=== PATIENT | male | born 1970 | race Caucasian/White ===

== ENCOUNTER → 2016-11-12 | Outpatient (REF) | payer OTHER ==
[~2016-11-12] MED LIST: DIVA500T3 PO; TIZA4CAP3 PO; VARE1TA PO; no medications
[2016-11-12 13:51] LABS: ALBUMIN/GLOBULIN RATIO 1.18 (1.00-1.93); ALKALINE PHOSPHATASE 92 U/L (45-117); ALT/SGPT 23 U/L (12-78); ANION GAP 9 MEQ/L (8-16); AST/SGOT 11 U/L (15-37); BILIRUBIN,TOTAL 0.6 MG/DL (0.2-1.0); BLOOD UREA NITROGEN 15 MG/DL (7-18); CALCIUM LEVEL 8.8 MG/DL (8.5-10.1); CARBON DIOXIDE LEVEL 23 MEQ/L (21-32); CHLORIDE LEVEL 112 MEQ/L (98-107); CREATININE FOR GFR 0.88 MG/DL (0.70-1.30); GLOMERULAR FILTRATION RATE > 60.0 (>60); GLUCOSE, FASTING 87 MG/DL (70-105); POTASSIUM SERUM 3.9 MEQ/L (3.5-5.1); SODIUM LEVEL 144 MEQ/L (136-145); TOTAL PROTEIN 7.4 GM/DL (6.4-8.2)
[2016-11-12 13:54] LABS: BASO % 0.7 % (0.0-1.0); EOS % 0.7 % (0.0-3.0); LARGE UNSTAINED CELL # 0.1 K/mm3 (0.0-0.4); LARGE UNSTAINED CELL % 0.8 % (0.0-4.0); LYMPH # 1.2 K/mm3 (1.5-4.5); MEAN CORPUSCULAR HGB CONC 34.2 g/dl (32.0-36.5); MEAN CORPUSCULAR VOLUME 93.7 fl (80.0-96.0); MONO # 0.3 K/mm3 (0.0-0.8); MONO % 4.9 % (0.0-5.0); NEUTROPHILS % 75.9 % (36.0-66.0); PLATELET COUNT, AUTOMATED 174 k/mm3 (150-450); RED CELL DISTRIBUTION WIDTH 12.3 % (11.5-14.5); WHITE BLOOD COUNT 6.6 K/mm3 (4.0-10.0)
[2016-11-12 14:51] LABS: ERYTHROCYTE SEDIMENTATION RATE 10 mm/hr (0-15)
== END ==
LOC: M LABNEURO 08:59
PROVIDERS: ATTEND Psychiatry & Neurology Neurology
DX: R51 Headache (principal)

== ENCOUNTER 2016-12-14 10:54 | Day surgery (SDC) | payer OTHER ==
[~2016-12-14] VITALS: Ht 167.6 cm; Wt 83.5 kg
[2016-12-14] MEDS ORDERED: dexameTHASONE 10 MG/1 ML VIAL PRES.FREE (J1100) ONE (10:55)
[2016-12-14] MEDS ORDERED: EPINEPHrine 1MG/10ML SYRINGE 1.5IN ONE (10:55)
[2016-12-14] MEDS ORDERED: ROPIvacaine 0.5% 30 ML INJECTION (J2795) ONE (10:55)
[2016-12-14] MEDS ORDERED: LR 1,000 ML IV SCH ×3 (11:00→18:45)
[2016-12-14] MEDS: MIDAZOLAM INJ 2 MG/2 ML VIAL (J2250) IV PRN ×4 (11:07→13:18)
[2016-12-14] MEDS: fentaNYL 100 MCG/2 ML INJECTION (J3010) IV PRN ×3 (11:07→13:10)
[2016-12-14] MEDS ORDERED: ceFAZolin 2 GM/D5W 50 ML IV BAG (J0690) As Ordered ONE (11:14)
[2016-12-14] MEDS ORDERED: MIDAZOLAM INJ 2 MG/2 ML VIAL (J2250) As Ordered ONE ×3 (11:34→13:10)
[2016-12-14] MEDS ORDERED: fentaNYL 100 MCG/2 ML INJECTION (J3010) As Ordered ONE ×3 (11:34→16:51)
[2016-12-14] MEDS ORDERED: ROCURONIUM BROMIDE 50 MG/5 ML VIAL/SYRINGE As Ordered ONE (12:58)
[2016-12-14] MEDS ORDERED: PROPOFOL 200 MG/20 ML VIAL As Ordered ONE (12:58)
[2016-12-14] MEDS ORDERED: LIDOCAINE 2% INJ 100 MG/5 ML SDV (FOR ANES.) As Ordered ONE (12:59)
[2016-12-14] MEDS ORDERED: CLINDAMYCIN 600 MG in APPROPRIATE DILUENT 1 EA IV ONE (13:00)
[2016-12-14] MEDS ORDERED: EPINEPHrine 1MG/ML INJ 30ML MD-VIAL As Ordered ONE (13:24)
[2016-12-14] MEDS ORDERED: LIDOCAINE 1% MDV 20ML VIAL As Ordered ONE (13:24)
[2016-12-14] MEDS ORDERED: CLINDAMYCIN 600 MG/50 ML PREMIX BAG As Ordered ONE (13:36)
[2016-12-14] MEDS ORDERED: BUPIVACAINE HCL 0.25% 30 ML VIAL As Ordered ONE (13:45)
[2016-12-14] MEDS ORDERED: BUPIVACAINE HCL 0.5% 30 ML VIAL As Ordered ONE (13:47)
[2016-12-14] MEDS ORDERED: ONDANSETRON 4MG/2ML VIAL (J2405) As Ordered ONE (14:39)
[2016-12-14] MEDS ORDERED: ePHEDrine SULFATE 25 MG/5 ML(5MG/ML) SYRINGE As Ordered ONE (14:39)
[2016-12-14] MEDS ORDERED: dexameTHASONE 4 MG/ML 1ML VIAL (J1100) As Ordered ONE (14:39)
[2016-12-14] MEDS ORDERED: GLYCOPYRROLATE INJ 0.2 MG/ML 2 ML VIAL As Ordered ONE (15:41)
[2016-12-14] MEDS ORDERED: NEOSTIGMINE 1MG/ML 5 ML SYRINGE (J2710) As Ordered ONE (15:41)
[2016-12-14] MEDS ORDERED: fentaNYL 100 MCG/2 ML INJECTION (J3010) IV PRN (18:30)
[2016-12-14] MEDS ORDERED: MEPERIDINE INJ 25 MG/ML VIAL (J2175) IV PRN (18:30)
[2016-12-14] MEDS ORDERED: ONDANSETRON 4MG/2ML VIAL (J2405) IV PRN (18:30)
[2016-12-14] MEDS ORDERED: IBUPROFEN 800 MG TAB PO SCH (19:00)
[2016-12-14 20:20] VITALS: BP 155/98
[2016-12-14] MEDS ORDERED: ACETAMINOPHEN 500 MG TAB PO SCH (22:00)
--- NOTE | 2016-12-15 14:56 | RO ---
DATE OF PROCEDURE: 12/14/2016 PREPROCEDURE DIAGNOSES: 1. Full thickness left rotator cuff. 2. Left shoulder superior labral tear. 3. Left shoulder acromioclavicular joint arthrosis. POSTPROCEDURE DIAGNOSES: 1. Full thickness left rotator cuff. 2. Left shoulder superior labral tear. 3. Left shoulder acromioclavicular joint arthrosis. 4. Anterior and posterior labral tear. PROCEDURE: 1. Left shoulder arthroscopy with arthroscopic rotator cuff repair including subscapularis. 2. Left shoulder open subpectoral biceps tenodesis. 3. Left shoulder arthroscopic FE on distal clavicle excision (Remedios procedure). 4. Left shoulder antroscopic anterior and posterior labral debridement. SURGEON: Dr. Feliciano Rothman. MAP MOUNTER: Carlos Nolasco PA-C ANESTHESIA: General with preoperative interscalene nerve block. IV FLUIDS: Lactated Ringers. ESTIMATED BLOOD LOSS: 50 mL. IMPLANTS: Arthrex 4.75 SwiveLock times five and Arthrex proximal unicortical Button times. CLOSURE: Nylon and Monocryl. INDICATION: Jeison is a 46-year-old gentleman who presented to my office with severe bilateral shoulder pain, left worse than right. Physical exam revealed weakness in his subscapularis and supraspinatus bilaterally with positive Mayes and dynamic labral Shear test on the left side. MRI of the left shoulder revealed full thickness tear of the supraspinatus with tendinopathy and possible partial tear of the upper subscapularis and a superior labral tear. Unfortunately, MRI of his right shoulder also showed a large rotator cuff tear. Given his young age and the full thickness tears and pain, we did discuss operative and nonoperative treatment but I recommended surgery. I recommended starting with the left shoulder, since that is the one that is more painful. We discussed the risks and benefits of arthroscopic rotator cuff repair, open subpectoral biceps tenodesis versus tenotomy, open verses arthroscopic AC joint decompression and all other indicated procedures as dictated by intraoperative findings. He understood the risks included but were not limited to bleeding, infection, damage to adjacent neurovascular structure, deep venous thrombosis/pulmonary embolus (DVT/PE), stiffness, re-tear, weakness, failure to alleviate pain, arthritis, failure to return to his prior activity level and need for additional surgery. Written informed consent obtained. DESCRIPTION OF PROCEDURE: The patient was identified in the preoperative holding and the left shoulder initialed by myself. He received a preoperative nerve block. He was then brought to the operating room (OR) and placed supine on the well-padded operating room table with a trevino bag. General anesthesia induced without complication. Preliminary time-out performed. Examination under anesthesia revealed 170 degrees passive forward flexion, 70 degrees of external rotation with his arm at his side, and grade 1 anterior and posterior translation. He was then placed on the [id number] lateral decubitus position with an ax role and bilateral Venodyne boots. All bony prominences were well padded. The beanbag was deflated and he was secured to the OR table. The left arm was then prepped and draped in the normal sterile fashion with ChloraPrep. He received appropriate IV antibiotics within 1 hour of incision. Prior to incision, a time-out was performed in which myself and all OR staff confirmed the patient's name, medical record number, date of and the correct side, site and procedure. The left arm had been sterilely placed into the lateral decubitus traction ortiz with a STaR Sleeve. Ten pounds of traction. The shoulder joint was insufflated with 20 mL of lactated Ringers. Standard posterior vein portal made with an 11 blade. 30 degree arthroscope introduced into the joint atraumatically. Diagnostic arthroscopy carried out revealing a full thickness tear of the supraspinatus and part of the infraspinatus. There was obvious tearing in the upper half of the subscapularis. There was tearing of the anterior, superior, and posterior labrum. No significant glenohumeral arthritis. An anterior working portal was localized with a spinal needle. Purple Arthrex cannula brought into the rotator interval. Probing of the subscapularis and posterior lever push confirmed a high-grade partial articular tear of the subscapularis. Probing of the bicep labral anchor complex revealed that this was unstable. In order to treat pain from type II SLAP tear and to perform arthroscopic subscapularis repair, I performed a tenotomy of the biceps tendon with a meniscal punch. The remaining superior labrum was debrided with the shaver to the stable rim. The shaver was used to debride the anterior and posterior labrum. Posterior labral tear is actually impressive but he did not have signs of posterior instability so no repair was performed. We the proceeded with open subpectoral biceps tenodesis. A 3 cm incision was made with a 15 blade just lateral to the axilla. Electrocautery and Metzenbaum scissors to dissect down to the biceps fascia. The fascia was opened with scissors carefully and then blunt dissection down to the anterior humeral cortex. A right angle clamp was used to dissect out the long head of the biceps tendon and after visually confirming the muscle tendon junction, the tendon was received through the incision uneventfully. I did not visualize the musculocutaneous nerve during this case. Arthrex proximal tenodesis Button kit was opened and the FiberLoop used to create a running locking whip stitch. Excess tendon was cut and discarded. The FiberWire sutures were loaded through the Button. The proposed drill site was marked out with electrocautery and the tendon approximated to that sandra and found to be appropriate tension. The spade tip drill bit from the kit was used to create a unicoritcal socket along the bicipital groove about a centimeter proximal to the lower edge of the pectoralis major tendon. Irrigation was used to remove bony debris. The Button was then passed on its assistant designer into the drill hole. Sutures were tensioned and the Button was flipped. The suture toggled which reduced the tendon to the anterior humeral cortex nicely. The free needle was then used to pass one limb of the suture back through the tendon to lock the construct and knots tied by hand. Excess suture trimmed and discarded. The incision was irrigated extensively with normal saline and then closed in a layered fashion with #2-0 Vicryl for deep fascia, #2-0 Vicryl subcuticular and a running #3-0 Monocryl. We then proceeded with arthroscopic subscapularis repair. The scope placed back through the posterior portal and the lesser tuberosity foot print was debrided with the 4-5 shaver. An accessory superolateral portal was localized with a spinal needle and a cannula brought in. The Arthrex FastPass Scorpion was used to pass a FiberTape through the upper one-third of the subscapularis medial enough to get into some good quality tissue. FiberTape suture limbs were then retrieved out the anterior cannula. The punch was used to create a socket in the lesser tuberosity and then SwiveLock anchor was seated by hand and the sutures tensioned. Moosic was advanced by hand with excellent fixation. On probing of the subscapularis tendon, there was a nice tight repair. The scope was then placed in the subacromial space revealing extensive bursitis and a full thickness crescent-shaped tear of the supraspinatus and anterior infraspinatus. This was amenable to a speed bridge repair. Bursectomy was performed with the 4-5 shaver and cautery. The cautery was used to clear off any remaining tissue from the footprint. Given the patient's young age and this being a large retracted tear, I did use the Arthrex PowerPick to perform a microfracture of the greater tuberosity as a biologic augmentation. Created a six small drill holes with that. A spinal needle was used to localize the anterior medial anchor and a stab incision made with the 11 blade. A punch was used to create a socket and the first SwiveLock 4.75 preloaded with FiberTape was seated by hand with excellent fixation. The FiberTape limbs were then passed one at a time in a horizontal mattress from anterior to posterior and retrieved out an accessory anterior cannula. This step was repeated. A second SwiveLock was placed further posterior on the tuberosity just off the articular surface with excellent fixation. Those TigerTape sutures were passed twice in a horizontal mattress and retrieved out the anterior cannula. It was apparent there would be a posterior dog ear so a FiberLink was passed in the far posterior portion of the rotator cuff. The anterior Fiber and TigerTapes were then retrieved out an accessory anterolateral portal and the cannula used to reduce the rotator cuff to determine appropriate lateral anchor position. A punch and 4.75 SwiveLock seated by hand. Tape sutures were tensioned and then the anchor advanced by hand with excellent fixation. Arthroscopic garment cutter was used to trim the suture tails. This step was repeated for the posterolateral anchor with the posterior Fiber and TigerTape as well as the FiberLink. After seating the posterior anchor with excellent fixation, we were able to avoid a dog ear. The humeral head was gently internally and externally rotated and the cuff moved nicely as a unit. We then proceeded with arthroscopic distal clavicle excision. The scope was placed in the posterior portal and the cautery through the anterior portal and I debrided the acromioclavicular (AC) joint. There was [id number]-[id number] contact at the joint prior to debridement. I then used a #4-0 bur to remove approximately 6-7 mm of bone from the distal clavicle and a 1-2 mm from the acromion side. The scope was placed into the anterior portal multiple times to assess the level of resection to ensure no remaining bone was left. At the end of the distal clavicle excision, there was a nice 9-10 mm gap including removal of the posterior superior clavicle. The shoulder was irrigated and drained. Arthroscopic portals were closed with #3-0 nylon suture and then Steri-Strips were placed over the tenodesis incision. Bulk sterile bandage was applied. All counts correct times two. The patient was carefully placed into a sling with a bolster and then awakened from general anesthesia. He was transferred to the postanesthesia care unit (PACU) in stable condition. COMPLICATIONS: None. DISPOSITION: The patient will be strict non-weightbearing left upper extremity with a sling and bolster at all times. Followup in 10 days for suture removal.
== END 2016-12-14 20:30 | disposition home or self-care (01) ==
LOC: M SDC 10:54
PROVIDERS: ATTEND Orthopaedic Surgery
DX: M75.102 Unspecified rotator cuff tear or rupture of left shoulder, not specified as traumatic (principal); M19.012 Primary osteoarthritis, left shoulder; Z88.0 Allergy status to penicillin; Z87.891 Personal history of nicotine dependence; M75.22 Bicipital tendinitis, left shoulder
CPT/HCPCS: 23430; 29823; 29824; 29827; 64415; C1713

== ENCOUNTER → 2017-01-18 | Outpatient (REF) ==
--- NOTE | 2017-01-19 05:03 | REP ---
Clinical: Pain. Technique: Neutral and Y view of the left shoulder. Findings: Spurring and cortical irregularity at the acromioclavicular joint along with cortical irregularity to the humeral head and glenoid rim with small periarticular calcification is consistent with mild/moderate arthritic degenerative changes and calcific tendinopathy. Impression: Mild/moderate arthritic degenerative changes. Signed by Favio Mccormick MD 01/19/2017 04:55 A
== END ==
LOC: M SMT 09:51
PROVIDERS: ATTEND Internal Medicine
DX: Z02.9 Encounter for administrative examinations, unspecified (principal)

== ENCOUNTER 2017-07-25 05:48 | Day surgery (SDC) | payer OTHER ==
[2017-07-25] MEDS ORDERED: dexameTHASONE 10 MG/1 ML VIAL PRES.FREE (J1100) (05:49)
[2017-07-25] MEDS ORDERED: LIDOCAINE 1% MDV 20ML VIAL (05:49)
[2017-07-25] MEDS ORDERED: ROPIvacaine 0.5% 30 ML INJECTION (J2795 PER 1MG) (05:49)
[2017-07-25] MEDS ORDERED: MIDAZOLAM INJ 2 MG/2 ML VIAL (J2250) As Ordered ×2 (06:09→06:38)
[2017-07-25] MEDS ORDERED: fentaNYL 250 MCG/5 ML INJECTION (J3010) As Ordered (06:09)
[2017-07-25] MEDS ORDERED: PROPOFOL 200 MG/20 ML VIAL As Ordered (06:09)
[2017-07-25] MEDS ORDERED: ROCURONIUM BROMIDE 50 MG/5 ML VIAL As Ordered (06:09)
[2017-07-25] MEDS ORDERED: dexameTHASONE 4 MG/ML 1ML VIAL (J1100) As Ordered (06:10)
[2017-07-25] MEDS ORDERED: ONDANSETRON 4MG/2ML VIAL (J2405) As Ordered (06:10)
[2017-07-25] MEDS ORDERED: KETOROLAC 60 MG/2 ML VIAL (J1885) As Ordered (06:10)
[2017-07-25] MEDS ORDERED: LIDOCAINE 2% INJ 100 MG/5 ML SDV (FOR ANES.) As Ordered (06:10)
[2017-07-25] MEDS ORDERED: fentaNYL 100 MCG/2 ML INJECTION (J3010) As Ordered (06:38)
[2017-07-25] MEDS ORDERED: BUPIVACAINE HCL 0.5% 30 ML VIAL As Ordered (07:03)
[2017-07-25] MEDS: VANCOMYCIN HCL 1,000 MG, VIAL MATE ADAPTER 1 EACH in D5W 250 ML IV (07:12)
[2017-07-25] MEDS ORDERED: LR 1,000 ML IV ×3 (07:15→11:00)
[2017-07-25] MEDS: MIDAZOLAM INJ 2 MG/2 ML VIAL (J2250) IV (07:24)
[2017-07-25] MEDS: fentaNYL 100 MCG/2 ML INJECTION (J3010) IV (07:24)
[2017-07-25] MEDS ORDERED: ePHEDrine INJ 50 MG/ML VIAL As Ordered ×2 (07:56)
[2017-07-25] MEDS: EPINEPHrine 1MG/ML INJ 30ML MD-VIAL As Ordered (08:58)
[2017-07-25] MEDS ORDERED: HYDROmorphone HCL 1 MG/ML SYRINGE (J1170) IV (11:00)
[2017-07-25] MEDS ORDERED: ONDANSETRON 4MG/2ML VIAL (J2405) IV (11:00)
[2017-07-25] MEDS ORDERED: fentaNYL 100 MCG/2 ML INJECTION (J3010) IV (11:00)
[2017-07-25] MEDS: PERCOCET 5MG/325MG TAB PO (11:15)
== END 2017-07-25 13:36 | disposition home or self-care (01) ==
LOC: M SDC 05:48
DX: M75.121 Complete rotator cuff tear or rupture of right shoulder, not specified as traumatic (principal); M75.41 Impingement syndrome of right shoulder; K21.9 Gastro-esophageal reflux disease without esophagitis; M06.9 Rheumatoid arthritis, unspecified; G43.909 Migraine, unspecified, not intractable, without status migrainosus; R06.83 Snoring; Z88.0 Allergy status to penicillin; Z72.0 Tobacco use
CPT/HCPCS: 29827

== ENCOUNTER → 2018-03-21 | Outpatient (CLI) | payer OTHER ==
[~2018-03-21] MED LIST changes: +CALC500T49 PO; -DIVA500T3 PO; +DIVA500T94 PO; +MULT1TAB10 PO; +TIZA4CAP PO; -TIZA4CAP3 PO; +VITA100067 PO
--- NOTE | 2018-03-21 10:50 | REP ---
MRI LUMBAR SPINE WITHOUT CONTRAST: HISTORY: Bilateral leg pain. Decreased signal intensity on T2-weighted images is present in the lumbar intervertebral discs. The L3-4 through L5-S1 intervertebral discs are decreased in height. These findings are consistent with disc degeneration. There is no disc bulge or herniation at the L1-2 level. The L1 nerves exit the neural foramina without compression. A diffuse disc bulge is present at the L2-3 level. There is hypertrophy of the ligamenta flava and posterior articulating facets. These findings produce mild central canal stenosis. The L2 nerves exit the neural foramina without compression. A diffuse disc bulge is present at the L3-4 level. There is hypertrophy of the ligamenta flava and posterior articulating facets. These findings produce mild central canal stenosis. The L3 nerves exit the neural foramina without compression. A diffuse disc bulge is present at the L4-5 level. There is hypertrophy of the ligamenta flava and posterior articulating facets. These findings produce minimal central canal stenosis. The L4 nerves exit the neural foramina without compression. A diffuse disc bulge is present at the L5-S1 level. This abuts the thecal sac and S1 nerves. There is hypertrophy of the posterior articulating facets. The L5 nerves exit the neural foramina without compression. The conus medullaris is normal in appearance terminating at the level of the L1-2 intervertebral disc. Increased signal intensity on T2-weighted images is present in the endplates of T12 and L1 vertebral bodies. This represents degenerative change. IMPRESSION: 1. Mild central canal stenosis at the L2-3 and L3-4 levels secondary to disc bulge, ligamentous, and facet hypertrophy. 2. Minimal central canal stenosis at the L4-5 level secondary to disc bulge, ligamentous, and facet hypertrophy. 3. Diffuse disc bulge at the L5-S1 level. This abuts the thecal sac and S1 nerves. Electronically Signed by Akhil Stoddard MD 03/21/2018 10:52 A
== END ==
LOC: M RAD 06:49
PROVIDERS: ATTEND Physician Assistant
DX: M48.061 Spinal stenosis, lumbar region without neurogenic claudication (principal); M51.27 Other intervertebral disc displacement, lumbosacral region

== ENCOUNTER → 2018-03-30 | Outpatient (CLI) | payer OTHER ==
--- NOTE | 2018-03-30 12:01 | REP ---
MRI CERVICAL SPINE WITHOUT CONTRAST: HISTORY: Cervical radiculopathy. Neck and bilateral arm and leg pain. Rule out stenosis versus disc herniation. No comparison cervical spine imaging. TECHNIQUE: Sagittal and axial T1- and T2-weighted scans are acquired in the usual fashion with and without fat saturation. Sequences include spin echo, turbo spin-echo, and STIR imaging sequences. MRI FINDINGS: There is some straightening of the normal cervical lordosis. Cervical vertebral body heights are preserved. Alignment is otherwise normal. Cortical and medullary bone signal intensity are normal. Craniocervical junction is unremarkable. Cervical cord is normal in coarse, caliber, and signal intensity on T1- and T2-weighted scans. Axial and sagittal images at the C2-3 disc level show no significant finding. At C3-C4, there is mild disc space narrowing. There is mild diffuse disc bulging effacing the ventral subarachnoid space. No cord compression is seen. The central canal is developmentally somewhat narrow. Mid AP dimension of the thecal sac is 8.5 mm. There is mild bilateral uncovertebral spurring. At C4-5, there are similar findings with diffuse disc bulging and posterior osteophytic ridging. Mild bilateral uncovertebral spurring is seen. Canal size again noted to be developmentally small. 8.3 mm midline AP dimension. At C5-C6, there is a small central focal disc protrusion effacing the ventral subarachnoid space but not contacting or compressing the cord. No significant central canal stenosis is seen. No neural foraminal narrowing is seen at C5-6. At C6-C7, there is a broad-based central disc protrusion effacing the ventral subarachnoid space. This combined with mild dorsal ligamentum flavum hypertrophy produces mild central canal stenosis effacing the T2-weighted CSF signal intensity. The cord is not visibly compressed. Mid sagittal AP dimension of the thecal sac at the C6-C7 level is 7 mm. Cord signal intensity is normal. There is mild bilateral uncovertebral spurring. At C7-T1, there is a small right paracentral focal disc protrusion visible without cord compression. No neural foraminal narrowing. At T1-T2 and at the T2-T3, there is mild central disc bulging. IMPRESSION: Degenerative spondylosis changes. The dominant abnormality is at C6-7 where there is central canal stenosis due to broad-based focal disc protrusion. Bilateral neural foraminal narrowing. Developmentally narrow canal at C4-5 and C3-4 to some degree. Electronically Signed by Walter Saha MD 03/30/2018 12:50 P
== END ==
LOC: M RAD 10:10
PROVIDERS: ATTEND Physician Assistant
DX: M50.21 Other cervical disc displacement, high cervical region (principal); M50.221 Other cervical disc displacement at C4-C5 level; M50.122 Cervical disc disorder at C5-C6 level with radiculopathy; M50.123 Cervical disc disorder at C6-C7 level with radiculopathy; M47.892 Other spondylosis, cervical region; M50.13 Cervical disc disorder with radiculopathy, cervicothoracic region; M51.14 Intervertebral disc disorders with radiculopathy, thoracic region

== ENCOUNTER → 2018-04-21 | Outpatient (CLI) | payer OTHER ==
--- NOTE | 2018-04-21 23:58 | ECGEPIP ---
Stationary ECG Study [facility] Test Date: 2018-04-21 Pat Name: TROY ORTEGA Department: Room: - Gender: M Customer Support Agent: : [id number] Requested By: Tyree Venegas Order Number: [id number] Reading MD: Burak Schneider Measurements Intervals Hopkins Rate: 73 P: 38 IN: 188 QRS: 47 QRSD: 86 T: 21 QT: 352 QTc: 390 Interpretive Statements SINUS RHYTHM Comparison tracing not on file Electronically Signed On 04-21-2018 23:58:36 EST by Burak Schneider
== END ==
LOC: M EKG 11:56
PROVIDERS: ATTEND Physical Medicine & Rehabilitation
DX: M43.06 Spondylolysis, lumbar region (principal)

== ENCOUNTER → 2018-05-04 | Outpatient (CLI) | payer OTHER ==
[2018-05-04 11:36] LABS: HEMATOCRIT 48.3 % (42.0-52.0); HEMOGLOBIN 16.5 g/dl (13.5-17.5); MEAN CORPUSCULAR HEMOGLOBIN 31.7 pg (27.0-33.0); MEAN CORPUSCULAR HGB CONC 34.2 g/dl (32.0-36.5); MEAN CORPUSCULAR VOLUME 92.7 fl (80.0-96.0); PLATELET COUNT, AUTOMATED 208 10^3/uL (150-450); RED BLOOD COUNT 5.21 10^6/uL (4.30-6.10); WHITE BLOOD COUNT 8.7 10^3/uL (4.0-10.0)
[2018-05-04 11:47] LABS: INR 0.93; PROTHROMBIN TIME 12.6 SECONDS (12.1-14.4)
[2018-05-04 11:48] LABS: PARTIAL THROMBOPLASTIN TIME 34.4 SECONDS (25.4-37.6)
== END ==
LOC: M LAB 11:01
PROVIDERS: ATTEND Physical Medicine & Rehabilitation
DX: D69.1 Qualitative platelet defects (principal)

== ENCOUNTER → 2018-06-20 | Outpatient (CLI) | payer OTHER ==
[2018-06-20 20:03] LABS: COLLAGEN EPINEPHRINE 90 SECONDS (74-162)
== END ==
LOC: M LAB 17:56
PROVIDERS: ATTEND Physical Medicine & Rehabilitation
DX: Z01.818 Encounter for other preprocedural examination (principal)

== ENCOUNTER 2019-01-22 04:37 | Emergency (ER) | payer OTHER ==
[~2019-01-22] VITALS: Ht 167.6 cm; Wt 81.8 kg
[2019-01-22] MEDS ORDERED: KETOROLAC 30 MG/ML VIAL (J1885) IV ONE (06:30)
[2019-01-22] MEDS ORDERED: METHOCARBAMOL 1,000 MG/10 ML VIAL (J2800) IV ONE (06:30)
[2019-01-22 08:02] VITALS: BP 133/84
== END 2019-01-22 08:02 | disposition home or self-care (01) ==
LOC: M ED 04:37
DX: M54.5 Low back pain (principal); F17.200 Nicotine dependence, unspecified, uncomplicated; F12.10 Cannabis abuse, uncomplicated; Z88.0 Allergy status to penicillin
CPT/HCPCS: 96374; 96375; 99284; J1885; J2800

== ENCOUNTER → 2019-04-17 | Outpatient (CLI) | payer OTHER ==
--- NOTE | 2019-04-17 15:02 | REP ---
INDICATION: Neck pain PROCEDURE: MRI lumbar spine MRI cervical spine, sagittal T1-T2 and STIR images, axial T1 and T2-weighted images. COMPARISON STUDIES: MRI of the cervical spine 03/30/2019 FINDINGS: There is bizr-mr-[id number] multilevel degenerative disc disease loss of disc height and disc desiccation seen diffusely throughout the cervical spine. Vertebral heights are well preserved. No malalignments. Craniovertebral junction is unremarkable. Cervical cord is normal in its course, caliber and signal characteristics. On the review of axial images, At C2-3 no significant canal or foraminal narrowing At C3-4 disc/osteophyte complex with mild canal narrowing and [id number]-ca-[id number] bilateral foraminal narrowing At C4-5 disc/osteophyte complex with mild canal narrowing and owfa-xy-jvpfjpwq bilateral foraminal narrowing At C5-6 C6-7 and C7-T1 no significant canal or foraminal narrowing. On the STIR images, no significant STIR signal abnormality to suggest soft tissue or ligamentous injury. When compared to the prior study of 03/30/2019, no gross changes. IMPRESSION: No acute findings. Degenerative changes. When compared prior study 03/30/2019, stable examination. Electronically Signed by Jeff Mohan MD 04/17/2019 02:53 P
== END ==
LOC: M RAD 12:32
PROVIDERS: ATTEND Family Medicine
DX: M50.31 Other cervical disc degeneration, high cervical region (principal); M50.321 Other cervical disc degeneration at C4-C5 level

== ENCOUNTER → 2019-06-06 | Outpatient (REF) | payer OTHER, MEDICAID ==
[2019-06-06 13:25] LABS: BASO # 0.1 10^3/uL (0.0-0.2); BASO % 0.4 % (0.0-1.0); EOS # 0.1 10^3/uL (0.0-0.5); EOS % 0.3 % (0.0-3.0); HEMATOCRIT 50.1 % (42.0-52.0); HEMOGLOBIN 16.9 g/dl (13.5-17.5); LYMPH # 1.9 10^3/uL (1.5-5.0); LYMPH % 12.8 % (24.0-44.0); MEAN CORPUSCULAR HEMOGLOBIN 31.9 pg (27.0-33.0); MEAN CORPUSCULAR HGB CONC 33.7 g/dl (32.0-36.5); MEAN CORPUSCULAR VOLUME 94.5 fl (80.0-96.0); MONO # 0.6 10^3/uL (0.0-0.8); MONO % 4.1 % (0.0-5.0); NEUTROPHILS # 12.1 10^3/uL (1.5-8.5); NEUTROPHILS % 81.9 % (36.0-66.0); PLATELET COUNT, AUTOMATED 214 10^3/uL (150-450); WHITE BLOOD COUNT 14.7 10^3/uL (4.0-10.0)
[2019-06-06 13:52] LABS: ALBUMIN 3.9 GM/DL (3.2-5.2); ALT/SGPT 28 U/L (12-78); BILIRUBIN,TOTAL 0.4 MG/DL (0.2-1.0); BLOOD UREA NITROGEN 22 MG/DL (7-18); CALCIUM LEVEL 9.4 MG/DL (8.5-10.1); CARBON DIOXIDE LEVEL 28 MEQ/L (21-32); CHLORIDE LEVEL 109 MEQ/L (98-107); CHOLESTEROL LEVEL 222 MG/DL (<200); CHOLESTEROL RISK RATIO 6.166 (<5); CREATININE FOR GFR 1.22 MG/DL (0.70-1.30); GLOMERULAR FILTRATION RATE > 60.0 (>60); GLUCOSE, FASTING 102 MG/DL (70-100); HDL CHOLESTEROL 36 MG/DL (>40); NON-HDL-C 186 MG/DL; POTASSIUM SERUM 3.8 MEQ/L (3.5-5.1); SODIUM LEVEL 144 MEQ/L (136-145); TOTAL PROTEIN 7.4 GM/DL (6.4-8.2); TRIGLYCERIDES LEVEL 462 MG/DL (<150)
[2019-06-06 14:25] LABS: HEMOGLOBIN A1c 5.5 %
== END ==
LOC: M LAB REF 12:53
PROVIDERS: ATTEND Nurse Practitioner Family
DX: M79.2 Neuralgia and neuritis, unspecified (principal); M79.643 Pain in unspecified hand; Z72.0 Tobacco use; M25.511 Pain in right shoulder; M54.5 Low back pain; M54.2 Cervicalgia

== ENCOUNTER → 2019-07-30 | Outpatient (REF) | payer OTHER, MEDICAID ==
[2019-07-30 16:47] LABS: BASO % 0.4 % (0.0-1.0); EOS % 0.4 % (0.0-3.0); HEMATOCRIT 48.2 % (42.0-52.0); HEMOGLOBIN 16.2 g/dl (13.5-17.5); LYMPH # 1.4 10^3/uL (1.5-5.0); MEAN CORPUSCULAR HEMOGLOBIN 31.2 pg (27.0-33.0); MEAN CORPUSCULAR HGB CONC 33.6 g/dl (32.0-36.5); MEAN CORPUSCULAR VOLUME 92.9 fl (80.0-96.0); MONO # 0.6 10^3/uL (0.0-0.8); MONO % 6.2 % (0.0-5.0); NEUTROPHILS # 7.2 10^3/uL (1.5-8.5); NEUTROPHILS % 77.5 % (36.0-66.0); PLATELET COUNT, AUTOMATED 208 10^3/uL (150-450); RED BLOOD COUNT 5.19 10^6/uL (4.30-6.10); WHITE BLOOD COUNT 9.3 10^3/uL (4.0-10.0)
[2019-07-30 16:50] LABS: ALT/SGPT 46 U/L (12-78); BILIRUBIN,TOTAL 0.6 MG/DL (0.2-1.0); BLOOD UREA NITROGEN 16 MG/DL (7-18); CALCIUM LEVEL 8.9 MG/DL (8.5-10.1); CARBON DIOXIDE LEVEL 26 MEQ/L (21-32); CHLORIDE LEVEL 109 MEQ/L (98-107); CHOLESTEROL LEVEL 190 MG/DL (<200); FREE T4 0.98 NG/DL (0.76-1.46); GLOMERULAR FILTRATION RATE > 60.0 (>60); GLUCOSE, FASTING 110 MG/DL (70-100); HDL CHOLESTEROL 38 MG/DL (>40); LDL CHOLESTEROL 125 MG/DL (<100); NON-HDL-C 152 MG/DL; POTASSIUM SERUM 4.4 MEQ/L (3.5-5.1); SODIUM LEVEL 142 MEQ/L (136-145); TOTAL PROTEIN 7.4 GM/DL (6.4-8.2); TRIGLYCERIDES LEVEL 136 MG/DL (<150)
== END ==
LOC: M LAB REF 16:08
PROVIDERS: ATTEND Nurse Practitioner Family
DX: D72.0 Genetic anomalies of leukocytes (principal); E78.49 Other hyperlipidemia; M79.2 Neuralgia and neuritis, unspecified

== ENCOUNTER → 2019-09-19 | Outpatient (REF) | payer OTHER, MEDICAID ==
[~2019-09-19] MED LIST changes: +CYCL-707; +GABA800T4 PO; +KETO10TAB PO; +LIDO5DIS41 TOP; +METH-1165; +ULTR50TA8 PO
[2019-09-19 12:54] LABS: BASO # 0.1 10^3/uL (0.0-0.2); BASO % 0.8 % (0.0-1.0); EOS # 0.1 10^3/uL (0.0-0.5); EOS % 1.4 % (0.0-3.0); HEMATOCRIT 48.1 % (42.0-52.0); LYMPH # 1.6 10^3/uL (1.5-5.0); MEAN CORPUSCULAR HEMOGLOBIN 31.3 pg (27.0-33.0); MEAN CORPUSCULAR HGB CONC 33.3 g/dl (32.0-36.5); MEAN CORPUSCULAR VOLUME 93.9 fl (80.0-96.0); MONO # 0.6 10^3/uL (0.0-0.8); MONO % 9.1 % (0.0-5.0); NEUTROPHILS % 63.2 % (36.0-66.0); PLATELET COUNT, AUTOMATED 185 10^3/uL (150-450); RED BLOOD COUNT 5.12 10^6/uL (4.30-6.10); WHITE BLOOD COUNT 6.4 10^3/uL (4.0-10.0)
[2019-09-19 13:32] LABS: ALBUMIN 3.8 GM/DL (3.2-5.2); ALT/SGPT 33 U/L (12-78); BILIRUBIN,TOTAL 0.4 MG/DL (0.2-1.0); BLOOD UREA NITROGEN 15 MG/DL (7-18); CALCIUM LEVEL 8.6 MG/DL (8.5-10.1); CARBON DIOXIDE LEVEL 23 MEQ/L (21-32); CHLORIDE LEVEL 110 MEQ/L (98-107); CHOLESTEROL LEVEL 187 MG/DL (<200); CHOLESTEROL RISK RATIO 6.032 (<5); CREATININE FOR GFR 0.87 MG/DL (0.70-1.30); FREE T4 0.97 NG/DL (0.76-1.46); GLOMERULAR FILTRATION RATE > 60.0 (>60); GLUCOSE, FASTING 93 MG/DL (70-100); HDL CHOLESTEROL 31 MG/DL (>40); LDL CHOLESTEROL 121 MG/DL (<100); NON-HDL-C 156 MG/DL; POTASSIUM SERUM 3.9 MEQ/L (3.5-5.1); SODIUM LEVEL 139 MEQ/L (136-145); TRIGLYCERIDES LEVEL 174 MG/DL (<150)
== END ==
LOC: M LAB REF 11:53
PROVIDERS: ATTEND Nurse Practitioner Family
DX: D72.0 Genetic anomalies of leukocytes (principal); E78.49 Other hyperlipidemia; M79.2 Neuralgia and neuritis, unspecified

== ENCOUNTER 2019-10-20 20:17 | Emergency (ER) | payer MEDICAID, OTHER ==
[~2019-10-20] VITALS: Ht 167.6 cm; Wt 84.1 kg
[~2019-10-20 20:17] MED LIST changes: -CYCL-707; -GABA800T4 PO; -KETO10TAB PO; -LIDO5DIS41 TOP; -METH-1165; -ULTR50TA8 PO
[2019-10-20 20:18] VITALS: BP 149/92
[2019-10-21] MEDS ORDERED: GABA800T4 PO (07:49)
[2019-10-21] MEDS ORDERED: METH750T2 (07:49)
[2019-10-21] MEDS ORDERED: CYCL-707 (07:50)
[2019-10-21] MEDS ORDERED: LIDO5DIS41 TOP (09:47)
[2019-10-21] MEDS ORDERED: KETO10TAB PO (09:47)
== END 2019-10-20 20:27 | disposition left against medical advice (07) ==
LOC: M ED 20:17
DX: Z53.21 Procedure and treatment not carried out due to patient leaving prior to being seen by health care provider (principal)

== ENCOUNTER 2019-10-21 07:42 | Emergency (ER) | payer OTHER ==
[~2019-10-21] VITALS: Ht 167.6 cm; Wt 82.1 kg
[2019-10-21] MEDS ORDERED: METH750T2 (07:49)
[2019-10-21] MEDS ORDERED: GABA800T4 PO (07:49)
[2019-10-21] MEDS ORDERED: CYCL-707 (07:50)
[2019-10-21] MEDS ORDERED: KETOROLAC 30 MG/ML 1ML VIAL IV ONE (08:15)
[2019-10-21] MEDS ORDERED: LIDOCAINE 5% (LIDODERM) PATCH TD ONE (08:15)
[2019-10-21 09:47] VITALS: BP 151/82
[2019-10-21] MEDS ORDERED: KETO10TAB PO (09:47)
[2019-10-21] MEDS ORDERED: LIDO5DIS41 TOP (09:47)
--- NOTE | 2019-10-21 11:41 | REP ---
REASON: Pain. No trauma. Marginal osteophytosis is seen at multiple levels bilaterally, greatest on the right at L1-2 and on the left at L2-3. The pedicles are intact bilaterally. There is disc space narrowing, which is mild and posterior at all levels. Vertebral body height and alignment is within normal limits. IMPRESSION: Chronic changes. Electronically Signed by Tonny Rey DO 10/21/2019 12:07 P
[2019-10-21] MEDS ORDERED: **NOTE PATIENT COMMENT** MISC XX SCH (21:00)
== END 2019-10-21 09:54 | disposition home or self-care (01) ==
LOC: M ED 07:42
DX: M51.37 Other intervertebral disc degeneration, lumbosacral region (principal); M25.78 Osteophyte, vertebrae; G89.29 Other chronic pain; F17.200 Nicotine dependence, unspecified, uncomplicated
CPT/HCPCS: 72110; 80047; 96374; 99284; J1885

== ENCOUNTER 2020-01-25 15:51 | Emergency (ER) | payer OTHER ==
[~2020-01-25] VITALS: Ht 167.6 cm; Wt 87.6 kg
[2020-01-25 15:51] VITALS: BP 141/79
[~2020-01-25 15:51] MED LIST changes: +CYCL-707; +GABA800T4 PO; +KETO10TAB PO; +LIDO5DIS41 TOP; +METH750T2
[2020-01-25] MEDS ORDERED: KETOROLAC 60MG 2ML VIAL IM ONE (16:15)
[2020-01-25] MEDS ORDERED: diazePAM 10MG/2ML SYRINGE (J3360 PER 5MG) IM ONE (16:15)
[2020-01-25] MEDS ORDERED: ULTR50TA8 PO (16:22)
== END 2020-01-25 17:00 | disposition home or self-care (01) ==
LOC: M ED 15:51
DX: G89.29 Other chronic pain (principal); M54.5 Low back pain; F17.210 Nicotine dependence, cigarettes, uncomplicated; Z88.0 Allergy status to penicillin
CPT/HCPCS: 96372; 99282; J1885; J3360

== ENCOUNTER → 2020-02-04 | Outpatient (CLI) | payer OTHER ==
[~2020-02-04] MED LIST changes: +ULTR50TA8 PO
[2020-02-04 19:24] LABS: FREE T4 0.92 NG/DL (0.76-1.46); RHEUMATOID FACTOR QUANT < 10.0 IU/ML (<15.0); THYROID STIMULATING HORMONE 0.856 uIU/ML (0.358-3.740); TOTAL PROTEIN 7.5 GM/DL (6.4-8.2); VITAMIN B12 LEVEL 274 PG/ML
[2020-02-04 19:25] LABS: FOLATE 10.3 NG/ML
[2020-02-04 20:21] LABS: HEMOGLOBIN A1c 5.3 %
[2020-02-05 14:20] LABS: ALBUMIN 4.47 GM/DL (3.29-5.55); ALBUMIN % 59.6 % (55.8-66.1); ALPHA-1-GLOBULIN % 4.9 % (2.9-4.9); ALPHA-1-GLOBULINS 0.37 GM/DL (0.17-0.41); ALPHA-2-GLOBULINS % 10.6 % (7.1-11.8); BETA-1-GLOBULINS 0.53 GM/DL (0.28-0.60); BETA-1-GLOBULINS % 7.1 % (4.7-7.2); BETA-2-GLOBULINS 0.46 GM/DL (0.19-0.55); BETA-2-GLOBULINS % 6.1 % (3.2-6.5); GAMMA GLOBULIN % 11.7 % (11.1-18.8); GAMMA GLOBULINS 0.88 GM/DL (0.65-1.58)
[2020-02-06 11:03] LABS: DRVV SCREEN 41.9 SEC
== END ==
LOC: M PLALAB 12:35
PROVIDERS: ATTEND Psychiatry & Neurology Neurology
DX: I73.9 Peripheral vascular disease, unspecified (principal); M54.2 Cervicalgia; M54.5 Low back pain

== ENCOUNTER 2020-02-24 21:17 | Emergency (ER) | payer OTHER ==
[~2020-02-24] VITALS: Ht 167.6 cm; Wt 87.3 kg
[2020-02-24 21:18] VITALS: BP 152/69
== END 2020-02-24 22:52 | disposition left against medical advice (07) ==
LOC: M ED 21:17
DX: Z53.21 Procedure and treatment not carried out due to patient leaving prior to being seen by health care provider (principal)

== ENCOUNTER → 2020-04-13 | Outpatient (CLI) | payer OTHER | LOC: M LABSMTC 08:40 | PROVIDERS: ATTEND Anesthesiology | DX: Z01.812 Encounter for preprocedural laboratory examination (principal); Z20.822 Contact with and (suspected) exposure to COVID-19 ==

== ENCOUNTER 2020-04-18 07:12 | Day surgery (SDC) | payer OTHER ==
[~2020-04-18] VITALS: Ht 167.6 cm; Wt 84.9 kg
[~2020-04-18 07:12] MED LIST changes: +LIDOCAINE 2% 100MG/5ML SDV (FOR ANES.) As Ordered ONE; +METH-1165; -METH750T2; +propofoL 200 MG/20 ML VIAL As Ordered ONE
--- OUTSIDE RECORDS SUMMARY | 2020-04-18 07:17 | CCD ---
Author Organization Unknown Address [address] [place] [address] Phone [phone] Care Team Providers Care Bone Glue Maker Name Role Phone BRETT MANRIQUEZ MD 4 [phone] Allergies Code Code System Name Reaction Severity Status Onset Penicillins Active 11/24/2016 Medications Name Status Start Date Stop Date gabapentin 800 mg tablet Take 1 tablet as needed by oral route as needed. Active Not available tramadol 50 mg tablet Take 1 tablet every 6 hours by oral route. Active Not available Zanaflex 4 mg tablet Take 1 tablet 3 times a day by oral route as needed. Active Not available Problems Name Status Onset Date Source Arthropathy Active 11/24/2016 History Muscle Pain Active 11/24/2016 History Finding of Upper Limb Active 11/24/2016 History Procedures Date Name Performed by 04/04/2016 Complete Repair of Rotator C uff Notes: unsure of date and right shoulder Information not available Notes: gland from jaw removed as a child 11/24/2016 Results Lab Results None recorded. Past Encounters 04/16/2020 Pre-surgery Testing; Viral Screening Steven Lozada MD: [id number] [facility] [address], [place] [address], Ph. [phone] 04/01/2020 Cervical Spondylosis without Myelopathy; Lumbosacral Spondylosis without Myelopathy; Cervical Radiculopathy; Displacement of Cervical Intervertebral Disc without Myelopathy; Degeneration of Cervical Intervertebral Disc; Myofascial Pain; Inflammation of Sacroiliac Joint; Lumbar Radiculopathy; Degeneration of Lumbar Intervertebral Disc; Degeneration of Lumbosacral Intervertebral Disc; Displacement of Lumbar Intervertebral Disc without Myelopathy; Intervertebral Disc Disorder; Spondylosis without Myelopathy Cathryn Villalobos PROPERTY MAINTENANCE SUPERVISOR: [id number] [facility] [address], [place] [address], Ph. 03/04/2020 Low Back Pain; Cervical Spondylosis without Myelopathy; Lumbosacral Spondylosis without Myelopathy; Cervical Radiculopathy; Displacement of Cervical Intervertebral Disc without Myelopathy; Degeneration of Cervical Intervertebral Disc; Myofascial Pain Cathryn Villalobos, PROPERTY MAINTENANCE SUPERVISOR: [id number] [facility] [address], [facility] [place] [address], Ph. 02/06/2020 Low Back Pain; Cervical Spondylosis without Myelopathy; Lumbosacral Spondylosis without Myelopathy; Cervical Radiculopathy; Displacement of Cervical Intervertebral Disc without Myelopathy; Degeneration of Cervical Intervertebral Disc; Myofascial Pain Cathryn Villalobos, PROPERTY MAINTENANCE SUPERVISOR: [id number] [facility] [address], [facility] [place] [address], Ph. Social History Tobacco Smoking Status Light Tobacco Smoker (1 PPW) Vaccine List None recorded. Plan of Care Reminders Provider Appointments None recorded. Lab None recorded. Referral None recorded. Procedures None recorded. Surgeries None recorded. Imaging None recorded. Vitals 04/01/2020 09:30AM FOLLOW-UP Blood Pressure 164/82 mm[Hg] 03/04/2020 02:30PM FOLLOW-UP Blood Pressure 135/83 mm[Hg] 02/06/2020 03:45PM Extended Follow Up Visit Blood Pressure 164/94 mm[Hg] 11/24/2016 Height Weight BMI Blood Pressure 5 ft 6 in 190 lbs 30.78 kg/m2 130/84 mm[Hg]
--- OUTSIDE RECORDS SUMMARY | 2020-04-18 07:17 | CCD | Continuity of Care Document ---
Author Author Jeison GRAY M.D. Organization Unknown Address [address] [place] [address] Phone [phone] Care Team Providers Care Pin Attacher Name Role Phone James Cornejo M.D. AUTM [phone] Problems Active Problems Provider Date Headache Melissa Gray M.D. Onset: 11/12/2016 Social History Type Date Description Comments Sex Unknown Tobacco Use Start: Unknown End: Unknown Patient is a former smoker Allergies, Adverse Reactions, Alerts Active Allergies Reaction Severity Comments Date Penicillin 11/12/2016 Medications Active Medications SIG Qnty Indications Ordering Provide r Date Ibuprofen 800mg Tablets Unknown Oxycodone HCL Tablets Unknown Immunizations Description No Information Available Vital Signs Date Vital Result Comment 11/12/2016 5:18pm Respiratory Rate 14 /min Height 66 inches 5'6" Weight 184.00 lb BMI (Body Mass Index) 29.7 kg/m2 [place] Body Weight 142 lb Results Test Acquired Date Facility Test Result H/L Range Note Laboratory test finding 02/04/2020 [facility] Erythrocyte Sedimentation Rate 4 mm/hr Normal 0-20 Hemoglobin A1c 02/04/2020 [facility] Hemoglobin A1c 5.3 % Normal 1 Estimated Average Glucose 105 mg/dL Normal 60-110 Lupus Type Anticoagulant Scree 02/04/2020 [facility] PTT Lupus Type Anticoag Screen 1.0 Normal 0-1.2 2 Serum Protein Electrophoresis 02/04/2020 [facility] Albumin % 59.6 % Normal 55.8-66.1 Rjijn-2-Obxsknvd % 4.9 % Normal 2.9-4.9 Uduqq-6-Adsgyuyeq % 10.6 % Normal 7.1-11.8 Ewgg-5-Kyclzssow % 7.1 % Normal 4.7-7.2 Echr-8-Jxazhzudp % 6.1 % Normal 3.2-6.5 Gamma Globulin % 11.7 % Normal 11.1-18.8 Albumin 4.47 GM/DL Normal 3.29-5.55 Qjzku-9-Ihgkrkegv 0.37 GM/DL Normal 0.17-0.41 Gzrfg-4-Iuvibpoyt 0.80 GM/DL Normal 0.42-0.99 Exqm-2-Ahhjwoldo 0.53 GM/DL Normal 0.28-0.60 Jugg-7-Oogetajjq 0.46 GM/DL Normal 0.19-0.55 Gamma Globulins 0.88 GM/DL Normal 0.65-1.58 Total Protein 7.5 GM/DL Normal 6.4-8.2 Spep Interpretation SEE COMMENT Normal 3 Spep Pathologist Review REV'D BY Francisca GUTIERREZ Normal Laboratory test finding 02/04/2020 [facility] Thyroid Stimulating Hormone 0.856 uIU/ML Normal 0.358-3.740 Free T4 0.92 ng/dL Normal 0.76-1.46 Vitamin B12 & Folate 02/04/2020 [facility] Vitamin B12 Level 274 pg/mL Normal 4 Folate 10.3 NG/ML Normal 5 Laboratory test finding 02/04/2020 [facility] Rheumatoid Factor Quant < 10.0 IU/mL Normal <15.0 Vitamin E Level 02/04/2020 [facility] Vitamin E(Alpha Tocopherol) 16.1 mg/L Normal 7.0-25.1 Vitamin E(Gamma Tocopherol) 3.1 mg/L Normal 0.5-5.5 6 Laboratory test finding 02/04/2020 [facility] Vitamin B1 Level Whole Blood 184.9 nmol/L Normal 66.5-200.0 7 Vitamin B6,Pyridoxal Phosphate 4.6 ug/L Low 5.3-46.7 8 Antinuclear Antibodies 02/04/2020 [facility] Antinuclear Antibodies Direct Negative Normal Negative 9 1 REFERENCE RANGES: <=5.6% NORMAL 5.7-6.4% SUGGESTS IMPAIRED GLUCOSE META BOLISM/PREDIABETIC >= 6.5% ABNORMAL 2 RESULT IS LESS THAN 1.2, NO FURTHER TESTING INDICATED. INTERPRETATION This test is to screen those individuals that may have a circulating lupus anticoagulant. If the LA Screen test is normal, and/or the LA Confirm test is normal, the presence of a Lupus Anticoagulant (LA) is unlikely, but does not completely exclude LA-like activity. If both tests or the LA Confirm test are elevated, the specimen will be reflexed to a hexagonal phase phospholipid test through our reference laboratory for confirmation. A positive hexagonal phase phospholipid is indicative of LA. A negative hexagonal phase phospholipid test may indicate a coagulation factor deficiency or a specific inhibitor. 3 NO M-SPIKE(S)NOTED. 4 VITAMIN B12 NORMAL RANGE NORMAL 247 - 911 PG/ML INDETERMINATE 211 - 246 PG/ML DEFICIENT LESS THAN 211 PG/ML 5 FOLATE NORMAL RANGE NORMAL GREATER THAN 5.4 NG/ML INDETERMINATE 3.4-5.4 NG/ML DEFICIENT LESS THAN 3.4 NG/ML 6 Reference intervals for alph a and gamma-tocopherol determined from National Health and Nutrition Examination Survey, 6336-7305. Individuals with alpha-tocopherol levels less than 5.0 mg/L are considered vitamin E deficient. 7 Specimen Comment: Test(s) 07 0141-Vitamin E(Alpha Tocopherol); 437426- Specimen Comment: Vitamin E(Gamma Tocopherol); 928430-Gmtczys B6; 499632- Specimen Comment: Vit. B1, Whole Blood Specimen Comment: was developed and its performance characteristics Specimen Comment: determined by [facility]. It has not been cleared or approved Specimen Comment: by the Food and Drug Administration. 8 Specimen Comment: Test(s) 07 0141-Vitamin E(Alpha Tocopherol); 733412- Specimen Comment: Vitamin E(Gamma Tocopherol); 167714-Stfjjqe B6; 182874- Specimen Comment: Vit. B1, Whole Blood Specimen Comment: was developed and its performance characteristics Specimen Comment: determined by [facility]. It has not been cleared or approved Specimen Comment: by the Food and Drug Administration. 9 Performed at: - [facility] [id number] Dairy Store Manager: Anastacia Hernandez MD, Phone: [phone] Performed at: - [facility] [id number] Dairy Store Manager: Alisa Merritt MD, Phone: [phone] Procedures Date Code Description Status 02/13/2020 78596 MRI Spine Lumbar W/O Contrast Co mpleted 02/13/2020 91241 MRI Spine Lumbar W/O Contrast Co mpleted 02/13/2020 02849 MRI Spine Cervical W/O Contrast Completed 02/13/2020 20044 MRI Spine Cervical W/O Contrast Completed 02/11/2020 51933 Nerve Conduction 13+ Studies Com pleted 02/11/2020 94060 Needle Electromyography Complete , Five Or More Muscles Studied Completed 02/11/2020 24637 Needle Electromyography Complete , Five Or More Muscles Studied Completed 02/07/2020 71021 Nerve Conduction 13+ Studies Com pleted 02/07/2020 75315 Needle Electromyogra phy Non Extremity Done With Nerve Conduction Completed 02/07/2020 01412 Needle Electromyography Complete , Five Or More Muscles Studied Completed 02/07/2020 40161 Needle Electromyography Complete , Five Or More Muscles Studied Completed Medical Devices Description No Information Available Encounters Type Date Location Provider Dx Diagnosis Office Visit 03/18/2020 10:15a Main office - Emeka Gray M.D. M47.892 Other spondylosis, cervical region M54.5 Low back pain M47.896 Other spondylosis, lumbar re gion M54.2 Cervicalgia Office Visit 02/04/2020 12:15p Main office - Preethi Bustamante G56.01 Carpal tunnel syndrome, right upper limb M54.12 Radiculopathy, cervical bob on M54.5 Low back pain M54.16 Radiculopathy, lumbar region M54.2 Cervicalgia Assessments Date Code Description Provider 03/18/2020 M47.892 Other spondylosis, cervical bob on Darien Isaac, M.D. 03/18/2020 M54.5 Low back pain Draien Isaac, M.D . 03/18/2020 M47.896 Other spondylosis, lumbar region Darien Isaac, M.D. 03/18/2020 M54.2 Cervicalgia Darien Isaac, M.D . 02/13/2020 M54.2 Cervicalgia Darien Isaac, M.D . 02/13/2020 M54.2 Cervicalgia MRI 02/13/2020 M54.5 Low back pain Darien Isaac, M.D . 02/13/2020 M54.5 Low back pain MRI 02/11/2020 M54.5 Low back pain Darien Isaac, M.D . 02/11/2020 M54.16 Radiculopathy, lumbar region Abd ul Isaac, M.D. 02/11/2020 R20.2 Paresthesia of skin Darien Isaac, M.D. 02/11/2020 G60.9 Hereditary and idiopathic neurop athy, unspecified Darien Isaac, M.D. 02/07/2020 G56.03 Carpal tunnel syndrome, bilatera l upper limbs Darien Isaac, M.D. 02/07/2020 M54.2 Cervicalgia Darien Isaac, M.D . 02/07/2020 R20.2 Paresthesia of skin Darien Isaac, M.D. 02/07/2020 M25.519 Pain in unspecified shoulder Abd ul Isaac, M.D. 02/07/2020 G56.01 Carpal tunnel syndrome, right up per limb Darien Isaac, M.D. 02/07/2020 G56.02 Carpal tunnel syndrome, left upp er limb Darien Isaac, M.D. 02/04/2020 G56.01 Carpal tunnel syndrome, right up per limb Darien Isaac, M.D. 02/04/2020 M54.12 Radiculopathy, cervical region A bdul Isaac, M.D. 02/04/2020 M54.5 Low back pain Darien Isaac, M.D . 02/04/2020 M54.16 Radiculopathy, lumbar region Abd ul Isaac, M.D. 02/04/2020 M54.2 Cervicalgia Darien Isaac, M.D . Plan of Treatment Future Appointment(s):* 05/19/2020 12:15 pm - Darien Gray M.D. at Main office [facility] Functional Status Description No Information Available Mental Status Description No Information Available Referrals Refer to Dr Reason for Referral Status Appt Date Darien Gray M.D. Created [facility] [address] [place] [address] [phone] Darien Gray M.D. Created [facility] [address] [place] [address] [phone]
--- OUTSIDE RECORDS SUMMARY | 2020-04-18 07:17 | CCD ---
Author Organization Unknown Address [address] [place] [address] Phone [phone] Care Team Providers Care Direct Sales Professional Name Role Phone BRETT MANRIQUEZ MD 4 [phone] Allergies Code Code System Name Reaction Severity [...] Results Lab Results None recorded. Past Encounters 04/01/2020 Cervical Spondylosis without Myelopathy; Lumbosacral Spondylosis without Myelopathy; Cervical Radiculopathy; Displacement of Cervical Intervertebral Disc without Myelopathy; Degeneration of Cervical Intervertebral Disc; Myofascial Pain; Inflammation of Sacroiliac Joint; Lumbar Radiculopathy; Degeneration of Lumbar Intervertebral Disc; Degeneration of Lumbosacral Intervertebral Disc; Displacement of Lumbar Intervertebral Disc without Myelopathy; Intervertebral Disc Disorder; Spondylosis without Myelopathy Cathryn Villalobos SCHOOL OFFICE ASSISTANT: [id number] [facility] [address], [place] [address], Ph. 03/04/2020 Low Back Pain; Cervical Spondylosis without Myelopathy; Lumbosacral Spondylosis without Myelopathy; Cervical Radiculopathy; Displacement of Cervical Intervertebral Disc without Myelopathy; Degeneration of Cervical Intervertebral Disc; Myofascial Pain Cathryn Villalobos SCHOOL OFFICE ASSISTANT: [address], [place] [address], Ph. 02/06/2020 Low Back Pain; Cervical Spondylosis without Myelopathy; Lumbosacral Spondylosis without Myelopathy; Cervical Radiculopathy; Displacement of Cervical Intervertebral Disc without Myelopathy; Degeneration of Cervical Intervertebral Disc; Myofascial Pain Cathryn Villalobos, SCHOOL OFFICE ASSISTANT: [address] [facility] [address], [place] [address], Ph. Social History Tobacco Smoking Status Light [...]
--- OUTSIDE RECORDS SUMMARY | 2020-04-18 07:17 | CCD | Continuity of Care Document ---
Author Author Jeison GRAY M.D. Organization Unknown Address [address] [place] [address] Phone [phone] Care Team Providers Care Production Service Manager Name Role Phone James Cornejo M.D. AUTM [phone] Problems Active Problems Provider Date Headache Melissa [...] lb BMI (Body Mass Index) 29.7 kg/m2 [place] Body Weight 142 lb Results Test Acquired Date Facility Test Result H/L Range Note Laboratory test finding 02/04/2020 [facility] Erythrocyte Sedimentation Rate 4 mm/hr Normal 0-20 Hemoglobin A1c 02/04/2020 [facility] Hemoglobin A1c 5.3 % Normal 1 Estimated Average Glucose 105 mg/dL Normal 60-110 Lupus Type Anticoagulant Scree 02/04/2020 [facility] PTT Lupus Type Anticoag Screen 1.0 Normal 0-1.2 2 Serum Protein Electrophoresis 02/04/2020 [facility] Albumin % 59.6 % Normal 55.8-66.1 Dfwdi-2-Astjkngs % 4.9 % Normal 2.9-4.9 Fhgrl-0-Ujzkdbtnh % 10.6 % Normal 7.1-11.8 Dpei-5-Bxojzqizv % 7.1 % Normal 4.7-7.2 Vqgh-1-Uwzbfufil % 6.1 % Normal 3.2-6.5 Gamma Globulin % 11.7 % Normal 11.1-18.8 Albumin 4.47 GM/DL Normal 3.29-5.55 Kvota-4-Lmrahssiw 0.37 GM/DL Normal 0.17-0.41 Ofjxq-2-Ybfohbium 0.80 GM/DL Normal 0.42-0.99 Hbey-5-Mpzbwcach 0.53 GM/DL Normal 0.28-0.60 Nyzt-5-Mqqzaykab 0.46 GM/DL Normal 0.19-0.55 Gamma Globulins 0.88 GM/DL Normal 0.65-1.58 Total Protein 7.5 GM/DL Normal 6.4-8.2 Spep Interpretation SEE COMMENT Normal 3 Spep Pathologist Review REV'D BY Francisca GUTIERREZ Normal Laboratory test finding 02/04/2020 [facility] Thyroid Stimulating Hormone 0.856 uIU/ML Normal 0.358-3.740 Free T4 0.92 ng/dL Normal 0.76-1.46 Vitamin B12 & Folate 02/04/2020 [facility] Vitamin B12 Level 274 pg/mL Normal 4 Folate 10.3 NG/ML Normal 5 Laboratory test finding 02/04/2020 [facility] Rheumatoid Factor Quant < 10.0 IU/mL Normal <15.0 Vitamin E Level 02/04/2020 [facility] Vitamin E(Alpha Tocopherol) 16.1 mg/L Normal 7.0-25.1 Vitamin E(Gamma Tocopherol) 3.1 mg/L Normal 0.5-5.5 6 Laboratory test finding 02/04/2020 [facility] Vitamin B1 Level Whole Blood 184.9 nmol/L Normal 66.5-200.0 7 Vitamin B6,Pyridoxal Phosphate 4.6 ug/L Low 5.3-46.7 8 Antinuclear Antibodies 02/04/2020 [facility] Antinuclear Antibodies Direct Negative Normal Negative 9 [...] from National Health and Nutrition Examination Survey, 0025-5174. Individuals with alpha-tocopherol levels less than 5.0 mg/L are considered vitamin E deficient. 7 Specimen Comment: Test(s) 07 0141-Vitamin E(Alpha Tocopherol); 654053- Specimen Comment: Vitamin E(Gamma Tocopherol); 531233-Otknruk B6; 118702- Specimen Comment: Vit. B1, Whole Blood Specimen Comment: was developed and its performance characteristics Specimen Comment: determined by [facility]. It has not been cleared or approved Specimen Comment: by the Food and Drug Administration. 8 Specimen Comment: Test(s) 07 0141-Vitamin E(Alpha Tocopherol); 455507- Specimen Comment: Vitamin E(Gamma Tocopherol); 808509-Cxyfwfs B6; 638670- Specimen Comment: Vit. B1, Whole Blood Specimen Comment: was developed and its performance characteristics Specimen Comment: determined by [facility]. It has not been cleared or approved Specimen Comment: by the Food and Drug Administration. 9 Performed at: - [facility] [id number] Algebraist: Anastacia Hernandez MD, Phone: [phone] Performed at: - [facility] [id number] Algebraist: Alisa Merritt MD, Phone: [phone] Procedures Date Code Description Status 02/13/2020 62759 MRI Spine Lumbar W/O Contrast Co mpleted 02/13/2020 27566 MRI Spine Lumbar W/O Contrast Co mpleted 02/13/2020 05792 MRI Spine Cervical W/O Contrast Completed 02/13/2020 46752 MRI Spine Cervical W/O Contrast Completed 02/11/2020 53607 Nerve Conduction 13+ Studies Com pleted 02/11/2020 27921 Needle Electromyography Complete , Five Or More Muscles Studied Completed 02/11/2020 88465 Needle Electromyography Complete , Five Or More Muscles Studied Completed 02/07/2020 88019 Nerve Conduction 13+ Studies Com pleted 02/07/2020 23999 Needle Electromyogra phy Non Extremity Done With Nerve Conduction Completed 02/07/2020 20767 Needle Electromyography Complete , Five Or More Muscles Studied Completed 02/07/2020 15724 Needle Electromyography Complete , Five Or More Muscles Studied Completed Medical Devices Description No Information Available Encounters Type Date Location Provider Dx Diagnosis Office Visit 02/04/2020 12:15p Main office - Preethi Bustamante G56.01 Carpal tunnel syndrome, right upper limb M54.12 Radiculopathy, cervical bob on M54.5 Low back pain M54.16 Radiculopathy, lumbar region M54.2 Cervicalgia Assessments Date Code Description Provider 02/13/2020 M54.2 Cervicalgia Darien Isaac, M.D . [...] syndrome, right up per limb Darien Isaac, M.DShayy 02/07/2020 G56.02 Carpal tunnel syndrome, left upp er limb Darien Isaac, M.DShayy 02/04/2020 G56.01 Carpal tunnel syndrome, right up per limb Darien Isaac, M.DShayy 02/04/2020 M54.12 Radiculopathy, cervical region A bdrubens Gray M.D. 02/04/2020 M54.5 Low back pain Darien IsaacCory delunaD Shayy 02/04/2020 M54.16 Radiculopathy, lumbar region Abd ul Isaac, M.DShayy 02/04/2020 M54.2 Cervicalgia Marquis Aly Plan of Treatment Future Appointment(s):* 05/19/2020 12:15 pm - Darien Gray M.D. at Main office [facility] Functional Status Description No Information Available Mental Status Description No Information Available Referrals Refer to Reason for Referral Status Appt Date Darien Gray M.D. Created [facility] [address] [place] [address] [phone] Darien Gray M.D. Created [facility] [address] [place] [address] [phone]
--- OUTSIDE RECORDS SUMMARY | 2020-04-18 07:17 | CCD | Continuity of Care Document ---
Author Author Jeison WASHINGTON Organization Unknown Address [address] [place] [address] Phone [phone] Care Team Providers Care Cable Testers Helper Name Role Phone James Cornejo M.D. AUTM [phone] Problems Active Problems Provider Date Headache Melissa [...] lb BMI (Body Mass Index) 29.7 kg/m2 [place] Body Weight 142 lb Results Test Acquired Date Facility Test Result H/L Range Note Laboratory test finding 02/04/2020 [facility] Erythrocyte Sedimentation Rate 4 mm/hr Normal 0-20 Hemoglobin A1c 02/04/2020 [facility] Hemoglobin A1c 5.3 % Normal 1 Estimated Average Glucose 105 mg/dL Normal 60-110 Lupus Type Anticoagulant Scree 02/04/2020 [facility] PTT Lupus Type Anticoag Screen 1.0 Normal 0-1.2 2 Serum Protein Electrophoresis 02/04/2020 [facility] Albumin % 59.6 % Normal 55.8-66.1 Robjf-2-Nvjibvna % 4.9 % Normal 2.9-4.9 Qtnao-8-Pmwskklth % 10.6 % Normal 7.1-11.8 Kxej-8-Xgqlrfeed % 7.1 % Normal 4.7-7.2 Tbwq-5-Xjgcrkzdv % 6.1 % Normal 3.2-6.5 Gamma Globulin % 11.7 % Normal 11.1-18.8 Albumin 4.47 GM/DL Normal 3.29-5.55 Pefgi-7-Blnvhceor 0.37 GM/DL Normal 0.17-0.41 Ygmxz-4-Dgtecvbfn 0.80 GM/DL Normal 0.42-0.99 Drsj-4-Cznoxzkuv 0.53 GM/DL Normal 0.28-0.60 Pmlq-4-Hyslacnsu 0.46 GM/DL Normal 0.19-0.55 Gamma Globulins 0.88 GM/DL Normal 0.65-1.58 Total Protein 7.5 GM/DL Normal 6.4-8.2 Spep Interpretation SEE COMMENT Normal 3 Spep Pathologist Review REV'D BY Francisca GUTIERREZ Normal Laboratory test finding 02/04/2020 [facility] Thyroid Stimulating Hormone 0.856 uIU/ML Normal 0.358-3.740 Free T4 0.92 ng/dL Normal 0.76-1.46 Vitamin B12 & Folate 02/04/2020 [facility] Vitamin B12 Level 274 pg/mL Normal 4 Folate 10.3 NG/ML Normal 5 Laboratory test finding 02/04/2020 [facility] Rheumatoid Factor Quant < 10.0 IU/mL Normal <15.0 1 REFERENCE RANGES: <=5.6% NORMAL 5.7-6.4% SUGGESTS [...] 3.4-5.4 NG/ML DEFICIENT LESS THAN 3.4 NG/ML Procedures Date Code Description Status 02/13/2020 52923 MRI Spine Lumbar W/O Contrast Co mpleted 02/13/2020 40542 MRI Spine Cervical W/O Contrast Completed 02/11/2020 01133 Nerve Conduction 13+ Studies Com pleted 02/11/2020 68132 Needle Electromyography Complete , Five Or More Muscles Studied Completed 02/11/2020 44215 Needle Electromyography Complete , Five Or More Muscles Studied Completed 02/07/2020 66945 Nerve Conduction 13+ Studies Com pleted 02/07/2020 28498 Needle Electromyogra phy Non Extremity Done With Nerve Conduction Completed 02/07/2020 47653 Needle Electromyography Complete , Five Or More Muscles Studied Completed 02/07/2020 02252 Needle Electromyography Complete , Five Or More Muscles Studied Completed Medical Devices Description No Information Available Encounters Type Date Location Provider Dx Diagnosis Office Visit 02/04/2020 12:15p Main office - [facility] Preethi Aly G56.01 Carpal tunnel syndrome, right upper limb M54.12 Radiculopathy, cervical bob on M54.5 Low back pain M54.16 Radiculopathy, lumbar region M54.2 Cervicalgia Assessments Date Code Description Provider 02/13/2020 M54.2 Cervicalgia MRI 02/13/2020 M54.5 Low back pain MRI 02/11/2020 [...] Abd ul Isaac, M.D. 02/04/2020 M54.2 Cervicalgia Marquis Aly Plan of Treatment Future Appointment(s):* 03/18/2020 10:15 am - Darien Gray M.D. at Main office - [facility] Functional Status Description No Information Available Mental Status Description No Information Available Referrals Refer to Dr Reason for Referral Status Appt Date Darien Gray M.D. Created [facility] [address] [place], [place] [address] [phone]
--- OUTSIDE RECORDS SUMMARY | 2020-04-18 07:17 | CCD ---
Author Organization Unknown Address [address] [place] [address] Phone [phone] Care Team Providers Care Gis Specialist Name Role Phone ChantalJames Unavailable Unavailable Allergies Code Code System Name Reaction Severity Status Onset Penicillin Active 01/22/2019 Medications Name Status Start Date Stop Date ammonium lactate 12 % topical cream APPLY TO FEET DAILY Completed 02/15/2020 Chantix Starting Month Box 0.5 mg (11)-1 mg (42) tablets in dose pack USE DIRECTED Completed 02/15/2020 clindamycin HCl 150 mg capsule TAKE TWO CAPSULES BY MOUTH THREE TIMES A DAY FOR 5 DAYS Completed 02/15/2020 cyclobenzaprine 10 mg tablet TAKE ONE TABLET BY MOUTH THREE TIMES A DAY NEEDED FOR SPASM Completed 02/15/2020 duloxetine 30 mg capsule,delayed release TAKE ONE CAPSULE BY MOUTH EVERY DAY Completed duloxetine 60 mg capsule,delayed release TAKE ONE CAPSULE BY MOUTH EVERY DAY Completed gabapentin 400 mg capsule TAKE ONE CAPSULE BY MOUTH THREE TIMES A DAY NEEDED FOR NEUROPATHIC PAIN Completed 02/15/2020 gabapentin 800 mg tablet TAKE ONE TABLET BY MOUTH TWICE A DAY Active No t available hydrocortisone acetate 25 mg rectal supp ository INSERT ONE SUPPOSITORY RECTALLY AT BEDTIME NEEDED FOR HEMORRHOIDS Completed 02/15/2020 ketorolac 10 mg tablet TAKE ONE TABLET BY MOUTH EVERY 8 HOURS NEEDED FOR PAIN MAXIMUM DAILY DOSE THREE TABLETS Completed 02/15/2020 methocarbamol 750 mg tablet TAKE ONE TABLET BY MOUTH EVERY DAY NEEDED Completed 02/15/2020 iwuggpmt-uyfiyntwv-fxznqchpk 3.5 mg/mL-1 0,000 unit/mL-1 % ear solution APPLY ONE DROP TO BASE OF NAIL AFTER BETADINE SOAKS DIRECTED Completed 02/15/2020 peg-electrolyte solution 420 gram oral s olution DIRECTED Completed 02/15/2020 pregabalin 75 mg capsule TAKE 1 CAPSULE BY MOUTH THREE TIMES DAILY NEEDED FOR PAIN Completed 02/15/2020 tizanidine 4 mg tablet TAKE ONE TABLET BY MOUTH THREE TIMES A DAY NEEDED Completed 02/15/2020 tramadol 50 mg tablet Completed 02/15/2020 Problems Name Status Onset Date Source Low Back Pain Active 01/22/2019 History Finding of Neck Region Active 01/22/2019 History Pain of Left Shoulder Joint Active 01/30/2019 Hist ory Pain of Right Shoulder Joint Active 01/30/2019 His tory Tobacco Use and Exposure - Finding Active 02/19/2019 History Hand Pain Active 03/30/2019 History Polyneuropathy Active 05/05/[address] Concept Active 05/05/2019 History Nicotine Dependence Active 05/30/2019 History Elevated Blood-pressure Reading without Diagnosis of Hyperte nsion Active 05/30/2019 History Finding by Site Active 05/30/2019 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 Past Encounters 02/15/2020 James Cornejo MD: [address] [place] [phone], Ph. Social History Tobacco Smoking Status Current Every Day Smoker Vaccine List None recorded. Plan of Care Reminders Provider Appointments None recorded. Lab None recorded. Referral None recorded. Procedures None recorded. Surgeries None recorded. Imaging None recorded. Vitals 02/15/2020 09:40AM ESTABLISHED [id number] Height Weight BMI Blood Pressure 66 in 192 lbs 6 oz 31 kg/m2 146/ 11/27/2019 Height Weight Blood Pressure 66 in 189 lbs 2.08 oz 134/77 mm[Hg] 10/26/2019 Height Weight Blood Pressure 66 in 181 lbs 123/83 mm[Hg] 09/28/2019 Height Weight Blood Pressure 66 in 181 lbs 125/73 mm[Hg] 08/09/2019 Height Weight Blood Pressure 66 in 188 lbs 3.04 oz 122/86 mm[Hg] 08/02/2019 Height Weight Blood Pressure 66 in 184 lbs 109/75 mm[Hg] 06/27/2019 Height Weight Blood Pressure 66 in 185 lbs 4 oz 121/85 mm[Hg] 05/30/2019 Height Weight Blood Pressure 66 in 185 lbs 4 oz 129/78 mm[Hg] 05/05/2019 Height Weight Blood Pressure 66 in 183 lbs 9.6 oz 114/76 mm[Hg] 03/30/2019 Height Weight Blood Pressure 66 in 185 lbs 3.2 oz 164/96 mm[Hg] 01/30/2019 Height Weight Blood Pressure 66 in 186 lbs 11.2 oz 133/73 mm[Hg] 01/22/2019 Height Weight Blood Pressure 66 in 185 lbs 144/76 mm[Hg]
--- OUTSIDE RECORDS SUMMARY | 2020-04-18 07:17 | CCD | Continuity of Care Document ---
Author Author Jeison WASHINGTON Organization Unknown Address [address] [place] [address] Phone [phone] Care Team Providers Care Portable Router Operator Name Role Phone James Cornejo M.D. AUTM [phone] Problems Active Problems Provider Date Headache Melissa [...] lb BMI (Body Mass Index) 29.7 kg/m2 [place] Body Weight 142 lb Results Test Acquired Date Facility Test Result H/L Range Note Laboratory test finding 02/04/2020 [facility] Erythrocyte Sedimentation Rate 4 mm/hr Normal 0-20 Hemoglobin A1c 02/04/2020 [facility] Hemoglobin A1c 5.3 % Normal 1 Estimated Average Glucose 105 mg/dL Normal 60-110 Lupus Type Anticoagulant Scree 02/04/2020 [facility] PTT Lupus Type Anticoag Screen 1.0 Normal 0-1.2 2 Serum Protein Electrophoresis 02/04/2020 [facility] Albumin % 59.6 % Normal 55.8-66.1 Enbox-9-Xwxgabrn % 4.9 % Normal 2.9-4.9 Wcefh-7-Sxrxuuvgw % 10.6 % Normal 7.1-11.8 Izyi-2-Iulecayfc % 7.1 % Normal 4.7-7.2 Pknf-0-Bcfwndaye % 6.1 % Normal 3.2-6.5 Gamma Globulin % 11.7 % Normal 11.1-18.8 Albumin 4.47 GM/DL Normal 3.29-5.55 Lgynu-4-Pmutnnznd 0.37 GM/DL Normal 0.17-0.41 Cnfwi-1-Cozcqomwc 0.80 GM/DL Normal 0.42-0.99 Zxop-4-Jnzzqqxvk 0.53 GM/DL Normal 0.28-0.60 Nidb-8-Mrboukhhf 0.46 GM/DL Normal 0.19-0.55 Gamma Globulins 0.88 GM/DL Normal 0.65-1.58 Total Protein 7.5 GM/DL Normal 6.4-8.2 Spep Interpretation SEE COMMENT Normal 3 Spep Pathologist Review REV'D BY Francisca GUTIERREZ Normal Laboratory test finding 02/04/2020 [facility] Thyroid Stimulating Hormone 0.856 uIU/ML Normal 0.358-3.740 Free T4 0.92 ng/dL Normal 0.76-1.46 Vitamin B12 & Folate 02/04/2020 [facility] Vitamin B12 Level 274 pg/mL Normal 4 Folate 10.3 NG/ML Normal 5 Laboratory test finding 02/04/2020 [facility] Rheumatoid Factor Quant < 10.0 IU/mL Normal [...] NG/ML Procedures Date Code Description Status 02/13/2020 32832 MRI Spine Lumbar W/O Contrast Co mpleted 02/13/2020 03616 MRI Spine Cervical W/O Contrast Completed 02/11/2020 69580 Nerve Conduction 13+ Studies Com pleted 02/11/2020 66825 Needle Electromyography Complete , Five Or More Muscles Studied Completed 02/11/2020 63848 Needle Electromyography Complete , Five Or More Muscles Studied Completed 02/07/2020 28171 Nerve Conduction 13+ Studies Com pleted 02/07/2020 77788 Needle Electromyogra phy Non Extremity Done With Nerve Conduction Completed 02/07/2020 93652 Needle Electromyography Complete , Five Or More Muscles Studied Completed 02/07/2020 35853 Needle Electromyography Complete , Five Or More Muscles Studied Completed Medical Devices Description No Information Available Encounters Type Date Location Provider Dx Diagnosis Office Visit 02/04/2020 12:15p Main office - [place] Preethi Aly G56.01 Carpal tunnel syndrome, right [...] Darien Gray M.D. at Main office - [place] Functional Status Description No Information Available Mental Status Description No Information Available Referrals Refer to Dr Reason for Referral Status Appt Date Darien Gray M.D. Created [facility] [address] [place], [place] [id number] [phone]
--- OUTSIDE RECORDS SUMMARY | 2020-04-18 07:17 | CCD | Continuity of Care Document ---
Author Author Jeison WASHINGTON Organization Unknown Address [address] [place] [address] Phone [phone] Care Team Providers Care Director Of Development Name Role Phone James Cornejo M.D. AUTM [phone] Problems Active Problems Provider Date Headache Melissa [...] lb BMI (Body Mass Index) 29.7 kg/m2 [place] Body Weight 142 lb Results Test Acquired Date Facility Test Result H/L Range Note Laboratory test finding 02/04/2020 [facility] Erythrocyte Sedimentation Rate 4 mm/hr Normal 0-20 Hemoglobin A1c 02/04/2020 [facility] Hemoglobin A1c 5.3 % Normal 1 Estimated Average Glucose 105 mg/dL Normal 60-110 Lupus Type Anticoagulant Scree 02/04/2020 [facility] PTT Lupus Type Anticoag Screen 1.0 Normal 0-1.2 2 Serum Protein Electrophoresis 02/04/2020 [facility] Albumin % 59.6 % Normal 55.8-66.1 Iwgrj-1-Hplqyyqr % 4.9 % Normal 2.9-4.9 Nvzht-5-Unkvawoxh % 10.6 % Normal 7.1-11.8 Tysy-6-Jdyxctumy % 7.1 % Normal 4.7-7.2 Aulo-0-Evafqyfzl % 6.1 % Normal 3.2-6.5 Gamma Globulin % 11.7 % Normal 11.1-18.8 Albumin 4.47 GM/DL Normal 3.29-5.55 Tzmip-5-Tdfsvvnhz 0.37 GM/DL Normal 0.17-0.41 Ndmlr-5-Pdibqvdrl 0.80 GM/DL Normal 0.42-0.99 Ypik-3-Nganhpojb 0.53 GM/DL Normal 0.28-0.60 Idwo-9-Kafkovcni 0.46 GM/DL Normal 0.19-0.55 Gamma Globulins 0.88 GM/DL Normal 0.65-1.58 Total Protein 7.5 GM/DL Normal 6.4-8.2 Spep Interpretation SEE COMMENT Normal 3 Spep Pathologist Review REV'D BY Francisca GUTIERREZ Normal Laboratory test finding 02/04/2020 [facility] Thyroid Stimulating Hormone 0.856 uIU/ML Normal 0.358-3.740 Free T4 0.92 ng/dL Normal 0.76-1.46 Vitamin B12 & Folate 02/04/2020 [facility] Vitamin B12 Level 274 pg/mL Normal 4 Folate 10.3 NG/ML Normal 5 Laboratory test finding 02/04/2020 [facility] Rheumatoid Factor Quant < 10.0 IU/mL [...] NG/ML Procedures Date Code Description Status 02/13/2020 51228 MRI Spine Lumbar W/O Contrast Co mpleted 02/13/2020 80720 MRI Spine Lumbar W/O Contrast Co mpleted 02/13/2020 36957 MRI Spine Cervical W/O Contrast Completed 02/13/2020 09086 MRI Spine Cervical W/O Contrast Completed 02/11/2020 65368 Nerve Conduction 13+ Studies Com pleted 02/11/2020 04363 Needle Electromyography Complete , Five Or More Muscles Studied Completed 02/11/2020 85027 Needle Electromyography Complete , Five Or More Muscles Studied Completed 02/07/2020 59122 Nerve Conduction 13+ Studies Com pleted 02/07/2020 40056 Needle Electromyogra phy Non Extremity Done With Nerve Conduction Completed 02/07/2020 01084 Needle Electromyography Complete , Five Or More Muscles Studied Completed 02/07/2020 17328 Needle Electromyography Complete , Five Or More Muscles Studied Completed Medical Devices Description No Information Available Encounters Type Date Location Provider Dx Diagnosis Office Visit 02/04/2020 12:15p Main office - [place] Preethi Aly G56.01 Carpal tunnel syndrome, right [...] and idiopathic neurop athy, unspecified Darien Isaac, M.DShayy 02/07/2020 G56.03 Carpal tunnel syndrome, bilatera l upper limbs Darine Isaac, M.DShayy 02/07/2020 M54.2 Cervicalgia Darien Isaac, M.D . [...] ul Isaac, M.D. 02/04/2020 M54.2 Cervicalgia Darien IsaacCory delunaD Shayy Plan of Treatment Future Appointment(s):* 03/18/2020 10:15 am - Darien Gray M.D. at Main office - [place] Functional Status Description No Information Available Mental Status Description No Information Available Referrals Refer to Reason for Referral Status Appt Date Darien Gray M.D. Created [facility] [address] [place] [address] [phone] Darien Gray M.D. Created [facility] [address] [place] [address] [phone]
--- OUTSIDE RECORDS SUMMARY | 2020-04-18 07:17 | CCD ---
Author Organization Unknown Address [address] [place] [address] Phone [phone] Care Team Providers Care Thread Trimmer Name Role Phone BRETT MARNIQUEZ MD 4 [phone] Allergies Code Code System Name Reaction Severity [...] Results Lab Results None recorded. Past Encounters 03/04/2020 Low Back Pain; Cervical Spondylosis without Myelopathy; Lumbosacral Spondylosis without Myelopathy; Cervical Radiculopathy; Displacement of Cervical Intervertebral Disc without Myelopathy; Degeneration of Cervical Intervertebral Disc; Myofascial Pain Cathryn Villalobos REED REPAIRER: [id number] [address], [place] [address], Ph. 02/06/2020 Low Back Pain; Cervical Spondylosis without Myelopathy; Lumbosacral Spondylosis without Myelopathy; Cervical Radiculopathy; Displacement of Cervical Intervertebral Disc without Myelopathy; Degeneration of Cervical Intervertebral Disc; Myofascial Pain Cathryn Villalobos REED REPAIRER: [id number] [facility] [address], [place] [phone], Ph. Social History None recorded. Vaccine List None recorded. Plan of Care Reminders Provider Appointments None recorded. Lab None recorded. Referral None recorded. Procedures None recorded. Surgeries None recorded. Imaging None recorded. Vitals 03/04/2020 02:30PM FOLLOW-UP Blood Pressure 135/83 mm[Hg] 02/06/2020 03:45PM Extended Follow Up Visit Blood Pressure 164/94 mm[Hg] 11/24/2016 Height Weight BMI Blood Pressure 5 ft 6 in 190 lbs 30.78 kg/m2 130/84 mm[Hg]
--- OUTSIDE RECORDS SUMMARY | 2020-04-18 07:17 | CCD | Continuity of Care Document ---
Author Author Jeison THOMPSON A-C Organization Unknown Address [address] [place] [address], [address] [place] [address] Phone [phone] Care Team Providers Care Linoleum Floor Installer Name Role Phone James Cornejo M.D. AUTM [phone] Problems Description No Active Problems Social History Type Date Description Comments Sex Unknown ETOH Use 3 A Month Tobacco Use Start: Unknown Smokes 1/2 Pack A Day Tobacco Use Start: Unknown Report Cessation Counseling Was Provided Allergies, Adverse Reactions, Alerts Active Allergies Reaction Severity Comments Date Penicillin V 01/31/2020 Medications Active Medications SIG Qnty Indications Ordering Provide r Date Golytely 236gm Solution Rec take per doctor's instructions for bowel prep. 4000ml Z12.11 Burak zepeda MD 01/31/2020 Milk Of Magnesia 1200mg/15ML Suspe nsion take 45 milliliters by mouth as directed on colonoscopy prep sheet. Z12.11 Burak Rod MD 01/31/2020 Ketorolac Tromethamine 10mg Tablet s Q8H prn Unknown Hydrocortisone Acetate 25mg Suppos itory 1 QHS prn Unknown Cyclobenzaprine HCL 10mg Tablets 1 tab by mouth three times a day as needed Unknown Methocarbamol 750mg Tablets 1 by mouth every day prn Unknown Gabapentin 800mg Tablets bid Unknown Immunizations Description No Information Available Vital Signs Date Vital Result Comment 01/31/2020 1:22pm BP Systolic 142 mmHg BP Diastolic 88 mmHg Height 66 inches 5'6" Weight 195.00 lb BMI (Body Mass Index) 31.5 kg/m2 [place] Body Weight 142 lb Weight 88.452 kg BSA (Body Surface Area) 1.98 m2 Results Description No Information Available Procedures Description No Information Available Medical Devices Description No Information Available Encounters Description No Information Available Assessments Date Code Description Provider 01/31/2020 Z12.11 Encounter for screening for gia gnant neoplasm of colon Saida A MARINA Thompson 01/31/2020 Z86.010 Personal history of colonic poly ps Saida A MARINA Thompson 01/31/2020 Z80.0 Family history of malignant neop lasm of digestive organs Saida A MARINA Thompson 01/31/2020 R12 Heartburn Saida Odell MARINA davies Plan of Treatment Future Appointment(s):* 04/18/2020 4:00 am - Burak Rod MD at [facility] 01/31/2020 - Saida Amador MARINA Thompson* Z12.11 Encounter for screening for malignant neoplasm of colon * Z86.010 Personal history of colonic polyps * Z80.0 Family history of malignant neoplasm of digestive organs * R12 Heartburn * * New Medication:* Golytely 236 gm * Milk Of Magnesia 1200 mg/15ML * New Orders:* Colonoscopy, Ordered: 01/31/20 * Comments:* Will arrange for colonoscopy. Reviewed risks and benefits of the procedure, as well as other options, with the patient. Bowel prep procedure was discussed with patient, as well as risks and side effects associated with the bowel prep. Patient verbalized understanding of all of the above and is in agreement to proceed. Patient will seek medical attention for any acute changes. Will monitor. * Follow up:* As scheduled, sooner if needed. Functional Status Description No Information Available Mental Status Description No Information Available Referrals Refer to Reason for Referral Status Appt Date Burak Rod MD [facility]OR[facility] SCREENING Scheduled 1 [facility], Gastroenterology [address], [address] [place] [address] [phone]
--- OUTSIDE RECORDS SUMMARY | 2020-04-18 07:18 | CCD | Continuity of Care Document ---
Author Author Jeison GRAY M.D. Organization Unknown Address [address] [place] [address] Phone [phone] Care Team Providers Care Assistant Fitness Manager Name Role Phone James Cornejo M.D. AUTM [phone] Problems Active Problems Provider Date Headache Melissa [...] lb BMI (Body Mass Index) 29.7 kg/m2 [place] Body Weight 142 lb Results Description No Information Available Procedures Description No Information Available Medical Devices Description No Information Available Encounters Description No Information Available Assessments Description No Information Available Plan of Treatment Future Appointment(s):* 03/18/2020 10:15 am - Darien Gray M.D. at [facility] * 02/11/2020 9:00 am - Darien Gray M.D. at [facility] * 02/07/2020 9:00 am - Darien Gray M.D. at [facility] Functional Status Description No Information Available Mental Status Description No Information Available Referrals Description No Information Available
--- OUTSIDE RECORDS SUMMARY | 2020-04-18 07:18 | CCD | Continuity of Care Document ---
Author Author Jeison THOMPSON A-C Organization Unknown Address [address] [place] [address], [address] [place] [address] Phone [phone] Care Team Providers Care Real Estate Sales Manager Name Role Phone James Cornejo M.D. AUTM [phone] Problems Description No Active Problems Social History [...] lb BMI (Body Mass Index) 31.5 kg/m2 [place] Body Weight 142 lb Weight 88.452 kg Results Description No Information Available Procedures Description No Information Available Medical Devices Description No Information Available Encounters Description No Information Available Assessments Date Code Description Provider 01/31/2020 Z12.11 Encounter for screening for gia gnant neoplasm of colon Saida ThompsonMARINA 01/31/2020 Z86.010 Personal history of colonic poly ps Saida ThompsonMARINA 01/31/2020 Z80.0 Family history of malignant neop lasm of digestive organs Saida MajorMARINA tran 01/31/2020 R12 Heartburn Saida velázquezMARINA tran Plan of Treatment 01/31/2020 - Saida ThompsonMARINA* Z12.11 Encounter for screening for malignant neoplasm [...] Rod MD COLORECTAL CANCER SCREENING Scheduled 1 [facility], Gastroenterology [address] [place] [address], [place] [id number] [phone]
--- OUTSIDE RECORDS SUMMARY | 2020-04-18 07:18 | CCD | Continuity of Care Document ---
Author Author Jeison GRAY M.D. Organization Unknown Address [address] [place] [address] Phone [phone] Care Team Providers Care Painter And Decorator Apprentice Name Role Phone James Cornejo M.D. AUTM [phone] Problems Active Problems Provider Date Headache Melissa [...] lb BMI (Body Mass Index) 29.7 kg/m2 [place] Body Weight 142 lb Results Test Acquired Date Facility Test Result H/L Range Note Laboratory test finding 02/04/2020 [facility] Erythrocyte Sedimentation Rate 4 mm/hr Normal 0-20 Hemoglobin A1c 02/04/2020 [facility] Hemoglobin A1c 5.3 % Normal 1 Estimated Average Glucose 105 mg/dL Normal 60-110 Lupus Type Anticoagulant Scree 02/04/2020 [facility] PTT Lupus Type Anticoag Screen 1.0 Normal 0-1.2 2 Serum Protein Electrophoresis 02/04/2020 [facility] Albumin % 59.6 % Normal 55.8-66.1 Ppqxd-5-Koyfvbtu % 4.9 % Normal 2.9-4.9 Yuidg-0-Krqtyuehk % 10.6 % Normal 7.1-11.8 Uvxa-1-Gdrfiikkl % 7.1 % Normal 4.7-7.2 Utzc-9-Ejvsvrguw % 6.1 % Normal 3.2-6.5 Gamma Globulin % 11.7 % Normal 11.1-18.8 Albumin 4.47 GM/DL Normal 3.29-5.55 Cjptj-9-Cuklzmprj 0.37 GM/DL Normal 0.17-0.41 Tfovb-7-Ilhlfjcpp 0.80 GM/DL Normal 0.42-0.99 Wdhm-1-Rgfaelpev 0.53 GM/DL Normal 0.28-0.60 Kqjo-0-Gujhjjyso 0.46 GM/DL Normal 0.19-0.55 Gamma Globulins 0.88 GM/DL Normal 0.65-1.58 Total Protein 7.5 GM/DL Normal 6.4-8.2 Spep Interpretation SEE COMMENT Normal 3 Spep Pathologist Review REV'D BY Francisca GUTIERREZ Normal Laboratory test finding 02/04/2020 [facility] Thyroid Stimulating Hormone 0.856 uIU/ML Normal 0.358-3.740 Free T4 0.92 ng/dL Normal 0.76-1.46 Vitamin B12 & Folate 02/04/2020 [facility] Vitamin B12 Level 274 pg/mL Normal 4 Folate 10.3 NG/ML Normal 5 Laboratory test finding 02/04/2020 [facility] Rheumatoid Factor Quant < 10.0 IU/mL [...] 3.4 NG/ML Procedures Date Code Description Status 02/11/2020 56977 Nerve Conduction 13+ Studies Com pleted 02/11/2020 18947 Needle Electromyography Complete , Five Or More Muscles Studied Completed 02/11/2020 68327 Needle Electromyography Complete , Five Or More Muscles Studied Completed 02/07/2020 68204 Nerve Conduction 13+ Studies Com pleted 02/07/2020 86658 Needle Electromyogra phy Non Extremity Done With Nerve Conduction Completed 02/07/2020 34983 Needle Electromyography Complete , Five Or More Muscles Studied Completed 02/07/2020 15992 Needle Electromyography Complete , Five Or More Muscles Studied Completed Medical Devices Description No Information Available Encounters Type Date Location Provider Dx Diagnosis Office Visit 02/04/2020 12:15p Main office - [place] Darien Isaac, M .DShayy G56.01 Carpal tunnel syndrome, right upper limb M54.12 Radiculopathy, cervical bob on M54.5 Low back pain M54.16 Radiculopathy, lumbar region M54.2 Cervicalgia Assessments Date Code Description Provider 02/11/2020 M54.5 Low back pain Darien Isaac, [...] tunnel syndrome, right up per limb Darien Gray M.D. 02/04/2020 M54.12 Radiculopathy, cervical region A deandre Gray M.D. 02/04/2020 M54.5 Low back pain Marquis Aly 02/04/2020 M54.16 Radiculopathy, lumbar region Angie Gray M.D. 02/04/2020 M54.2 Cervicalgia Marquis Aly Plan of Treatment Future Appointment(s):* 02/13/2020 6:15 pm - MRI at [facility] * 02/13/2020 5:30 pm - MRI at [facility] * 03/18/2020 10:15 am - Darien Gray M.D. at [facility] Functional Status Description No Information Available Mental Status Description No Information Available Referrals Refer to Dr Reason for Referral Status Appt Date Darien Gray M.D. Created [facility] [address] [place] [address] [phone]
--- OUTSIDE RECORDS SUMMARY | 2020-04-18 07:18 | CCD | Continuity of Care Document ---
Author Author Jeison GRAY M.D. Organization Unknown Address [address] [place] [address] Phone [phone] Care Team Providers Care [facility] Products Assembler Name Role Phone James Cornejo M.D. AUTM [phone] Problems Active Problems Provider Date Headache Melissa [...] lb BMI (Body Mass Index) 29.7 kg/m2 [place] Body Weight 142 lb Results Test Acquired Date Facility Test Result H/L Range Note Laboratory test finding 02/04/2020 [facility] Erythrocyte Sedimentation Rate 4 mm/hr Normal 0-20 Hemoglobin A1c 02/04/2020 [facility] Hemoglobin A1c 5.3 % Normal 1 Estimated Average Glucose 105 mg/dL Normal 60-110 1 REFERENCE RANGES: <=5.6% NORMAL 5.7-6.4% SUGGESTS IMPAIRED GLUCOSE META BOLISM/PREDIABETIC >= 6.5% ABNORMAL Procedures Description No Information Available Medical Devices Description No Information Available Encounters Type Date Location Provider Dx Diagnosis Office Visit 02/04/2020 12:15p Main office - [place] Preethi Aly G56.01 Carpal tunnel syndrome, right upper limb M54.12 Radiculopathy, cervical bob on M54.5 Low back pain M54.16 Radiculopathy, lumbar region M54.2 Cervicalgia Assessments Date Code Description Provider 02/04/2020 G56.01 Carpal tunnel syndrome, right up per limb Darien Isaac, M.D. 02/04/2020 M54.12 Radiculopathy, cervical region A bdul Isaac, M.D. 02/04/2020 M54.5 Low back pain Darien Isaac, M.D . 02/04/2020 M54.16 Radiculopathy, lumbar region Abd ul Isaac, M.D. 02/04/2020 M54.2 Cervicalgia DarienPreethi Guzman.D Shayy Plan of Treatment Future Appointment(s):* 03/18/2020 10:15 am - Darien Gray M.D. at [facility] * 02/11/2020 9:00 am - Darien Gray M.D. at [facility] * 02/07/2020 9:00 am - Darien Gray M.D. at [facility] Functional Status Description No Information Available Mental Status Description No Information Available Referrals Description No Information Available
--- OUTSIDE RECORDS SUMMARY | 2020-04-18 07:18 | CCD | Continuity of Care Document ---
Author Author Jeison GRAY M.D. Organization Unknown Address [address] [place] [address] Phone [phone] Care Team Providers Care Financial Sales Advisor Name Role Phone James Cornejo M.D. AUTM [phone] Problems Active Problems Provider Date Headache Melissa [...] lb BMI (Body Mass Index) 29.7 kg/m2 [place] Body Weight 142 lb Results Test Acquired [...] Health Albumin % 59.6 % Normal 55.8-66.1 Obyvf-2-Ijnqjqve % 4.9 % Normal 2.9-4.9 Nvixm-6-Vtwpgrwww % 10.6 % Normal 7.1-11.8 Dlir-2-Ruwyldfbc % 7.1 % Normal 4.7-7.2 Mwak-4-Tigtqupzp % 6.1 % Normal 3.2-6.5 Gamma Globulin % 11.7 % Normal 11.1-18.8 Albumin 4.47 GM/DL Normal 3.29-5.55 Pratz-6-Halobwdqz 0.37 GM/DL Normal 0.17-0.41 Yvvkg-6-Ofjpxiunv 0.80 GM/DL Normal 0.42-0.99 Sjih-6-Bzhauputg 0.53 GM/DL Normal 0.28-0.60 Tpfr-2-Nhswmlyzx 0.46 GM/DL Normal 0.19-0.55 Gamma Globulins 0.88 [...] NG/ML Procedures Date Code Description Status 02/11/2020 29367 Nerve Conduction 13+ Studies Com pleted 02/11/2020 81209 Needle Electromyography Complete , Five Or More Muscles Studied Completed 02/11/2020 92504 Needle Electromyography Complete , Five Or More Muscles Studied Completed 02/07/2020 33165 Nerve Conduction 13+ Studies Com pleted 02/07/2020 81317 Needle Electromyogra phy Non Extremity Done With Nerve Conduction Completed 02/07/2020 34566 Needle Electromyography Complete , Five Or More Muscles Studied Completed 02/07/2020 03763 Needle Electromyography Complete , Five Or More Muscles Studied Completed Medical Devices Description No Information Available Encounters Type Date Location Provider Dx Diagnosis Office Visit 02/04/2020 12:15p Main office - [place] Darien Isaac, M .DShayy G56.01 Carpal tunnel [...] Darien Gray M.D. at Main office - [place] Functional Status Description No Information Available Mental Status Description No Information Available Referrals Refer to Reason for Referral Status Appt Date Darien Gray M.D. Created [facility] [address] [place] [address] [phone]
--- OUTSIDE RECORDS SUMMARY | 2020-04-18 07:18 | CCD ---
Author Organization Unknown Address [address] [place] [address] Phone [phone] Care Team Providers Care Blow Mold Machine Operator Name Role Phone BRETT MANRIQUEZ MD 4 [phone] Allergies Code Code System Name Reaction Severity Status Onset Penicillins Active 11/24/2016 Medications Name Status Start Date Stop Date gabapentin 800 mg tablet Take 1 tablet as needed by oral route as needed. Active Not available Zanaflex 4 mg tablet [...] Results Lab Results None recorded. Past Encounters 02/06/2020 Low Back Pain; Cervical Spondylosis without Myelopathy; Lumbosacral Spondylosis without Myelopathy; Cervical Radiculopathy; Displacement of Cervical Intervertebral Disc without Myelopathy; Degeneration of Cervical Intervertebral Disc; Myofascial Pain Cathryn Villalobos, OSHA INSPECTOR: [id number] [facility] [address], [place] [address], Ph. Social History None recorded. Vaccine List None recorded. Plan of Care Reminders Provider Appointments None recorded. Lab None recorded. Referral None recorded. Procedures None recorded. Surgeries None recorded. Imaging None recorded. Vitals 02/06/2020 03:45PM Extended Follow Up Visit Blood Pressure 164/94 mm[Hg] 11/24/2016 Height Weight BMI Blood Pressure 5 ft 6 in 190 lbs 30.78 kg/m2 130/84 mm[Hg]
--- OUTSIDE RECORDS SUMMARY | 2020-04-18 07:18 | CCD ---
Continuity of Care Document (CCD) Created on: 02/11/2020 Jeison Singleton JR External Reference #: [id number] : [id number] Sex: Male Author Author Jeison GRAY M.D. Organization Unknown Address [address] [place] [address] Phone [phone] Care Team Providers Care Books Binder Name Role Phone James Cornejo M.D. AUTM [phone] Problems Active Problems Provider Date Headache Melissa [...] lb BMI (Body Mass Index) 29.7 kg/m2 [place] Body Weight 142 lb Results Test Acquired Date Facility Test Result H/L Range Note Laboratory test finding 02/04/2020 [facility] Erythrocyte Sedimentation Rate 4 mm/hr Normal 0-20 Hemoglobin A1c 02/04/2020 [facility] Hemoglobin A1c 5.3 % Normal 1 Estimated Average Glucose 105 mg/dL Normal 60-110 Lupus Type Anticoagulant Scree 02/04/2020 [facility] PTT Lupus Type Anticoag Screen 1.0 Normal 0-1.2 2 Serum Protein Electrophoresis 02/04/2020 [facility] Albumin % 59.6 % Normal 55.8-66.1 Qrqbq-4-Gopbgsvu % 4.9 % Normal 2.9-4.9 Kzbjh-7-Gxwehuhsg % 10.6 % Normal 7.1-11.8 Jznm-5-Qckhgfyfu % 7.1 % Normal 4.7-7.2 Tmqr-7-Sqxiphzfv % 6.1 % Normal 3.2-6.5 Gamma Globulin % 11.7 % Normal 11.1-18.8 Albumin 4.47 GM/DL Normal 3.29-5.55 Qaqwg-9-Ntptqmnjq 0.37 GM/DL Normal 0.17-0.41 Jhahw-3-Jgcqcsusn 0.80 GM/DL Normal 0.42-0.99 Mcdb-9-Lcpzrvluq 0.53 GM/DL Normal 0.28-0.60 Kymc-6-Pmuqygmkf 0.46 GM/DL Normal 0.19-0.55 Gamma Globulins 0.88 GM/DL Normal 0.65-1.58 Total Protein 7.5 GM/DL Normal 6.4-8.2 Spep Interpretation SEE COMMENT Normal 3 Spep Pathologist Review REV'D BY Francisca GUTIERREZ Normal Laboratory test finding 02/04/2020 [facility] Thyroid Stimulating Hormone 0.856 uIU/ML Normal 0.358-3.740 Free T4 0.92 ng/dL Normal 0.76-1.46 Vitamin B12 & Folate 02/04/2020 [facility] Vitamin B12 Level 274 pg/mL Normal 4 Folate 10.3 NG/ML Normal 5 Laboratory test finding 02/04/2020 [facility] Rheumatoid Factor Quant < 10.0 IU/mL [...] 3.4 NG/ML Procedures Date Code Description Status 02/07/2020 76804 Nerve Conduction 13+ Studies Com pleted 02/07/2020 70046 Needle Electromyogra phy Non Extremity Done With Nerve Conduction Completed 02/07/2020 33787 Needle Electromyogra phy Non Extremity Done With Nerve Conduction Completed 02/07/2020 26606 Needle Electromyography Complete , Five Or More Muscles Studied Completed 02/07/2020 93860 Needle Electromyography Complete , Five Or More Muscles Studied Completed Medical Devices Description No Information Available Encounters Type Date Location Provider Dx Diagnosis Office Visit 02/04/2020 12:15p [facility] office - [place] Darien Isaac, M Lala G56.01 Carpal tunnel syndrome, right upper limb M54.12 Radiculopathy, cervical bob on M54.5 Low back pain M54.16 Radiculopathy, lumbar region M54.2 Cervicalgia Assessments Date Code Description Provider 02/07/2020 G56.01 Carpal tunnel syndrome, right up per limb Darien Isaac, M.D. 02/07/2020 M54.12 Radiculopathy, cervical region A bdul Isaac, M.D. 02/07/2020 M54.2 Cervicalgia Darien Isaac, M.D . 02/07/2020 R20.2 Paresthesia of skin Darien Isaac, M.D. 02/07/2020 M25.519 Pain in unspecified shoulder Abd ul Isaac, M.D. 02/04/2020 G56.01 Carpal tunnel syndrome, right up per limb Darien Isaac, M.D. 02/04/2020 M54.12 Radiculopathy, cervical region A bdul Isaac, M.D. 02/04/2020 M54.5 Low back pain Darien Isaac, M.D . 02/04/2020 M54.16 Radiculopathy, lumbar region Abd ul Isaac, M.D. 02/04/2020 M54.2 Cervicalgia Darien Isaac, M.D . Plan of Treatment Future Appointment(s):* 02/13/2020 6:15 pm - MRI at Main office - [place] * 02/13/2020 5:30 pm - MRI at [facility] * 03/18/2020 10:15 am - Darien Gray M.D. at [facility] Functional Status Description No Information Available Mental Status Description No Information Available Referrals Description No Information Available
--- OUTSIDE RECORDS SUMMARY | 2020-04-18 07:18 | CCD | Continuity of Care Document ---
Author Author Jeison GRAY M.D. Organization Unknown Address [address] [place] [address] Phone [phone] Care Team Providers Care Research Development Manager Name Role Phone James Cornejo M.D. AUTM [phone] Problems Active Problems Provider Date Headache Melissa [...] lb BMI (Body Mass Index) 29.7 kg/m2 [place] Body Weight 142 lb Results Test Acquired Date Facility Test Result H/L Range Note Laboratory test finding 02/04/2020 [facility] Erythrocyte Sedimentation Rate 4 mm/hr Normal 0-20 Hemoglobin A1c 02/04/2020 [facility] Hemoglobin A1c 5.3 % Normal 1 Estimated Average Glucose 105 mg/dL Normal 60-110 Lupus Type Anticoagulant Scree 02/04/2020 [facility] PTT Lupus Type Anticoag Screen 1.0 Normal 0-1.2 2 Serum Protein Electrophoresis 02/04/2020 [facility] Albumin % 59.6 % Normal 55.8-66.1 Ohzsa-1-Ehptwpvp % 4.9 % Normal 2.9-4.9 Ttwln-3-Laibmzhun % 10.6 % Normal 7.1-11.8 Fbzb-9-Wwwbkdjad % 7.1 % Normal 4.7-7.2 Tnky-8-Hpcauhmyp % 6.1 % Normal 3.2-6.5 Gamma Globulin % 11.7 % Normal 11.1-18.8 Albumin 4.47 GM/DL Normal 3.29-5.55 Owdsp-4-Rehykseww 0.37 GM/DL Normal 0.17-0.41 Timnn-9-Wdwgcxrfd 0.80 GM/DL Normal 0.42-0.99 Zaxi-4-Yohzwhyfb 0.53 GM/DL Normal 0.28-0.60 Yynu-3-Vlejgugxh 0.46 GM/DL Normal 0.19-0.55 Gamma Globulins 0.88 GM/DL Normal 0.65-1.58 Total Protein 7.5 GM/DL Normal 6.4-8.2 Spep Interpretation SEE COMMENT Normal 3 Spep Pathologist Review REV'D BY Francisca GUTIERREZ Normal Laboratory test finding 02/04/2020 [facility] Thyroid Stimulating Hormone 0.856 uIU/ML Normal 0.358-3.740 Free T4 0.92 ng/dL Normal 0.76-1.46 Vitamin B12 & Folate 02/04/2020 [facility] Vitamin B12 Level 274 pg/mL Normal 4 Folate 10.3 NG/ML Normal 5 Laboratory test finding 02/04/2020 [facility] Rheumatoid Factor Quant < 10.0 IU/mL [...] NG/ML DEFICIENT LESS THAN 3.4 NG/ML Procedures Description No Information Available Medical Devices Description No Information Available Encounters Type Date Location Provider Dx Diagnosis Office Visit 02/04/2020 12:15p [facility] Preethi Aly G56.01 Carpal tunnel syndrome, right upper limb M54.12 Radiculopathy, cervical bob on M54.5 Low back pain M54.16 Radiculopathy, lumbar region M54.2 Cervicalgia Assessments Date Code Description Provider 02/04/2020 G56.01 Carpal tunnel syndrome, right up per limb Darien Gray M.D. 02/04/2020 M54.12 Radiculopathy, cervical region A bdrubens Gray M.D. 02/04/2020 M54.5 Low back pain Marquis Aly 02/04/2020 M54.16 Radiculopathy, lumbar region Angie ul Janett Gray 02/04/2020 M54.2 Cervicalgia Marquis Aly Plan of Treatment Future Appointment(s):* 03/18/2020 10:15 am - Darien Gray M.D. at [facility] * 02/11/2020 9:00 am - Darien Gray M.D. at [facility] Functional Status Description No Information Available Mental Status Description No Information Available Referrals Description No Information Available
--- OUTSIDE RECORDS SUMMARY | 2020-04-18 07:19 | CCD ---
Author Author [facility] Organization [facility] Address Unknown Phone Unavailable Care Team Providers Care Platform Mill Supervisor Name Role Phone Rhett Gray Unavailable Unavailable Rhett Gray Unavailable Unavailable Rhett Gray Unavailable Unavailable Rhett Gray Unavailable Unavailable Rhett Gray Unavailable Unavailable Rhett Gray Unavailable Unavailable IsaacRhett deluna Unavailable Unavailable IsaacRhett deluna Unavailable Unavailable Rhett Gray Unavailable Unavailable Rhett Gray Unavailable Unavailable Rhett Gray Unavailable Unavailable Rhett Gray Unavailable Unavailable Rhett Gray Unavailable Unavailable Rhett Gray Unavailable Unavailable Rhett Gray Unavailable Unavailable IsaacRhett deluna Unavailable Unavailable IsaacRhett deluna Unavailable Unavailable Rhett Gray Unavailable Unavailable Rhett Gray Unavailable Unavailable IsaacRhett deluna Unavailable Unavailable IsaacRhett deluna Unavailable Unavailable IsaacRhett deluna Unavailable Unavailable IsaacRhett deluna Unavailable Unavailable IsaacRhett deluna Unavailable Unavailable Isaac, Darien MD Unavailable Unavailable Isaac, Darien MD Unavailable Unavailable Isaac, Darien MD Unavailable Unavailable Isaac, Darien MD Unavailable Unavailable Isaac, Darien MD Unavailable Unavailable Isaac, Darien MD Unavailable Unavailable Isaac, Darien MD Unavailable Unavailable Isaac, Darien MD Unavailable Unavailable Isaac, Darien MD Unavailable Unavailable Isaac, Darien MD Unavailable Unavailable Isaac, Darien MD Unavailable Unavailable Isaac, Darien MD Unavailable Unavailable Isaac, Darien MD Unavailable Unavailable Isaac, Darien MD Unavailable Unavailable Isaac, Darien MD Unavailable Unavailable Isaac, Darien MD Unavailable Unavailable Isaac, Darien MD Unavailable Unavailable Isaac, Darien MD Unavailable Unavailable Isaac, Darien MD Unavailable Unavailable Isaac, Darien MD Unavailable Unavailable Isaac, Darien MD Unavailable Unavailable Isaac, Darien MD Unavailable Unavailable Isaac, Darien MD Unavailable Unavailable Isaac, Darien MD Unavailable Unavailable Isaac, Darien MD Unavailable Unavailable Isaac, Darien MD Unavailable Unavailable Isaac, Darien MD Unavailable Unavailable Isaac, Darien MD Unavailable Unavailable Isaac, Darien MD Unavailable Unavailable Isaac, Darien MD Unavailable Unavailable Isaac, Darien MD Unavailable Unavailable Isaac, Darien MD Unavailable Unavailable Isaac, Darien MD Unavailable Unavailable Isaac, Darien MD Unavailable Unavailable Isaac, Darien MD Unavailable Unavailable Isaac, Darien MD Unavailable Unavailable Isaac, Darien MD Unavailable Unavailable Isaac, Darien MD Unavailable Unavailable Nikita Cornejo MD Unavailable Unavailable Nikita Cornejo MD Unavailable Unavailable Nikita Cornejo MD Unavailable Unavailable Nikita Cornejo MD Unavailable Unavailable Nikita Cornejo MD Unavailable Unavailable Nikita Cornejo MD Unavailable Unavailable Nikita Cornejo MD Unavailable Unavailable Nikita Cornejo MD Unavailable Unavailable Nikita Cornejo MD Unavailable Unavailable Nikita Cornejo MD Unavailable Unavailable Nikita Cornejo MD Unavailable Unavailable Nikita Cornejo MD Unavailable Unavailable Nikita Cornejo MD Unavailable Unavailable Nikita Cornejo MD Unavailable Unavailable Nikita Cornejo MD Unavailable Unavailable Nikita Cornejo MD Unavailable Unavailable Nikita Cornejo MD Unavailable Unavailable Nikita Cornejo MD Unavailable Unavailable Nikita Cornejo MD Unavailable Unavailable Nikita Cornejo MD Unavailable Unavailable Nikita Cornejo MD Unavailable Unavailable Nikita Cornejo MD Unavailable Unavailable Nikita Cornejo MD Unavailable Unavailable Nikita Cornejo MD Unavailable Unavailable Nikita Cornejo MD Unavailable Unavailable Nikita Cornejo MD Unavailable Unavailable Nikita Cornejo MD Unavailable Unavailable Nikita Cornejo MD Unavailable Unavailable Nikita Cornejo MD Unavailable Unavailable Nikita Cornejo MD Unavailable Unavailable Nikita Cornejo MD Unavailable Unavailable Nikita Cornejo MD Unavailable Unavailable Nikita Cornejo MD Unavailable Unavailable Nikita Cornejo MD Unavailable Unavailable Nikita Cornejo MD Unavailable Unavailable Nikita Cornejo MD Unavailable Unavailable Nikita Cornejo MD Unavailable Unavailable Nikita Cornejo MD Unavailable Unavailable Nikita Cornejo MD Unavailable Unavailable Nikita Cornejo MD Unavailable Unavailable Nikita Cornejo MD Unavailable Unavailable Nikita Cornejo MD Unavailable Unavailable Nikita Cornejo MD Unavailable Unavailable Nikita Cornejo MD Unavailable Unavailable Nikita Cornejo MD Unavailable Unavailable Nikita Cornejo MD Unavailable Unavailable Nikita Cornejo MD Unavailable Unavailable Nikita Cornejo MD Unavailable Unavailable Nikita Cornejo MD Unavailable Unavailable Nikita Cornejo MD Unavailable Unavailable Nikita Cornejo MD Unavailable Unavailable Nikita Cornejo MD Unavailable Unavailable Nikita Cornejo MD Unavailable Unavailable Nikita Cornejo MD Unavailable Unavailable Nikita Cornejo MD Unavailable Unavailable Nikita Cornejo MD Unavailable Unavailable Nikita Cornejo MD Unavailable Unavailable Nikita Cornejo MD Unavailable Unavailable Nikita Cornejo MD Unavailable Unavailable Nikita Cornejo MD Unavailable Unavailable Nikita Cornejo MD Unavailable Unavailable Nikita Cornejo MD Unavailable Unavailable Nikita Cornejo MD Unavailable Unavailable Nikita Cornejo MD Unavailable Unavailable Nikita Cornejo MD Unavailable Unavailable Nikita Cornejo MD Unavailable Unavailable Nikita Cornejo MD Unavailable Unavailable Nikita Cornejo MD Unavailable Unavailable Nikita Cornejo MD Unavailable Unavailable Nikita Cornejo MD Unavailable Unavailable Nikita Cornejo MD Unavailable Unavailable Nikita Cornejo MD Unavailable Unavailable Nikita Cornejo MD Unavailable Unavailable Nikita Cornejo MD Unavailable Unavailable Nikita Cornejo MD Unavailable Unavailable Nikita Cornejo MD Unavailable Unavailable Nikita Cornejo MD Unavailable Unavailable Nikita Cornejo MD Unavailable Unavailable Nikita Cornejo MD Unavailable Unavailable Nikita Cornejo MD Unavailable Unavailable Nikita Cornejo MD Unavailable Unavailable Nikita Cornejo MD Unavailable Unavailable Nikita Cornejo MD Unavailable Unavailable Nikita Cornejo MD Unavailable Unavailable Nikita Cornejo MD Unavailable Unavailable Nikita Cornejo MD Unavailable Unavailable Nikita Cornejo MD Unavailable Unavailable Nikita Cornejo MD Unavailable Unavailable Nikita Cornejo MD Unavailable Unavailable MCELHERAN, MARCOS PA Unavailable Unavailable MCELHERAN, MARCOS PA Unavailable Unavailable MCELHERAN, MARCOS PA Unavailable Unavailable MCELHERAN, MARCOS PA Unavailable Unavailable MCELHERAN, MARCOS PA Unavailable Unavailable MCELHERAN, MARCOS PA Unavailable Unavailable MCELHERAN, MARCOS PA Unavailable Unavailable MCELHERAN, MARCOS PA Unavailable Unavailable MCELHERAN, MARCOS PA Unavailable Unavailable MCELHERAN, MARCOS PA Unavailable Unavailable MCELHERAN, MARCOS PA Unavailable Unavailable MCELHERAN, MARCOS PA Unavailable Unavailable MCELHERAN, MARCOS PA Unavailable Unavailable MCELHERAN, MARCOS PA Unavailable Unavailable MCELHERAN, MARCOS PA Unavailable Unavailable MCELHERAN, MARCOS PA Unavailable Unavailable MCELHERAN, MARCOS PA Unavailable Unavailable MCELHERAN, MARCOS PA Unavailable Unavailable MCELHERAN, MARCOS PA Unavailable Unavailable MCELHERAN, MARCOS PA Unavailable Unavailable MCELHERAN, MARCOS PA Unavailable Unavailable MCELHERAN, MARCOS PA Unavailable Unavailable MCELHERAN, MARCOS PA Unavailable Unavailable MCELHERAN, MARCOS PA Unavailable Unavailable MCELHERAN, MARCOS PA Unavailable Unavailable MCELHERAN, MARCOS PA Unavailable Unavailable MCELHERAN, MARCOS PA Unavailable Unavailable MCELHERAN, MARCOS PA Unavailable Unavailable EVERDING, G SORAIDA MD Unavailable Unavailable EVERDING, G SORAIDA MD Unavailable Unavailable EVERDING, G SORAIDA MD Unavailable Unavailable EVERDING, G SORAIDA MD Unavailable Unavailable EVERDING, G SORAIDA MD Unavailable Unavailable EVERDING, G SORAIDA MD Unavailable Unavailable EVERDING, G SORAIDA MD Unavailable Unavailable EVERDING, G SORAIDA MD Unavailable Unavailable EVERDING, G SORAIDA MD Unavailable Unavailable EVERDING, G SORAIDA MD Unavailable Unavailable EVERDING, G SORAIDA MD Unavailable Unavailable EVERDING, G SORAIDA MD Unavailable Unavailable EVERDING, G SORAIDA MD Unavailable Unavailable EVERDING, G SORAIDA MD Unavailable Unavailable EVERDING, G SORAIDA MD Unavailable Unavailable EVERDING, G SORAIDA MD Unavailable Unavailable EVERDING, G SORAIDA MD Unavailable Unavailable EVERDING, G SORAIDA MD Unavailable Unavailable EVERDING, G SORAIDA MD Unavailable Unavailable EVERDING, G SORAIDA MD Unavailable Unavailable EVERDING, G SORAIDA MD Unavailable Unavailable EVERDING, G SORAIDA MD Unavailable Unavailable EVERDING, G SORAIDA MD Unavailable Unavailable EVERDING, G SORAIDA MD Unavailable Unavailable EVERDING, G SORAIDA MD Unavailable Unavailable EVERDING, G SORAIDA MD Unavailable Unavailable EVERDING, G SORAIDA MD Unavailable Unavailable EVERDING, G SORAIDA MD Unavailable Unavailable EVERDING, G SORAIDA MD Unavailable Unavailable EVERDING, G SORAIDA MD Unavailable Unavailable EVERDING, G SORAIAD MD Unavailable Unavailable EVERDING, G SORAIDA MD Unavailable Unavailable EVERDING, G SORAIDA MD Unavailable Unavailable EVERDING, G SORAIDA MD Unavailable Unavailable EVERDING, G SORAIDA MD Unavailable Unavailable EVERDING, G SORAIDA MD Unavailable Unavailable EVERDING, G SORAIDA MD Unavailable Unavailable EVERDING, G SORAIDA MD Unavailable Unavailable EVERDING, G SORAIDA MD Unavailable Unavailable EVERDING, G SORAIDA MD Unavailable Unavailable EVERDING, G SORAIDA MD Unavailable Unavailable EVERDING, G SORAIDA MD Unavailable Unavailable EVERDING, G SORAIDA MD Unavailable Unavailable EVERDING, G SORAIDA MD Unavailable Unavailable EVERDING, G SORAIDA MD Unavailable Unavailable EVERDING, G SORAIDA MD Unavailable Unavailable EVERDING, G SORAIDA MD Unavailable Unavailable EVERDING, G SORAIDA MD Unavailable Unavailable EVERDING, G SORAIDA MD Unavailable Unavailable EVERDING, G SORAIDA MD Unavailable Unavailable EVERDING, G SORAIDA MD Unavailable Unavailable EVERDING, G SORADIA MD Unavailable Unavailable EVERDING, G SORAIDA MD Unavailable Unavailable EVERDING, G SORAIDA MD Unavailable Unavailable EVERDING, G SOARIDA MD Unavailable Unavailable EVERDING, G SORAIDA MD Unavailable Unavailable EVERDING, G SORAIDA MD Unavailable Unavailable EVERDING, G SORAIDA MD Unavailable Unavailable EVERDING, G SORAIDA MD Unavailable Unavailable EVERDING, G SORAIDA MD Unavailable Unavailable EVERDING, G SORAIDA MD Unavailable Unavailable EVERDING, G SORAIDA MD Unavailable Unavailable EVERDING, G SORAIDA MD Unavailable Unavailable EVERDING, G SORAIDA MD Unavailable Unavailable EVERDING, G SORAIDA MD Unavailable Unavailable EVERDING, G SORAIDA MD Unavailable Unavailable EVERDING, G SORAIDA MD Unavailable Unavailable EVERDING, G SORAIDA CAESY Unavailable Unavailable EVERDING, G SORAIDA MD Unavailable Unavailable EVERDING, G SORAIDA MD Unavailable Unavailable EVERDING, G SORAIDA MD Unavailable Unavailable EVERDING, G SORAIDA MD Unavailable Unavailable EVERDING, G SORAIDA CASEY Unavailable Unavailable EVERDING, G SORAIDA CASEY Unavailable Unavailable EVERDING, Rosana QUIGLEY MD Unavailable Unavailable EVERDING, Rosana QUIGLEY MD Unavailable Unavailable EVERDING, Rosana QUIGLEY MD Unavailable Unavailable Ana LUNA MD Unavailable Unavailable Ana LUNA MD Unavailable Unavailable Ana LUNA MD Unavailable Unavailable Ana LUNA MD Unavailable Unavailable Ana LUNA MD Unavailable Unavailable Ana LUNA MD Unavailable Unavailable Ana LUNA MD Unavailable Unavailable Ana LUNA MD Unavailable Unavailable Ana LUNA MD Unavailable Unavailable Ana LUNA MD Unavailable Unavailable Ana LUNA MD Unavailable Unavailable Ana LUNA MD Unavailable Unavailable Ana LUNA MD Unavailable Unavailable Ana LUNA MD Unavailable Unavailable Ana LUNA MD Unavailable Unavailable Ana LUNA MD Unavailable Unavailable Ana LUNA MD Unavailable Unavailable Ana LUNA MD Unavailable Unavailable Ana LUNA MD Unavailable Unavailable Ana LUNA MD Unavailable Unavailable Ana LUNA MD Unavailable Unavailable Ana LUNA MD Unavailable Unavailable Ana LUNA MD Unavailable Unavailable Ana LUNA MD Unavailable Unavailable Ana LUNA MD Unavailable Unavailable Ana LUNA MD Unavailable Unavailable Ana LUNA MD Unavailable Unavailable Ana LUNA MD Unavailable Unavailable Ana LUNA MD Unavailable Unavailable Ana LUNA MD Unavailable Unavailable Ana LUNA MD Unavailable Unavailable Ana LUNA MD Unavailable Unavailable Ana LUNA MD Unavailable Unavailable Ana LUNA MD Unavailable Unavailable Ana LUNA MD Unavailable Unavailable Ana LUNA MD Unavailable Unavailable Ana LUNA MD Unavailable Unavailable Ana LUNA MD Unavailable Unavailable Ana LUNA MD Unavailable Unavailable Ana LUNA MD Unavailable Unavailable Ana LUNA MD Unavailable Unavailable Ana LUNA MD Unavailable Unavailable Ana LUNA MD Unavailable Unavailable Ana LUNA MD Unavailable Unavailable Ana LUNA MD Unavailable Unavailable Ana LUNA MD Unavailable Unavailable Ana LUNA MD Unavailable Unavailable Ana LUNA MD Unavailable Unavailable Ana LUNA MD Unavailable Unavailable Ana LUNA MD Unavailable Unavailable Ana LUNA MD Unavailable Unavailable Ana LUNA MD Unavailable Unavailable Ana LUNA MD Unavailable Unavailable Ana LUNA MD Unavailable Unavailable Ana LUNA MD Unavailable Unavailable Ana LUNA MD Unavailable Unavailable Ana LUNA MD Unavailable Unavailable Ana LUNA MD Unavailable Unavailable Ana LUNA MD Unavailable Unavailable Ana LUNA MD Unavailable Unavailable Ana LUNA MD Unavailable Unavailable Ana LUNA MD Unavailable Unavailable Ana LUNA MD Unavailable Unavailable Ana LUNA MD Unavailable Unavailable Ana LUNA MD Unavailable Unavailable Ana LUNA MD Unavailable Unavailable Ana LUNA MD Unavailable Unavailable Ana LUNA MD Unavailable Unavailable Ana LUNA MD Unavailable Unavailable Ana LUNA MD Unavailable Unavailable TESSA, Ana URIBE MD Unavailable Unavailable TESSA, Ana URIBE MD Unavailable Unavailable TESSA, Ana URIBE MD Unavailable Unavailable TESSA, Ana URIBE MD Unavailable Unavailable TESSA, Ana URIBE MD Unavailable Unavailable TESSA, Ana URIBE MD Unavailable Unavailable TESSA, Ana URIBE MD Unavailable Unavailable TESSA, Ana URIBE MD Unavailable Unavailable TESSA, Ana URIBE MD Unavailable Unavailable TESSA, Ana URIBE MD Unavailable Unavailable TESSA, Ana URIBE MD Unavailable Unavailable TESSA, Ana URIBE MD Unavailable Unavailable TESSA, Ana URIBE MD Unavailable Unavailable Keith, A Rukhsana OPTICAL MODEL MAKER AND TESTER Unavailable Unavailable Keith, A Rukhsana OPTICAL MODEL MAKER AND TESTER Unavailable Unavailable Keith, A Rukhsana OPTICAL MODEL MAKER AND TESTER Unavailable Unavailable Keith, A Rukhsana OPTICAL MODEL MAKER AND TESTER Unavailable Unavailable Alva, A Rukhsana OPTICAL MODEL MAKER AND TESTER Unavailable Unavailable Alva, A Rukhsana OPTICAL MODEL MAKER AND TESTER Unavailable Unavailable Alva, A Rukhsana OPTICAL MODEL MAKER AND TESTER Unavailable Unavailable Alva, A Rukhsana OPTICAL MODEL MAKER AND TESTER Unavailable Unavailable Alva, A Rukhsana OPTICAL MODEL MAKER AND TESTER Unavailable Unavailable Alva, A Rukhsana OPTICAL MODEL MAKER AND TESTER Unavailable Unavailable Alva, A Rukhsana OPTICAL MODEL MAKER AND TESTER Unavailable Unavailable Alva, A Rukhsana OPTICAL MODEL MAKER AND TESTER Unavailable Unavailable Alva, A Rukhsana OPTICAL MODEL MAKER AND TESTER Unavailable Unavailable Alva, A Rukhsana OPTICAL MODEL MAKER AND TESTER Unavailable Unavailable Alva, A Rukhsana OPTICAL MODEL MAKER AND TESTER Unavailable Unavailable Alva, A Rukhsana OPTICAL MODEL MAKER AND TESTER Unavailable Unavailable Alva, A Rukhsana OPTICAL MODEL MAKER AND TESTER Unavailable Unavailable Alva, A Rukhsana OPTICAL MODEL MAKER AND TESTER Unavailable Unavailable Alva, A Rukhsana OPTICAL MODEL MAKER AND TESTER Unavailable Unavailable Alva, A Rukhsana OPTICAL MODEL MAKER AND TESTER Unavailable Unavailable Alva, A Rukhsana OPTICAL MODEL MAKER AND TESTER Unavailable Unavailable Alva, A Rukhsana OPTICAL MODEL MAKER AND TESTER Unavailable Unavailable Alva, A Rukhsana OPTICAL MODEL MAKER AND TESTER Unavailable Unavailable Alva, A Rukhsana OPTICAL MODEL MAKER AND TESTER Unavailable Unavailable Alva, A Rukhsana OPTICAL MODEL MAKER AND TESTER Unavailable Unavailable Alva, A Rukhsana OPTICAL MODEL MAKER AND TESTER Unavailable Unavailable Alva, A Rukhsana OPTICAL MODEL MAKER AND TESTER Unavailable Unavailable Jumalon, M Cathryn OPTICAL MODEL MAKER AND TESTER Unavailable Unavailable Jumalon, M Cathryn OPTICAL MODEL MAKER AND TESTER Unavailable Unavailable Jumalon, M Cathryn OPTICAL MODEL MAKER AND TESTER Unavailable Unavailable Jumalon, M Cathryn OPTICAL MODEL MAKER AND TESTER Unavailable Unavailable Jumalon, M Cathryn OPTICAL MODEL MAKER AND TESTER Unavailable Unavailable Jumalon, M Cathryn OPTICAL MODEL MAKER AND TESTER Unavailable Unavailable Jumalon, M Cathryn OPTICAL MODEL MAKER AND TESTER Unavailable Unavailable Jumalon, M Cathryn OPTICAL MODEL MAKER AND TESTER Unavailable Unavailable Jumalon, M Cathryn OPTICAL MODEL MAKER AND TESTER Unavailable Unavailable Jumalon, M Cathryn OPTICAL MODEL MAKER AND TESTER Unavailable Unavailable Jumalon, M Cathryn OPTICAL MODEL MAKER AND TESTER Unavailable Unavailable Jumalon, M Cathryn OPTICAL MODEL MAKER AND TESTER Unavailable Unavailable Jumalon, M Cathryn OPTICAL MODEL MAKER AND TESTER Unavailable Unavailable Jumalon, M Cathryn OPTICAL MODEL MAKER AND TESTER Unavailable Unavailable Jumalon, M Cathryn OPTICAL MODEL MAKER AND TESTER Unavailable Unavailable Jumalon, M Cathryn OPTICAL MODEL MAKER AND TESTER Unavailable Unavailable Jumalon, M Cathryn OPTICAL MODEL MAKER AND TESTER Unavailable Unavailable Jumalon, M Cathryn OPTICAL MODEL MAKER AND TESTER Unavailable Unavailable Jumalon, M Cathryn OPTICAL MODEL MAKER AND TESTER Unavailable Unavailable Jumalon, M Cathryn OPTICAL MODEL MAKER AND TESTER Unavailable Unavailable Jumalon, M Cathryn OPTICAL MODEL MAKER AND TESTER Unavailable Unavailable Jumalon, M Cathryn OPTICAL MODEL MAKER AND TESTER Unavailable Unavailable Jumalon, M Cathryn OPTICAL MODEL MAKER AND TESTER Unavailable Unavailable Jumalon, M Cathryn OPTICAL MODEL MAKER AND TESTER Unavailable Unavailable Jumalon, M Cathryn OPTICAL MODEL MAKER AND TESTER Unavailable Unavailable Jumalon, M Cathryn OPTICAL MODEL MAKER AND TESTER Unavailable Unavailable Jumalon, M Cathryn OPTICAL MODEL MAKER AND TESTER Unavailable Unavailable Jumalon, M Cathryn OPTICAL MODEL MAKER AND TESTER Unavailable Unavailable Vinny YOUNG DPM Unavailable Unavailable Vinny YOUNG DPM Unavailable Unavailable Vinny YOUNG DPM Unavailable Unavailable Vinny YUONG DPM Unavailable Unavailable Vinny YOUNG DPM Unavailable Unavailable Vinny YOUNG DPM Unavailable Unavailable Vinny YOUNG DPM Unavailable Unavailable Vinny YOUNG DPM Unavailable Unavailable Vinny YOUNG DPM Unavailable Unavailable Vinny YOUNG DPM Unavailable Unavailable Vinny YOUNG DPM Unavailable Unavailable Vinny YOUNG DPM Unavailable Unavailable Vinny YOUNG DPM Unavailable Unavailable Vinny YOUNG DPM Unavailable Unavailable Vinny YOUNG DPM Unavailable Unavailable Vinny YOUNG DPM Unavailable Unavailable Vinny YOUNG DPM Unavailable Unavailable Vinny YOUNG DPM Unavailable Unavailable Vinny YOUNG DPM Unavailable Unavailable Vinny YOUNG DPM Unavailable Unavailable Vinny YOUNG DPM Unavailable Unavailable Vinny YOUNG DPM Unavailable Unavailable Vinny YOUNG DPM Unavailable Unavailable Vinny YOUNG DPM Unavailable Unavailable Vinny YOUNG DPM Unavailable Unavailable Vinny YOUNG DPM Unavailable Unavailable Vinny YOUNG DPM Unavailable Unavailable Vinny YOUNG DPM Unavailable Unavailable MAJAK, R ANGELA DPM Unavailable Unavailable MAJAK, R ANGELA DPM Unavailable Unavailable Nikita Cornejo MD Unavailable Unavailable Nikita Cornejo MD Unavailable Unavailable Nikita Cornejo MD Unavailable Unavailable Nikita Cornejo MD Unavailable Unavailable Nikita Cornejo MD Unavailable Unavailable Nikita Cornejo MD Unavailable Unavailable Nikita Cornejo MD Unavailable Unavailable Nikita Cornejo MD Unavailable Unavailable Nikita Cornejo MD Unavailable Unavailable Nikita Cornejo MD Unavailable Unavailable Nikita Cornejo MD Unavailable Unavailable Nikita Cornejo MD Unavailable Unavailable Nikita Cornejo MD Unavailable Unavailable Nikita Cornejo MD Unavailable Unavailable Nikita Cornejo MD Unavailable Unavailable Nikita Cornejo MD Unavailable Unavailable Nikita Cornejo MD Unavailable Unavailable Nikita Cornejo MD Unavailable Unavailable Nikita Cornejo MD Unavailable Unavailable Nikita Cornejo MD Unavailable Unavailable Nikita Cornejo MD Unavailable Unavailable Nikita Cornejo MD Unavailable Unavailable Nikita Cornejo MD Unavailable Unavailable Nikita Cornejo MD Unavailable Unavailable Nikita Cornejo MD Unavailable Unavailable Nikita Cornejo MD Unavailable Unavailable Nikita Cornejo MD Unavailable Unavailable Nikita Cornejo MD Unavailable Unavailable Nikita Cornejo MD Unavailable Unavailable Nikita Cornejo MD Unavailable Unavailable Nikita Cornejo MD Unavailable Unavailable Nikita Cornejo MD Unavailable Unavailable Nikita Cornejo MD Unavailable Unavailable Nikita Cornejo MD Unavailable Unavailable Nikita Cornejo MD Unavailable Unavailable Nikita Cornejo MD Unavailable Unavailable Nikita Cornejo MD Unavailable Unavailable Nikita Cornejo MD Unavailable Unavailable Nikita Cornejo MD Unavailable Unavailable Nikita Cornejo MD Unavailable Unavailable Nikita Cornejo MD Unavailable Unavailable Nikita Cornejo MD Unavailable Unavailable Nikita Cornejo MD Unavailable Unavailable Nikita Cornejo MD Unavailable Unavailable Nikita Cornejo MD Unavailable Unavailable Nikita Cornejo MD Unavailable Unavailable Nikita Cornejo MD Unavailable Unavailable Nikita Cornejo MD Unavailable Unavailable Nikita Cornejo MD Unavailable Unavailable Nikita Cornejo MD Unavailable Unavailable Nikita Cornejo MD Unavailable Unavailable Nikita Cornejo MD Unavailable Unavailable Nikita Cornejo MD Unavailable Unavailable Nikita Cornejo MD Unavailable Unavailable Nikita Cornejo MD Unavailable Unavailable Nikita Cornejo MD Unavailable Unavailable Nikita Cornejo MD Unavailable Unavailable Nikita Cornejo MD Unavailable Unavailable Nikita Cornejo MD Unavailable Unavailable Nikita Cornejo MD Unavailable Unavailable Nikita Cornejo MD Unavailable Unavailable Nikita Cornejo MD Unavailable Unavailable Nikita Cornejo MD Unavailable Unavailable Nikita Cornejo MD Unavailable Unavailable Nikita Cornejo MD Unavailable Unavailable Nikita Cornejo MD Unavailable Unavailable Nikita Cornejo MD Unavailable Unavailable Nikita Cornejo MD Unavailable Unavailable Nikita Cornejo MD Unavailable Unavailable Nikita Cornejo MD Unavailable Unavailable Nikita Cornejo MD Unavailable Unavailable Nikita Cornejo MD Unavailable Unavailable Nikita Cornejo MD Unavailable Unavailable Nikita Cornejo MD Unavailable Unavailable Nikita Cornejo MD Unavailable Unavailable Nikita Cornejo MD Unavailable Unavailable Nikita Cornejo MD Unavailable Unavailable Nikita Cornejo MD Unavailable Unavailable Nikita Cornejo MD Unavailable Unavailable Nikita Cornejo MD Unavailable Unavailable Nikita Cornejo MD Unavailable Unavailable Nikita Cornejo MD Unavailable Unavailable Nikita Cornejo MD Unavailable Unavailable Nikita Cornejo MD Unavailable Unavailable Nikita Cornejo MD Unavailable Unavailable Nikita Cornejo MD Unavailable Unavailable Nikita Cornejo MD Unavailable Unavailable Nikita Cornejo MD Unavailable Unavailable Nikita Cornejo MD Unavailable Unavailable Ana LUNA MD Unavailable Unavailable Ana LUNA MD Unavailable Unavailable Ana LUNA MD Unavailable Unavailable Ana LUNA MD Unavailable Unavailable Ana LUNA MD Unavailable Unavailable Ana LUNA MD Unavailable Unavailable Ana LUNA MD Unavailable Unavailable Ana LUNA MD Unavailable Unavailable Ana LUNA MD Unavailable Unavailable Ana LUNA MD Unavailable Unavailable Ana LUNA MD Unavailable Unavailable Ana LUNA MD Unavailable Unavailable Ana LUNA MD Unavailable Unavailable Ana LUNA MD Unavailable Unavailable Ana LUNA MD Unavailable Unavailable Ana LUNA MD Unavailable Unavailable Ana LUNA MD Unavailable Unavailable Ana LUNA MD Unavailable Unavailable Ana LUNA MD Unavailable Unavailable Ana LUNA MD Unavailable Unavailable Ana LUNA MD Unavailable Unavailable Ana LUNA MD Unavailable Unavailable Ana LUNA MD Unavailable Unavailable Ana LUNA MD Unavailable Unavailable Ana LUNA MD Unavailable Unavailable Ana LUNA MD Unavailable Unavailable Ana LUNA MD Unavailable Unavailable Ana LUNA MD Unavailable Unavailable Ana LUNA MD Unavailable Unavailable Ana LUNA MD Unavailable Unavailable Ana LUNA MD Unavailable Unavailable Ana LUNA MD Unavailable Unavailable Ana LUNA MD Unavailable Unavailable Ana LUNA MD Unavailable Unavailable Ana LUNA MD Unavailable Unavailable Ana LUNA MD Unavailable Unavailable Ana LUNA MD Unavailable Unavailable Ana LUNA MD Unavailable Unavailable Ana LUNA MD Unavailable Unavailable nAa LUNA MD Unavailable Unavailable Ana LUNA MD Unavailable Unavailable Ana LUNA MD Unavailable Unavailable Ana LUNA MD Unavailable Unavailable Ana LUNA MD Unavailable Unavailable Ana LUNA MD Unavailable Unavailable Ana LUNA MD Unavailable Unavailable Ana LUNA MD Unavailable Unavailable Ana LUNA MD Unavailable Unavailable Ana LUNA MD Unavailable Unavailable Ana LUNA MD Unavailable Unavailable Ana LUNA MD Unavailable Unavailable Ana LUNA MD Unavailable Unavailable Ana LUNA MD Unavailable Unavailable Ana LUNA MD Unavailable Unavailable Ana LUNA MD Unavailable Unavailable Ana LUNA MD Unavailable Unavailable Ana LUNA MD Unavailable Unavailable Ana LUNA MD Unavailable Unavailable Ana LUNA MD Unavailable Unavailable Ana LUNA MD Unavailable Unavailable Ana LUNA MD Unavailable Unavailable Ana LUNA MD Unavailable Unavailable Ana LUNA MD Unavailable Unavailable Ana LUNA MD Unavailable Unavailable Ana LUNA MD Unavailable Unavailable Ana LUNA MD Unavailable Unavailable Ana LUNA MD Unavailable Unavailable Ana LUNA MD Unavailable Unavailable Ana LUNA MD Unavailable Unavailable Ana LUNA MD Unavailable Unavailable Ana LUNA MD Unavailable Unavailable Ana LUNA MD Unavailable Unavailable Ana LUNA MD Unavailable Unavailable Ana LUNA MD Unavailable Unavailable Ana LUNA MD Unavailable Unavailable Ana LUNA MD Unavailable Unavailable Ana LUNA MD Unavailable Unavailable Ana LUNA MD Unavailable Unavailable Ana LUNA MD Unavailable Unavailable Ana LUNA MD Unavailable Unavailable Ana LUNA MD Unavailable Unavailable Ana LUNA MD Unavailable Unavailable Ana LUNA MD Unavailable Unavailable URBANO GALE MD Unavailable Unavailable URBANO GALE MD Unavailable Unavailable URBANO GALE MD Unavailable Unavailable URBANO GALE MD Unavailable Unavailable URBANO GALE MD Unavailable Unavailable URBANO GALE MD Unavailable Unavailable URBANO GALE MD Unavailable Unavailable URBANO GALE MD Unavailable Unavailable URBANO GALE MD Unavailable Unavailable URBANO GALE MD Unavailable Unavailable URBANO GALE MD Unavailable Unavailable URBANO GALE MD Unavailable Unavailable URBANO GALE MD Unavailable Unavailable GALE, URBANO MD Unavailable Unavailable GALE, URBANO MD Unavailable Unavailable GALE, URBANO MD Unavailable Unavailable GALE, URBANO MD Unavailable Unavailable GALE, URBANO MD Unavailable Unavailable GALE, URBANO MD Unavailable Unavailable GALE, URBANO MD Unavailable Unavailable GALE, URBANO MD Unavailable Unavailable GALE, URBANO MD Unavailable Unavailable GALE, URBANO MD Unavailable Unavailable GALE, URBANO MD Unavailable Unavailable GALE, URBANO MD Unavailable Unavailable GALE, URBANO MD Unavailable Unavailable GALE, URBANO MD Unavailable Unavailable GALE, URBANO MD Unavailable Unavailable GALE, URBANO MD Unavailable Unavailable GALE, URBANO MD Unavailable Unavailable GALE, URBANO MD Unavailable Unavailable GALE, URBANO MD Unavailable Unavailable GALE, URBANO MD Unavailable Unavailable GALE, URBANO MD Unavailable Unavailable GALE, URBANO MD Unavailable Unavailable GALE, URBANO MD Unavailable Unavailable GALE, URBANO MD Unavailable Unavailable GALE, URBANO MD Unavailable Unavailable GALE, URBANO MD Unavailable Unavailable GALE, URBANO MD Unavailable Unavailable GALE, URBANO MD Unavailable Unavailable GALE, URBANO MD Unavailable Unavailable GALE, URBANO MD Unavailable Unavailable GALE, URBANO MD Unavailable Unavailable GALE, URBANO MD Unavailable Unavailable GALE, URBANO MD Unavailable Unavailable GALE, URBANO MD Unavailable Unavailable GALE, URBANO MD Unavailable Unavailable GALE, URBANO MD Unavailable Unavailable GALE, URBANO MD Unavailable Unavailable GALE, URBANO MD Unavailable Unavailable GALE, URBAON MD Unavailable Unavailable GALE, URBANO MD Unavailable Unavailable GALE, URBANO MD Unavailable Unavailable GALE, URBANO MD Unavailable Unavailable GALE, URBANO MD Unavailable Unavailable GALE, URBANO MD Unavailable Unavailable GALE, URBANO MD Unavailable Unavailable GALE, URBANO MD Unavailable Unavailable GALE, URBANO MD Unavailable Unavailable GALE, URBANO MD Unavailable Unavailable GALE, URBANO MD Unavailable Unavailable GALE, URBANO MD Unavailable Unavailable GALE, URBANO MD Unavailable Unavailable GALE, URBANO MD Unavailable Unavailable GALE, URBANO MD Unavailable Unavailable GALE, URBANO MD Unavailable Unavailable GALE, URBANO MD Unavailable Unavailable Ana LUNA MD Unavailable Unavailable Ana LUNA MD Unavailable Unavailable Ana LUNA MD Unavailable Unavailable Ana LUNA MD Unavailable Unavailable Ana LUNA MD Unavailable Unavailable Ana LUNA MD Unavailable Unavailable Ana LUNA MD Unavailable Unavailable Ana LUNA MD Unavailable Unavailable Ana LUNA MD Unavailable Unavailable Ana LUNA MD Unavailable Unavailable Ana LUNA MD Unavailable Unavailable Ana LUNA MD Unavailable Unavailable Ana LUNA MD Unavailable Unavailable Ana LUNA MD Unavailable Unavailable Ana LUNA MD Unavailable Unavailable Ana LUNA MD Unavailable Unavailable Ana LUNA MD Unavailable Unavailable Ana LUNA MD Unavailable Unavailable Ana LUNA MD Unavailable Unavailable Ana LUNA MD Unavailable Unavailable TESSAAna VEGA MD Unavailable Unavailable TESSAAna Wayne MD Unavailable Unavailable Ana LUNA MD Unavailable Unavailable Ana LUNA MD Unavailable Unavailable Ana LUNA MD Unavailable Unavailable Ana LUNA MD Unavailable Unavailable Ana LUNA MD Unavailable Unavailable Ana LUNA MD Unavailable Unavailable Ana LUNA MD Unavailable Unavailable Ana LUNA MD Unavailable Unavailable Ana LUNA MD Unavailable Unavailable Ana LUNA MD Unavailable Unavailable Ana LUNA MD Unavailable Unavailable Ana LUNA MD Unavailable Unavailable Ana LUNA MD Unavailable Unavailable Ana LUNA MD Unavailable Unavailable Ana LUNA MD Unavailable Unavailable Ana LUNA MD Unavailable Unavailable Ana LUNA MD Unavailable Unavailable Ana LUAN MD Unavailable Unavailable Ana LUNA MD Unavailable Unavailable Ana LUNA MD Unavailable Unavailable Ana LUNA MD Unavailable Unavailable Ana LUNA MD Unavailable Unavailable Ana LUNA MD Unavailable Unavailable Ana LUNA MD Unavailable Unavailable Ana LUNA MD Unavailable Unavailable Ana LUNA MD Unavailable Unavailable nAa LUNA MD Unavailable Unavailable Ana LUNA MD Unavailable Unavailable Ana LUNA MD Unavailable Unavailable Ana LUNA MD Unavailable Unavailable Ana LUNA MD Unavailable Unavailable Ana LUNA MD Unavailable Unavailable Ana LUNA MD Unavailable Unavailable Ana LUNA MD Unavailable Unavailable Ana LUNA MD Unavailable Unavailable Ana LUNA MD Unavailable Unavailable Ana LUNA MD Unavailable Unavailable Ana LUNA MD Unavailable Unavailable Ana LUNA MD Unavailable Unavailable Ana LUNA MD Unavailable Unavailable Ana LUNA MD Unavailable Unavailable Ana LUNA MD Unavailable Unavailable Ana LUNA MD Unavailable Unavailable Ana LUNA MD Unavailable Unavailable Ana LUNA MD Unavailable Unavailable Ana LUNA MD Unavailable Unavailable Ana LUNA MD Unavailable Unavailable Ana LUNA MD Unavailable Unavailable Ana LUNA MD Unavailable Unavailable Ana LUNA MD Unavailable Unavailable Ana LUNA MD Unavailable Unavailable Ana LUNA MD Unavailable Unavailable Ana LUNA MD Unavailable Unavailable Ana LUNA MD Unavailable Unavailable Ana LUNA MD Unavailable Unavailable Ana LUNA MD Unavailable Unavailable Ana LUNA MD Unavailable Unavailable Ana LUNA MD Unavailable Unavailable Ana LUNA MD Unavailable Unavailable Ana LUNA MD Unavailable Unavailable Ana LUNA MD Unavailable Unavailable Saldana, Tyree Unavailable Unavailable Saldana, Tyree Unavailable Unavailable Saldana, Tyree Unavailable Unavailable Saldana, Tyree Unavailable Unavailable Saldana, Tyree Unavailable Unavailable Saldana, Tyree Unavailable Unavailable Saldana, Tyree Unavailable Unavailable Saldana, Tyree Unavailable Unavailable Saldana, Tyree Unavailable Unavailable Saldana, Tyree Unavailable Unavailable Saldana, Tyree Unavailable Unavailable Saldana, Tyree Unavailable Unavailable Saldana, Tyree Unavailable Unavailable Saldana, Tyree Unavailable Unavailable Saldana, Tyree Unavailable Unavailable Saldana, Tyree Unavailable Unavailable Saldaan, Tyree Unavailable Unavailable Saldana, Tyree Unavailable Unavailable Saldana, Tyree Unavailable Unavailable Saldana, Tyree Unavailable Unavailable Saldana, Tyree Unavailable Unavailable Saldana, Tyree Unavailable Unavailable Saldana, Tyree Unavailable Unavailable Saldana, Tyree Unavailable Unavailable Saldana, Tyree Unavailable Unavailable Saldana, Tyree Unavailable Unavailable Saldana, Tyree Unavailable Unavailable Saldana, Tyree Unavailable Unavailable Saldana, Tyree Unavailable Unavailable Saldana, Tyree Unavailable Unavailable Saldana, Tyree Unavailable Unavailable Saldana, Tyree Unavailable Unavailable Saldana, Tyree Unavailable Unavailable Saldana, Tyree Unavailable Unavailable Saldana, Tyree Unavailable Unavailable Saldana, Tyree Unavailable Unavailable Saldana, Tyree Unavailable Unavailable Saldana, Tyree Unavailable Unavailable Saldana, Tyree Unavailable Unavailable Saldana, Tyree Unavailable Unavailable Saldana, Tyree Unavailable Unavailable Saldana, Tyree Unavailable Unavailable Saldana, Tyree Unavailable Unavailable Saldana, Tyree Unavailable Unavailable Francisca Lozada MD Unavailable Unavailable Francisca Lozada MD Unavailable Unavailable Francisca Lozada MD Unavailable Unavailable Francisca Lozada MD Unavailable Unavailable Francisca Lozada MD Unavailable Unavailable Francisca Lozada MD Unavailable Unavailable Francisca Lozada MD Unavailable Unavailable Francisca Lozada MD Unavailable Unavailable Francisca Lozada MD Unavailable Unavailable Francisca Lozada MD Unavailable Unavailable Bolyovani, Francisca Harris MD Unavailable Unavailable Bolla, Francisca Harris MD Unavailable Unavailable Bolla, Francisca Harris MD Unavailable Unavailable Bolla, Francisca Harris MD Unavailable Unavailable Bolla, Francisca Harris MD Unavailable Unavailable Bolla, Francisca Harris MD Unavailable Unavailable Bolla, Francisca Harris MD Unavailable Unavailable Bolla, Francisca Harris MD Unavailable Unavailable Bolla, Francisca Harris MD Unavailable Unavailable Bolla, Francisca Harris MD Unavailable Unavailable Bolla, Francisca Harris MD Unavailable Unavailable Bolla, Francisca Harris MD Unavailable Unavailable Bolla, Francisca Harris MD Unavailable Unavailable Bolla, Francisca Harris MD Unavailable Unavailable Bolla, Francisca Harris MD Unavailable Unavailable Bolla, Francisca Harris MD Unavailable Unavailable Bolla, Francisca Harris MD Unavailable Unavailable Bolyovani, Francisca Harris MD Unavailable Unavailable Bolla, Francisca Harris MD Unavailable Unavailable Bolyovani, Francisca Harris MD Unavailable Unavailable Bolla, Francisca Harris MD Unavailable Unavailable Bolyovani, Francisca Harris MD Unavailable Unavailable Bolla, Francisca Harris MD Unavailable Unavailable Bolyovani, Francisca Harris MD Unavailable Unavailable Bolla, Francisca Harris MD Unavailable Unavailable Bolyovani, Francisca Harris MD Unavailable Unavailable Bolla, Francisca Harris MD Unavailable Unavailable Bolyovani, Francisca Harris MD Unavailable Unavailable Bolyovani, Francisca Harris MD Unavailable Unavailable Bolyovani, Francisca Harris MD Unavailable Unavailable Bolyovani, Francisca Harris MD Unavailable Unavailable Bolyovani, Francisca Harris MD Unavailable Unavailable Bolyovani, Francisca Harris MD Unavailable Unavailable BolFrancisca pina MD Unavailable Unavailable BolFrancisca pina MD Unavailable Unavailable BolFrancisca pina MD Unavailable Unavailable Bolyovani, Francisca Harris MD Unavailable Unavailable BolFrancisca pina MD Unavailable Unavailable Rukhsana Parker [employer] MODEL [employer]ER [employer] TESTER OPT[employer] MODEL MAKER [employer] TESTER Unavailable Unavailable Rigoberto STOKES MD Unavailable Unavailable Rigoberto STOKES MD Unavailable Unavailable Rigoberto STOKES MD Unavailable Unavailable Rigoberto STOKES MD Unavailable Unavailable Rigoberto STOKES MD Unavailable Unavailable Rigoberto STOKES MD Unavailable Unavailable Rigoberto STOKES MD Unavailable Unavailable Rigoberto STOKES MD Unavailable Unavailable Rigoberto STOKES MD Unavailable Unavailable Rigoberto STOKES MD Unavailable Unavailable Rigoberto STOKES MD Unavailable Unavailable ZURI, L ALIYA MD Unavailable Unavailable ZURI, L ALIYA MD Unavailable Unavailable ZURI, L ALIYA MD Unavailable Unavailable ZURI, L ALIYA MD Unavailable Unavailable ZURI, L ALIYA MD Unavailable Unavailable ZURI, L ALIYA MD Unavailable Unavailable ZURI, L ALIYA MD Unavailable Unavailable ZURI, L ALIYA MD Unavailable Unavailable ZURI, L ALIYA MD Unavailable Unavailable ZURI, L ALIYA MD Unavailable Unavailable ZURI, L ALIYA MD Unavailable Unavailable ZURI, L ALIYA MD Unavailable Unavailable Re-disclosure Warning The records that you are about to access may contain information from federally-assisted alcohol or drug abuse programs. If such information is present, then the following federally mandated warning applies: This information has been disclosed to you from records protected by federal confidentiality rules (42 CFR part 2). The federal rules prohibit you from making any further disclosure of this information unless further disclosure is expressly permitted by the written consent of the person to whom it pertains or as otherwise permitted by 42 CFR part 2. A general authorization for the release of medical or other information is NOT sufficient for this purpose. The Federal rules restrict any use of the information to criminally investigate or prosecute any alcohol or drug abuse patient.The records that you are about to access may contain highly sensitive health information, the redisclosure of which is protected by Article 27-F of the [facility] Public Health law. If you continue you may have access to information: Regarding HIV / AIDS; Provided by facilities licensed or operated by the [facility] Office of Mental Health; or Provided by the [facility] Office for People With Developmental Disabilities. If such information is present, then the following [facility] mandated warning applies: This information has been disclosed to you from confidential records which are protected by state law. State law prohibits you from making any further disclosure of this information without the specific written consent of the person to whom it pertains, or as otherwise permitted by law. Any unauthorized further disclosure in violation of state law may result in a fine or long-term sentence or both. A general authorization for the release of medical or other information is NOT sufficient authorization for further disc losure. Family History Family Member Name Family Member Gender Family Member Status Date o f Status Description Data Source(s) Unknown Male Problem MEDENT ([facility] ) Unknown Male Problem MEDENT ([facility]) Unknown Male Diagnosis 06/14/2016 12:00:00 AM EDT [facility] ([facility]) Unknown Male Diagnosis 06/14/2016 12:00:00 AM EDT [facility] ([facility]) Unknown Female Problem [facility] ([facility]) Encounters Encounter Providers Location Date Indications Data Source(s ) Steven Lozada MD: [id number], [address], [place] [address], Ph. [phone] Attender: Steven Lozada MD [place] - [facility] 04/16/2020 12:00:00 AM EST MIRTHA ([facility]) Cathryn Villalobos, DOCK SUPERINTENDENT: [address], [place] [address], Ph. Attender: Cathryn Villalobos [facility] 04/01/2020 12:00:00 AM EST ATHE NA ([facility]) Cathryn Villalobos, DOCK SUPERINTENDENT: [address], [address], [place] [address], Ph. Attender: Cathryn Villalobos [facility] 04/01/2020 12:00:00 AM EST ATHE NA ([facility]) Outpatient Attender: Darien Gray MD [facility] 03/18/2020 09:15:00 AM EST MEDENT ([facility]) Cathryn Villalobos, DOCK SUPERINTENDENT: [address], [address], [place] [address], Ph. Attender: Cathryn Villalobos [facility] 03/04/2020 12:00:00 AM EST ATHE NA ([facility]) Cathryn Villalobos, DOCK SUPERINTENDENT: [address], [place] [address], Ph. Attender: Cathryn [place]GRETEP [place] - [facility] 03/04/2020 12:00:00 AM EST ATHE NA ([facility]) Cathryn Villalobos, DOCK SUPERINTENDENT: [address], [place] [address], Ph. Attender: Cathryn Villalobos [facility] - [facility] 03/04/2020 12:00:00 AM EST ATHE NA ([facility]) James Cornejo MD: [address] [place] [address], Ph. Attender: James Cornejo MD [facility] 02/15/2020 12:00:00 AM EST MIRTHA ([facility]) Cathryn Villalobos, DOCK SUPERINTENDENT: [address], [place] [address], Ph. Attender: Cathryn Pugamono [facility] 02/06/2020 12:00:00 AM EST ATHE NA ([facility]) Cathryn Villalobos, DOCK SUPERINTENDENT: [address], [place] [address], Ph. Attender: Cathryn Villalobos [facility] 02/06/2020 12:00:00 AM EST ATHE NA ([facility]) Cathryn Villalobos, DOCK SUPERINTENDENT: [address], [place] [address], Ph. Attender: Cathryn Villalobos [facility] 02/06/2020 12:00:00 AM EST ATHE NA ([facility]) Cathryn Villalobos, DOCK SUPERINTENDENT: [address], [place] [address], Ph. Attender: Cathryn Villalobos [employer] MODEL MAKER [employer] TESTER [place] - [facility] - Main Office 02/06/2020 12:00:00 AM EST ATHE NA ([facility]) Outpatient Attender: Darien Gray MD Main office - [place] 02/04/2020 11:15:00 AM EST MEDENT ([facility]) Outpatient Attender: James Cornejo MD FP 01/16/2020 01:11:01 PM EDT [facility] Outpatient Attender: James Cornejo MD 01/15/2020 12:01:02 PM EDT [facility] Outpatient Attender: James Cornejo MD FP 01/11/2020 12:35:02 PM EDT [facility] Outpatient Attender: James Cornejo MD FP 12/18/2019 09:46:01 AM EDT [facility] Outpatient Attender: James Cornejo MD FP 11/28/2019 08:03:01 AM EDT [facility] Outpatient Attender: James Cornejo MD FP 11/28/2019 08:02:01 AM EDT [facility] Outpatient Attender: James Cornejo MD FP 11/27/2019 04:10:01 PM EDT [facility] Outpatient Attender: James Cornejo MD FP 11/27/2019 04:10:00 PM EDT [facility] Outpatient Attender: James Cornejo MD FP 11/27/2019 11:43:00 AM EDT [facility] Outpatient Attender: James Cornejo MD FP 11/26/2019 08:23:00 AM EDT [facility] Outpatient Attender: James Cornejo MD FP 11/24/2019 12:02:22 AM EDT [facility] Outpatient Attender: James Cornejo MD FP 11/23/2019 03:48:01 PM EDT [facility] Outpatient Attender: James Cornejo MD FP 11/23/2019 03:47:00 PM EDT [facility] Outpatient Attender: James Cornejo MD FP 11/23/2019 03:42:01 PM EDT [facility] Outpatient Attender: James Cornejo MD FP 11/23/2019 01:54:00 PM EDT [facility] Outpatient Attender: James Cornejo MD FP 11/23/2019 01:28:00 PM EDT [facility] Outpatient Attender: James Cornejo MD FP 11/23/2019 12:57:01 PM EDT [facility] Outpatient Attender: James Cornejo MD FP 11/20/2019 03:02:01 PM EDT [facility] Outpatient Attender: James Cornejo MD FP 11/14/2019 02:49:02 PM EDT [facility] Outpatient Attender: James Cornejo MD FP 11/07/2019 11:03:01 AM EDT [facility] Outpatient Attender: ANGELA YOUNG [facility] Office 10/04 08:45:00 AM EDT MEDENT ([facility] Outpatient Attender: James Cornejo MD FP 10/26/2019 04:40:02 PM EDT [facility] Outpatient Attender: James Cornejo MD FP 10/26/2019 10:37:53 AM EDT [facility] Outpatient Attender: ANGELA YOUNG [facility] 10/03 08:45:00 AM EDT MEDENT ([facility] Outpatient Attender: James Cornejo MD FP 10/22/2019 12:09:01 PM EDT [facility] Outpatient Attender: James Cornejo MD FP 10/17/2019 10:39:00 AM EDT [facility] Outpatient Attender: James Cornejo MD FP 10/17/2019 10:38:00 AM EDT [facility] Outpatient Attender: James Cornejo MD FP 09/28/2019 03:58:01 PM EDT [facility] Outpatient Attender: James Cornejo MD FP 09/28/2019 03:58:00 PM EDT [facility] Outpatient Attender: James Cornejo MD FP 09/28/2019 02:18:00 PM EDT [facility] Outpatient Attender: James Cornejo MD FP 09/26/2019 08:32:01 AM EDT [facility] Outpatient Attender: James Cornejo MD FP 09/22/2019 12:53:01 PM EDT [facility] Outpatient Attender: James Cornejo MD FP 09/22/2019 12:53:01 PM EDT [facility] Outpatient Attender: James Cornejo MD FP 09/22/2019 12:52:01 PM EDT [facility] Outpatient Attender: James Cornejo MD FP 09/22/2019 12:52:01 PM EDT [facility] Outpatient Attender: ANGELA YOUNG [facility] 09/02 08:45:00 AM EDT MEDENT ([facility] Outpatient Attender: James Cornejo MD FP 09/20/2019 12:02:17 AM EDT [facility] Outpatient Attender: James Cornejo MD FP 09/19/2019 08:56:01 AM EDT [facility] Outpatient Attender: James Cornejo MD FP 09/19/2019 08:08:00 AM EDT [facility] Outpatient Attender: JT WATERS FP 09/11/2019 07:58:38 P M EDT [facility] Outpatient Attender: JT WATERS FP 09/03/2019 02:24:00 P M EDT [facility] Outpatient Attender: JT WATERS FP 08/09/2019 10:22:01 A M EDT [facility] Outpatient Attender: Rukhsana WATERS FP 08/09/2019 10:2 2:00 AM EDT [facility] Outpatient Attender: JT WATERS FP 08/09/2019 09:30:00 A M EDT [facility] Outpatient Attender: JT WATERS FP 08/09/2019 09:29:00 A M EDT [facility] Outpatient Attender: JT WATERS FP 08/07/2019 11:30:01 A M EDT [facility] Recurring Patient Referrer: JOJO LUNA MD 08/06/2019 09: 58:55 AM EDT [facility] Outpatient Attender: Rukhsana WATERS FP 08/06/2019 12:1 6:01 AM EDT [facility] Outpatient Attender: JT WATERS FP 08/06/2019 12:16:00 A M EDT [facility] Outpatient Attender: JT WATERS FP 08/02/2019 12:50:02 P M EDT [facility] Outpatient Attender: Rukhsana WATERS FP 08/02/2019 12:4 9:00 PM EDT [facility] Outpatient Attender: Rukhsana WATERS FP 08/02/2019 12:4 4:07 PM EDT [facility] Outpatient Attender: Rukhsana WATERS FP 07/30/2019 10:3 2:01 AM EDT [facility] Emergency Attender: ALIYA ZURI MDConsultant: URBANO Franklin MD 07/28/2019 12:00:00 PM EDT - 07/28/2019 02:05:00 PM EDT [facility] Patient discharged. Outpatient Attender: JT WATERS FP 07/03/2019 12:46:00 P M EDT [facility] Recurring Patient Referrer: JOJO LUNA MD 07/03/2019 08: 29:47 AM EDT [facility] Outpatient Attender: JT WATERS FP 07/02/2019 10:37:00 A M EDT [facility] Outpatient Attender: Rukhsana WATERS FP 06/27/2019 04:2 7:01 PM EDT [facility] Outpatient Attender: JT WATERS FP 06/27/2019 02:58:01 P M EDT [facility] Outpatient Attender: Rukhsana WATERS FP 06/27/2019 02:5 7:02 PM EDT [facility] Outpatient Attender: Rukhsana WATERS FP 06/27/2019 02:1 2:02 PM EDT [facility] Outpatient Attender: JT WATERS FP 06/27/2019 02:12:01 P M EDT [facility] Outpatient Attender: JOJO LUNA MDConsultant: URBANO Franklin MD 06/27/2019 06:47:00 AM EDT [facility] Outpatient Attender: JT WATERS FP 06/22/2019 03:40:00 P M EDT [facility] Outpatient Attender: JOJO LUNA MD FP 06/22/2019 03:27:01 P M EDT [facility] Outpatient Attender: JOJO LUNA MD FP 06/22/2019 03:27:01 P M EDT [facility] Outpatient Attender: JOJO LUNA MD FP 06/20/2019 11:28:00 A M EDT [facility] Outpatient Attender: JOJO LUNA MD FP 06[facility]20[facility]: [facility] MD 06/10/2019 02:44:00 P [facility] Outpatient Attender: JOJO LUNA MD 06/07/2019 02:56:00 P [facility] Outpatient Attender: JOJO LUNA MD 06/06/2019 11:21:00 A [facility] Outpatient Attender: JOJO LUNA MD 06/06/2019 11:20:01 A [facility] Outpatient Attender: JOJO LUNA MD 06/06/2019 10:46:00 A [facility] Outpatient Attender: JOJO LUNA MD 06/03/2019 07:21:01 P [facility] Outpatient Attender: JOJO LUNA MD 05/30/2019 03:14:02 P [facility] Outpatient Attender: JOJO LUNA MD 05/30/2019 01:49:01 P [facility] Outpatient Attender: SORAIDA HUTCHINSON MDReferrer: JOJO ENGLE MD 05/30/2019 07:54:42 AM EST [facility] Outpatient Attender: Tyree Sald[facility] 05/30/2019 07:30:0 0 AM EST [facility] ([facility]) Outpatient Attender: ANGELA YOUNG [facility] 05/06 09:15:00 AM EST [facility] ([facility] Outpatient Attender: JOJO LUNA MD 05/18/2019 01:29:00 P [facility] Outpatient Attender: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 [facility] ([facility]) ID Date Data Source [id number] 02/04/2020 12:47:00 PM EST [facility] Name Value Range Interpretation Code Description Data Colette rce(s) Supporting Document(s) PTT Lupus Type Anticoag Screen 1.0 0-1.2 [facility] ([facility]) RESULT IS LESS THAN 1.2, NO FURTHER TEST ING INDICATED. INTERPRETATION This test is to screen [...] coagulation factor deficiency or a specific inhibitor. ID Date Data Source [id number] 02/04/2020 12:47:00 PM EST [facility] Name Value Range Interpretation Code Description Data Colette rce(s) Supporting Document(s) Hemoglobin A1c 5.3 % [facility] ([facility]) <content>REFERENCE RANGES:</content><br/ ><content></content>
<content><=5.6% NORMAL</content>
<content>5.7-6.4% SUGGESTS IMPAIRED GLUCOSE METABOLISM/PREDIABETIC</content>
<content>>= 6.5% ABNORMAL</content>
<content></content> Estimated Average Glucose 105 mg/dL 60-110 [facility] ([facility]) ID Date Data Source [id number] 02/04/2020 12:47:00 PM EST [facility] Name Value Range Interpretation Code Description Data Colette rce(s) Supporting Document(s) Erythrocyte sedimentation rate by 2H Westergren method 4 mm/hr 0-2 0 [facility] ([facility]) ID Date Data Source [id number] 01/11/2020 11:46:55 AM EDT [facility] Measurements & CalculationsHeight: 66 inches (5 ft. 6 in.) 167.64 cm Weight: 193.6 pounds 88 kg Body Mass Index (BMI): 31.36BMI Interpretation: ObeseBody Surface Area (BSA): 1.97Weight Management Education Done (Nutrition/Physical Activity)Vital SignsTemperature: 97.7FPulse Rate: 87 beats/minuteRespiratory Rate: 16 respirations/minuteBlood Pressure: 130/91 O2 Saturation: 97% Vital Signs performed by: Danitza Best MA, January 11, 2020 12:03 PMVital Signs performed by: Danitza Best MA, January 11, 2020 12:03 PMInitial Intake Information From: patientRoom #: 14Infectious Disease / Travel ScreeningRecent travel for you or any close contacts? NoHave you had any close contact with anyone diagnosed with or under investigation for COVID-19 (coronavirus)? NoFever? NoRespiratory symptoms: cough, cold, congestion, shortness of breath, difficulty breathing? NoLoss of smell? NoLoss of taste? NoSmoking, Tobacco, Vaping or Smoke Exposure StatusSmoke Status: current every day smokerTobacco Use: YesAdv to Quit: YesDo you vape? NoPassive Smoke Exposure: YesPassive Smoke Exposure comments: roommateHealthcare HistorySince your last office visit...Have you been admitted to the hospital? NoHave you been to an emergency room (ER) or urgent care clinic? No - [facility] ([facility]) or urgent care date reported today: 10/21/2019Have you seen another healthcare provider? Yes - [facility] date reported today: 10/25/2019Have you seen a dentist? Yes - [facility]CFHCIntake performed by: Danitza Best MA, January 11, 2020 11:51 AMRate Your HealthIn general, would you say your health is? GoodPain AssessmentAre you currently having any pain which... You would like your provider to address? Yes Affects your activity level? YesDepression Screening - PHQ-2Over the last two weeks, have you... Had little interest or pleasure in doing things? Several days Been feeling down, depressed, or hopeless? Several days PHQ-2 Score: 2Anxiety Screening - ARNEL-2Over the last two weeks, have you been... Feeling nervous, anxious, or on edge? Nearly every day Unable to stop or control worrying? Not at all ARNEL-2 Score: 3Food InsecurityWithin the past year...Did you worry whether your food would run out before you got money to buy more? Never trueWas there a time when the food you bought didn't last and you didn't have money to get more? Never trueGeneralized Anxiety Disorder 7-Item Screening (ARNEL-7)Answer Guide:0 = Not at all1 = Several days2 = Over half the days3 = Nearly every dayOver the last 2 weeks, how often have you been bothered by the following problems?Feeling nervous, anxious, or on edge: 3Not being able to stop or control worryinWorrying too much about different things: 3Trouble relaxinBeing so restless that it's hard to sit still: 3Becoming easily annoyed or irritable: 3Feeling afraid as if something awful might happen: 0Answer Guide:0 = Not difficult at all1 = Somewhat difficu lt2 = Very difficult3 = Extremely difficultHow difficult have these made it for you to do your work, take care of things at home, or get along with other people? 1GAD-7 Screening Results ARNEL-2 Score: 3GAD-7 Score: 15Functional Impairment: Somewhat difficultRecommendation: Severe anxietyPHQ-9 1. Over the last 2 weeks, patient reports the following frequency of symptoms: a. Little interest or pleasure in doing things -Several days b. Feeling down, depressed, or hopeless -Several days c. Trouble falling asleep, staying asleep, or sleeping too much -Nearly every day d. Feeling tired or having little energy -Not at all e. Poor appetite or overeating -Not at all f. Feeling bad about yourself, feeling that you are a failure, or feeling that you have let yourself or your family down -Not at all g. Trouble concentrating on things such as reading the newspaper or watching television -Not at all h. Moving or speaking so slowly that other people could have noticed. Or being so fidgety or restless that you have been moving around a lot more than usual -Not at all i. Thinking that you would be better off or that you want to hurt yourself in some way -Not at all2. If you checked off any problems, how difficult have these problems made it for you to do your work, take care of things at home, or get along with other people? -Not Difficult at AllToday's PHQ-9 Results Score: 5 Severity: Mild Diagnosis Recommendation: No recommendation Functional Impairment: Not Difficult at AllPain AssessmentPain ScaleNumeric Rating Scale: 10 / 10Location: legsDuration: chronicFrequency: DailyCharacter/Quality: aching, dull, throbbing and pressureIs the pain radiating? YesTo what body part(s) is the pain radiating? lower back down the legsScreening, Brief Intervention, & Referral to Treatment (SBIRT)Pre-Screening Questions How many times have you have 5 or more drinks in a day? 0How many times have you used an illegal drug or used a prescription medication for a non-medical reason? 365Performed by: Danitza Best MA, January 11, 2020 11:57 AMPatient History Medical History:ddd Surgical History:Lymph node removed javier shoulder surgery Family History:father-msSocial/Personal History: Advised to Quit/Tobacco Education: YesChief Complaintfollow-up visit anx / meds room 14History of Present Illness (HPI)49 YO male here for med/ anxiety follow up. Pt is having pain in lower back and legs. Pt would like referral for colonoscopy. Pt had what might be a cyst in his right wrist that popped this week. Cyst in right hand for the past 4 months. Decreasing in size over the past week or so.Took the duloxetine for 2 weeks and then stopped taking it. Did not cause any adverse effects and did not notice a difference. Still waiting to hear from neurology about his first appointment.Several months since last Ortho visit. Feels that they do not have much to offer.HPI performed by: James Cornejo MD, January 11, 2020 12:05 PMTransitions of Care InboundProblem ReviewProblem List was reviewed and/or up dated during this visit.Medication Reconciliation & ReviewMedication List was reviewed and/or updated during this visit, including review of any hjtt-sfn-kndcjii medications, herbal therapies, and/or supplements.Allergy ReviewAllergy List was reviewed and/or updated during this visit.Adult Preventive CareProvider Calculated and Reviewed all Clinical Protocols for patient today. Screening Tobacco Screening: Smoking Status: current every day smoker (01/11/2020) Tobacco Use: Currently (01/11/2020) Advised to Quit: Yes (01/11/2020)Labs/Meds/Other Counseling-Nutrition and Physical Activity:BMI In terpretation: Obese (01/11/2020) Counseling: Done (01/11/2020) Physical Activity: Done (01/11/2020)Review of Systems General: Denies dizziness, fatigue. Cardiovascular: Denies chest pain. Respiratory: Denies shortness of breath. Gastrointestinal: Denies diarrhea, constipation. Genitourinary: Denies burning with urination, urinary frequency, urinary urgency, incomplete emptying. Physical ExamGeneral Appearance: well nourished, well hydrated, no acute distressRespiratory, Auscultation: clear to auscultation bilaterally; no rales, rhonchi, or wheezesRespiratory, Effort: no intercostal retractions or use of accessory musclesCardiovascular, Auscultation: S1, S2 audible; no murmur, rub, or gallop; RRRGait & Station: normalSkin, Inspection: no rashes, lesions, or ulcerationsOrientation: oriented to time, place, and personMood & Affect: no depression, anxiety, or agitationJudgment & Insight: intactCare Management Plan Transitions of CareInboundRate Your HealthIn general, would you say your health is? GoodAssessment & Plan Problems:Assessed:Sprain of ligaments of cervical spine, initial encounter (ICD-847.0) (NTD13-J17.4xxA) Assessment: Instructions: Check X ray of cervical spine and refer to pain clinic for this as well as the low back pain.I still think that cymbalta may be helpful for the pain and the anxiety and that we did not give it enough of a trial. He is reluct ant to take this or any other medication.Low back pain (ICD-724.2) (GBR14-Z44.5) Assessment: Instructions: Check X ray and refer to pain clinic.Patient Instructions/Care Plan: Sprain of ligaments of cervical spine- initial encounter: Check X ray of cervical spine and refer to pain clinic for this as well as the low back pain.I still think that cymbalta may be helpful for the pain and the anxiety and that we did not give it enough of a trial. He is reluctant to take this or any other medication.Low back pain: Check X ray and refer to pain clinic. Plan developed in collaboration with patient and/or familyMedications:GABAPENTIN 800 MG ORAL TABLETMedication Changes:Removed:DULOXETINE HCL 60 MG ORAL CAPSULE DELAYED RELEASE PARTICLES-One tablet by mouth every day Qty: 30[Capsule] Refills: 2, KETOROLAC TROMETHAMINE 10 MG ORAL TABLET-One po q8h prn pain. MDD 3. Qty: 30[Tablet] Refills: 1, HYDROCORTISONE ACETATE 25 MG RECTAL SUPPOSITORY-one supp MT qhs prn hemorrhoidsAllergies:PENICILLIN (Critical)Orders:X-Ray - Spine, cervical, minimum of 4 views (C5) [CPT-02318] X-Ray - Spine, lumbrosacral, minimum of 4 views (L4) [CPT-89529] Adult - Ofc Vst, EST, Level III [CPT-28546] Pain Management Consult [CPT-12244] Medications:Cancelled KETOROLAC TROMETHAMINE 10 MG ORAL TABLET (KETOROLAC TROMETHAMINE) One po q8h prn pain. MDD 3. #30[Tablet] x 1 Route:ORAL Entered by: Danitza Best MA Authorized by: James Cornejo MD Method used: Electronically to [facility] (retail) [address] [place] [address] Ph: RxID: [id number] DULOXETINE HCL 60 MG ORAL CAPSULE DELAYED RELEASE PARTICLES (DULOXETINE HCL) One tablet by mouth every day #30[Capsule] x 2 Route:ORAL Entered by: Danitza Best MA Authorized by: James Cornejo MD Method used: Electronically to [facility] (retail) [address] [place] [address] Fax: RxID: [id number] signed by James Cornejo MD on 01/11/2020 at 12:34 PM Name Value Range Interpretation Code Description Data Colette rce(s) Supporting Document(s) ID Date Data Source [id number] 11/27/2019 11:43:28 AM EDT [facility] Measurements & CalculationsHeight: 66 inches (5 ft. 6 in.) 167.64 cm Weight: 189 pounds 2 oz. 85.97 kg Body Mass Index (BMI): 30.64BMI Interpretation: ObeseBody Surface Area (BSA): 1.95Weight Management Education Done (Nutrition/Physical Activity)Vital SignsTemperature: 97.3FPulse Rate: 81 beats/minuteRespiratory Rate: 16 respirations/minuteBlood Pressure: 134/77 O2 Saturation: 98% Vital Signs performed by: Mariaa Moyer MA, November 27, 2019 11:51 AMInitial Intake Information From: patientRoom #: 13Infectious Disease / Travel ScreeningRecent travel for you or any close contacts? NoHave you had any close contact with anyone diagnosed with or under investigation for COVID-19 (coronavirus)? NoFever? NoRespiratory symptoms: cough, cold, congestion, shortness of breath, difficulty breathing? NoLoss of smell? NoLoss of taste? NoSmoking, Tobacco, Vaping or Smoke Exposure StatusSmoke Status: current every day smokerTobacco Use: YesAdv to Quit: YesDo you vape? NoHealthcare HistorySince your last office visit...Have you been admitted to the hospital? NoHave you been to an emergency room (ER) or urgent care clinic? No - [facility] ([facility]) or urgent care date reported today: 10/21/2019Have you seen another healthcare provider? Yes - [facility]Have you seen a dentist? No - [facility]CFHCIntake performed by: Mariaa Moyer MA, November 27, 2019 11:49 AMRate Your HealthIn general, would you say your health is? GoodPain AssessmentAre you currently having any pain which... You would like your provider to address? Yes Aff ects your activity level? YesDepression Screening - PHQ-2Over the last two weeks, have you... Had little interest or pleasure in doing things? Not at all Been feeling down, depressed, or hopeless? Not at all PHQ-2 Score: 0Anxiety Screening - ARNEL-2Over the last two weeks, have you been... Feeling nervous, anxious, or on edge? Not at all Unable to stop or control worrying? Not at all ARNEL-2 Score: 0Pain AssessmentPain ScaleNumeric Rating Scale: 5 / 10Location: neckDuration: chronic Frequency: DailyCharacter/Quality: pinchingIs the pain radiating? NoScreening, Brief Intervention, & Referral to Treatment (SBIRT)Pre-Screening Questions How many times have you have 5 or more drinks in a day? 0How many times have you used an illegal drug or used a prescription medication for a non-medical reason? 0Performed by: Mariaa Moyer MA, November 27, 2019 11:50 AMPatient History Medical History:ddd Surgical History:Lymph node removed javier shoulder surgery Family History:father-msSocial/Personal History: Advised to Quit/Tobacco Education: YesChief Complaintchronic neck pain History of Present Illness (HPI)would like referral for colonoscopy for screening.Had been started on methacarbamol for pain but does not feel that this helps his leg pain, neck or arm pain at all. Gabapentin does not help the leg pain but does help the neck pain. Has seen neuro in the past but has not seen them in a while. Having issues with anxiety for a while and woud like to try medications. No thoughts of self harm.HPI performed by: James Cornejo MD, November 27, 2019 4:03 PMTransitions of Care InboundProblem ReviewProblem List was reviewed and/or updated during this visit.Medication Reconciliation & ReviewMedication List was reviewed and/or updated during this visit, including review of any vcpq-jfu-mbkuppr medications, herbal therapies, and/or supplements.Allergy ReviewAllergy List was reviewed and/or updated during this visit.Adult Preventive CareProvider Calculated and Reviewed all Clinical Protocols for romel ent today. Screening Tobacco Screening: Smoking Status: current every day smoker (11/27/2019) Tobacco Use: Currently (11/27/2019) Advised to Quit: Yes (11/27/2019)Labs/Meds/Other Counseling-Nutrition and Physical Activity:BMI Interpretation: Obese (11/27/2019) Counseling: Done (11/27/2019) Physical Activity: Done (11/27/2019)Cancer Screening ColonoscopyReviewed:Today's Comments: 5 years ago in [place] [facility] Review of Systems General: Denies dizziness, fatigue. Cardiovascular: Denies chest pain. Respiratory: Denies shortness of breath. Gastrointestinal: Denies constipation. Genitourinary: Denies pain with urination, urinary frequency, urinary urgency, incomplete emptying. Physical ExamGeneral Appearance: well nourished, well hydrated, no acute distressRespiratory, Auscultation: clear to auscultation bilaterally; no rales, rhonchi, or wheezesRespiratory, Effort: no intercostal retractions or use of accessory musclesCardiovascular, Auscultation: S1, S2 audible; no murmur, rub, or gallop; RRRGait & Station: normalSkin, Inspection: no rashes, lesions, or ulcerationsOrientation: oriented to time, place, and personMood & Affect: no depression, anxiety, or agitationJudgment & Insight: intactCare Management Plan Transitions of CareInboundRate Your HealthIn general, would you say your health is? GoodAssessment & Plan Problems:Added: Generalized anxiety disorder (OLJ10-J39.1) Assessment: Instructions: Trial of duloxetine. I recommended low dose 30 mg but he would like to start the higher dose because he has a tolerance to medications. He is aware that there is a risk of adverse effects at the higher dose.This may help with both the anxiety and pain.Assessed:Polyneuropathy in diseases classified elsewhere (EAA89-F27) Assessment: Instructions: Refer back to neurology.Patient Instructions/Care Plan: Polyneuropathy in diseases classified elsewhere: Refer back to neurology.Generalized anxiety disorder: Trial of duloxetine. I recommended low dose 30 mg but he would like to start the higher dose because he has a tolerance to medications. He is aware that there is a risk of adverse effects at the higher dose.This may help with both the anxiety and pain. Plan developed in collaboration with patient and/or familyMedications:DULOXETINE HCL 60 MG ORAL CAPSULE DELAYED RELEASE PARTICLESKETOROLAC TROMETHAMINE 10 MG ORAL TABLETHYDROCORTISONE ACETATE 25 MG RECTAL SUPPOSITORYGABAPENTIN 800 MG ORAL TABLETMedication Changes:Refilled:DULOXETINE HCL 60 MG ORAL CAPSULE DELAYED RELEASE PARTICLES-One tablet by mouth every day Qty: 30[Capsule] Refills: 2 Method: ElectronicNew Prescription:DULOXETINE HCL 30 MG ORAL CAPSULE DELAYED RELEASE PARTICLES-One tablet by mouth every day Qty: 30[Capsule] Refills: 2 Method: ElectronicRemoved:METHOCARBAMOL 750 MG ORAL TABLET-take one tablet by mouth daily as needed. Qty: 30[Tablet] Refills: 2, CYCLOBENZAPRINE HCL 10 MG ORAL TABLET-one tab po TID prn spasm Qty: 30[Tablet] Refills: 1Changed:From: ORAL DULOXETINE HCL 30 MG ORAL CAPSULE DELAYED RELEASE PARTICLES Qty: [id number] Refills: 30[Capsule] To: DULOXETINE HCL 60 MG ORAL CAPSULE DELAYED RELEASE PARTICLES-One tablet by mouth every day Qty: 30[Capsule] Refills: 2Allergies:PENICILLIN (Critical)Orders:Neurology Consult [CPT-95887] Adult - Ofc Vst, EST, Level III [CPT-28550] Follow-Up Return to clinic: 1-2 months. Medications:DULOXETINE HCL 60 MG ORAL CAPSULE DELAYED RELEASE PARTICLES (DULOXETINE HCL) One tablet by mouth every day #30[Capsule] x 2 Route:ORAL Entered and Authorized by: James Cornejo MD Method used: Electronically to [facility] (retail) [address] [place] [address] Fax: Note to Pharmacy: Route: ORAL; RxID: [id number] HCL 30 MG ORAL CAPSULE DELAYED RELEASE PARTICLES (DULOXETINE HCL) One tablet by mouth every day #30[Capsule] x 2 Route:ORAL Entered and Authorized by: James Cornejo MD Method used: Electronically to [facility] (retail) [address] [place] [address] Note to Pharmacy: Route: ORAL; RxID: [id number] CYCLOBENZAPRINE HCL 10 MG ORAL TABLET (CYCLOBENZAPRINE HCL) one tab po TID prn spasm #30[Tablet] x 1 Route:ORAL Entered and Authorized by: James Cornejo MD Method used: Electronically to [facility] (retail) [address] [place] [address] RxID: [id number] METHOCARBAMOL 750 MG ORAL TABLET (METHOCARBAMOL) take one tablet by mouth daily as needed. #30[Tablet] x 2 Route:ORAL Entered and Authorized by: James Cornejo MD Method used: Electronically to [facility] (retail) [address] [place] [address] RxID: [id number] signed by James Cornejo MD on 11/27/2019 at 4:09 PM Name Value Range Interpretation Code Description Data Colette rce(s) Supporting Document(s) ID Date Data Source [id number] 11/23/2019 01:26:05 PM EDT [facility] Patient History Medical History:ddd Fami ly History:father-msSocial/Personal History: Smoking Status: current every day smokerCurrent Problems: Sprain of ligaments of cervical spine, initial encounter (ICD-847.0) (GRG31-T68.4xxA)Right thoracic outlet syndrome (GTX93-U85.0)Laceration without foreign body of left middle finger with damage to nail, subsequent encounter (YIT16-W10.313D)External hemorrhoids without mention of complication (ICD-455.3) (YIG07-X44.4)Spasm of right piriformis muscle (AVF50-H54.838)Neutrophilia (ICD-288.2) (ICD10- D72.0)Other hyperlipidemia (ZCA23-E63.49)Elevated blood-pressure reading, without diagnosis of hypertension (ICD-796.2) (RFC63-R93.0)Nicotine dependence, unspecified, uncomplicated (BON92-S10.200)Peripheral neuropathic pain (ICD- 729.2) (CXK03-L99.2)Polyneuropathy in diseases classified elsewhere (ICD10- G63)Routine general medical examination at a health care facility (ICD-V70.0) (PXC23-E59.00)Pain in unspecified hand (ICD-729.5) (IXB91-D03.643)Tobacco use (ICD-305.1) (HTM40-H40.0)Shoulder pain, right, chronic (ICD-719.41) (ICD10- M25.511)Shoulder pain, left, chronic (ICD-719.41) (GKS88-B30.512)Low back pain (ICD-724.2) (ISQ88-C12.5)Neck pain (ICD-723.1) (HMK80-C52.2)Current Medications: KETOROLAC TROMETHAMINE 10 MG ORAL TABLET (KETOROLAC TROMETHAMINE) One po q8h prn pain. MDD 3.; Route: ORALHYDROCORTISONE ACETATE 25 MG RECTAL SUPPOSITORY (HYDROCORTISONE ACETATE) one supp MT qhs prn hemorrhoids; Route: RECTALCYCLOBENZAPRINE HCL 10 MG ORAL TABLET (CYCLOBENZAPRINE HCL) one tab po TID prn spasm; Route: ORALMETHOCARBAMOL 750 MG ORAL TABLET (METHOCARBAMOL) take one tablet by mouth daily as needed.; Route: ORALGABAPENTIN 800 MG ORAL TABLET (GABAPENTIN) One po bid; Route: ORALCurrent Allergies: PENICILLIN (Critical)Past Medical History:(reviewed - no changes required) ddd Dental Chart: Procedures:Type - CDT Code - Description B - (D0120) Periodic oral evaluation - established patient (Performed by Tatum Hernandez DMD) B - (D0330) Panoramic film (Performed by Kelsy Cedeno) B - (D1110) Prophylaxis, adult (Performed by Kelsy Cedeno) Chart Notes:marquez (Nov 23 2019 3:40PM): [facility](-). CC: none. Reviewed Xrays. Exam: no caries detected. OCS: WNL, IO/ EO completed, No significant hard findings upon clinical exam.Additional PPE requirements due to COVID-19 in the dental setting, N95, surgical mask, hair covering, gown and shieldPt was cooperative. OHI given Referral: N/A NV:Kelsy Natarajan by marquez (11/23/2019 3:40 PM): ; kiera (Nov 23 2019 2:19PM): [facility]- no changes )cc-NoneAdditional PPE requirements due to COVID-19 in the dental setting, N95, surgical mask, hair covering, gown. Adult prophy - handscaled, polished with rotary cup, flossed PANOH-goodPatient reported brushing twice/day, not flossing and uses listerine mouthwash Trace marginal biofilm with trace marginal and interproximal calculus in sextant 5Used hand instruments. Gingival recession on linguals og alena lower anteriors Tissues- mild bleeding on flossingOHI-brushing am pm, flossing and then using Listerine zero total carePatient was cooperativeNV-6 months Kelsy Natarajan (11/23/2019 2:19 PM): Tooth Notes and Watches:- Tooth 30 Watch: Kelsy Ferris by kiera (11/23/2019 1:41 PM): - Tooth 8 Note: RTC and crown done as a child; trauma related. Sade [place] [facility] by luz marina (02/20/2019 1:11 PM): Assessment & Plan Medications:KETOROLAC TROMETHAMINE 10 MG ORAL TABLETHYDROCORTISONE ACETATE 25 MG RECTAL SUPPOSITORYCYCLOBENZAPRINE HCL 10 MG ORAL TABLETMETHOCARBAMOL 750 MG ORAL TABLETGABAPENTIN 800 MG ORAL TABLETAllergies:PENICILLIN (Critical) Name Value Range Interpretation Code Description Data Colette rce(s) Supporting Document(s) ID Date Data Source [id number] 10/26/2019 11:01:58 AM EDT [facility] Measurements & CalculationsHeight: 66 inches (5 ft. 6 in.) 167.64 cm Weight: 181 pounds 82.27 kg Body Mass Index (BMI): 29.32BMI Interpretation: OverweightBody Surface Area (BSA): 1.92Vital SignsTemperature: 98.0F 36.67C tympanic Pulse Rate: 89 beats/minuteRespiratory Rate: 16 respirations/minuteBlood Pressure: 123/83 right arm sitting automaticVital Signs performed by: Laura Marte , October 26, 2019 11:09 AMInitial Intake Information From: patientRoom #: 14Infectious Disease / Travel ScreeningRecent travel for you or any close contacts? NoHave you had any close contact with anyone diagnosed with or under investigation for COVID-19 (coronavirus)? NoFever? NoRespiratory symptoms: cough, cold, congestion, shortness of breath, difficulty breathing? NoLoss of smell? NoLoss of taste? NoSmoking, Tobacco, Vaping or Smoke Exposure StatusSmoke Status: current every day smokerTobacco Us e: YesAdv to Quit: YesDo you vape? NoHealthcare HistorySince your last office visit...Have you been admitted to the hospital? NoHave you been to an emergency room (ER) or urgent care clinic? Yes - [facility] or urgent care date reported today: 10/21/2019Have you seen another healthcare provider? Yes [facility] date reported today: 10/25/2019Intake performed by: Laura Marte , October 26, 2019 11:05 AMRate Your HealthIn general, would you say your health is? FairPain AssessmentAre you currently having any pain which... You would like your provider to address? No Affects your activity level? NoDepression Screening - PHQ-2Over the last two weeks, have you... Had little interest or pleasure in doing things? Not at all Been feeling down, depressed, or hopeless? Not at all PHQ-2 Score: 0Anxiety Screening - ARNEL- 2Over the last two weeks, have you been... Feeling nervous, anxious, or on edge? Not at all Unable to stop or control worrying? Not at all ARNEL-2 Score: 0Screening, Brief Intervention, & Referral to Treatment (SBIRT)Pre-Screening Questions How many times have you have 5 or more drinks in a day? 0How many times have you used an illegal drug or used a prescription medication for a non- medical reason? 0Performed by: Laura Marte , October 26, 2019 11:05 AMPatient History Medical History:ddd Surgical History:Lymph node removed javier shoulder surgery Family History:father-msSocial/Personal History: Advised to Quit/Tobacco Education: YesChief ComplaintER follow up, Back painHistory of Present Illness (HPI)Has had chronic mid lumbar pain on and off for a while. Non radiaiting. Worse lately but generally comes and goes. Good relief with keotrolac. No leg pain. No numbness and tingling. Has done PT in the past and this made it worse.Has seen Ortho in the past and they did not think they had anything to offer per aptient.He is wondering about his labs today. They look OK.Chronic neck pain. Has seen a surgeon in the past for this and they did not want to do surgery until he was 64 for reasons that are not clear. Pain is currently under good control with current combination of medications.HPI performed by: James Cornejo MD, October 26, 2019 11:16 AMTransitions of Care InboundMedication Reconciliation & ReviewMedication List was reviewed and/or updated during this visit, including review of any eolt-jip-pkxmyzg medications, herbal therapies, and/or supplements.Allergy ReviewAllergy List was reviewed and/or updated during this visit.Adult Preventive CareProvider Calculated and Reviewed all Clinical Protocols for patient today. Screening Tobacco Screening: Smoking Status: current every day smoker (10/26/2019) Tobacco Use: Currently (10/26/2019) Advised to Quit: Yes (10/26/2019)Review of Systems General: Denies chills, fever. Cardiovascular: Denies chest pain. Respiratory: Denies shortness of breath. Physical ExamGeneral Appearance: well nourished, well hydrated, no acute distressRespiratory, Auscultation: clear to auscultation bilaterally; no rales, rhonchi, or wheezesRespiratory, Effort: no intercostal retractions or use of accessory musclesCardiovascular, Auscultation: S1, S2 audible; no murmur, rub, or gallop; RRRGait & Station: normalBack: Moderately limited ROM.Strength 5/5 bilateral lower extremities.1+ patellar reflexes bilaterally.Skin, Inspection: no rashes, lesions, or ulcerationsOrientation: oriented to time, place, and personMood & Affect: no depression, anxiety, or agitationJudgment & Insight: intactCare Management Plan Transitions of CareInboundRate Your HealthIn general, would you say your health is? FairAssessment & Plan Problems:Assessed:Low back pain (ICD-724.2) (ICD10- M54.5) Assessment: Instructions: Chronic and episodic and responding well to ketorolac. Continue ketorolac as needed.Patient Instructions/Care Plan: Low back pain: Chronic and episodic and responding well to ketorolac. Continue ketorolac as needed. Plan developed in collaboration with patient and/or familyMedications:KETOROLAC TROMETHAMINE 10 MG ORAL TABLETHYDROCORTISONE ACETATE 25 MG RECTAL SUPPOSITORYCYCLOBENZAPRINE HCL 10 MG ORAL TABLETMETHOCARBAMOL 750 MG ORAL TABLETGABAPENTIN 800 MG ORAL TABLETMedication Changes:New Prescription:KETOROLAC TROMETHAMINE 10 MG ORAL TABLET-One po q8h prn pain. MDD 3. Qty: 30[Tablet] Refills: 1 Method: ElectronicAllergies:PENICILLIN (Critical)Orders:Adult - Ofc Vst, EST, Level III [CPT-60259] Follow-Up Return to clinic: As scheduled. Medications:KETOROLAC TROMETHAMINE 10 MG ORAL TABLET (KETOROLAC TROMETHAMINE) One po q8h prn pain. MDD 3. #30[Tablet] x 1 Route:ORAL Entered and Authorized by: James Cornejo MD Method used: Electronically to [facility] (retail) [address] [place] [address] Note to Pharmacy: Route: ORAL; RxID: [id number] signed by James Cornejo MD on 10/26/2019 at 4:39 PM Name Value Range Interpretation Code Description Data Colette rce(s) Supporting Document(s) ID Date Data Source [id number] 09/28/2019 02:21:34 PM EDT [facility] Measurements & CalculationsHeight: 66 inches (5 ft. 6 in.) 167.64 cm Weight: 181 pounds 82.27 kg Body Mass Index (BMI): 29.32BMI Interpretation: OverweightBody Surface Area (BSA): 1.92Vital SignsTemperature: 98.0F 36.67C tympanic Pulse Rate: 63 beats/minuteRespiratory Rate: 16 respirations/minuteBlood Pressure: 125/73 left arm sitting automaticVital Signs performed by: Laura Marte , September 28, 2019 2:28 PMInitial Intake Information From: patientRoom #: 14Infectious Disease / Travel ScreeningRecent travel for you or any close contacts? NoHave you had any close contact with anyone diagnosed with or under investigation for COVID-19 (coronavirus)? NoFever? NoRespiratory symptoms: cough, cold, congestion, shortness of breath, difficulty breathing? NoLoss of smell? NoLoss of taste? NoSmoking, Tobacco, Vaping or Smoke Exposure StatusSmoke Status: current every day smokerTobacco Use : YesDo you vape? NoHealthcare HistorySince your last office visit...Have you been admitted to the hospital? NoHave you been to an emergency room (ER) or urgent care clinic? NoHave you seen another healthcare provider? Yes - Dr. Olivo provider date reported today: 09/21/2019Have you seen a dentist? NoIntake performed by: Laura Marte , September 28, 2019 2:23 PMRate Your HealthIn general, would you say your health is? FairPain AssessmentAre you currently having any pain which... You would like your provider to address? Yes Affects your activity level? YesDepression Screening - PHQ-2Over the last two weeks, have you... Had little interest or pleasure in doing things? Not at all Been feeling down, depressed, or hopeless? Not at all PHQ-2 Score: 0Anxiety Screening - ARNEL-2Over the last two weeks, have you been... Feeling nervous, anxious, or on edge? Not at all Unable to stop or control worrying? Not at all ARNEL-2 Score: 0Pain AssessmentPain ScaleNumeric Rating Scale: 8 / 10Location: neckDuration: 2-3 daysFrequency: DailyCharacter/Quality: pinchingIs the pain radiating? NoScreening, Brief Intervention, & Referral to Treatment (SBIRT)Pre-Screening Questions How many times have you have 5 or more drinks in a day? 0How many times have you used an illegal drug or used a prescription medication for a non-medical reason? 0Performed by: Laura Marte , September 28, 2019 2:25 PMPatient History Medical History:ddd Surgical History:Lymph node removed javier shoulder surgery Family History:father-msSocial/Personal History: Chief Complaintfollow-up visit- labs, referral for colonoscopyHistory of Present Illness (HPI)Last colonscopy at [facility] in [place] 4 years ago reportedly showed polyps. Records unavailable today but we will obtain these.Chronic neck pain for which he has seen Dr. Saldana. It has been a while. He tells me they have nothing to offer. Will get these records as well.Right sided posterior neck pain for the past few hand. No injury recalled. No better and no worse with time. Worse with bending or twisting head. No relief with gabapentin or methocarbamol. Has not taken any over the counter pain medicaiton for this or tried ice or heat. This is different from the neck pain he has had in the past.HPI performed by: James Cornejo MD, September 28, 2019 2:31 PMTransitions of Care InboundMedication Reconciliation & ReviewMedication List was reviewed and/or updated during this visit, including review of any ecbu-jlg-rfhkyhp medications, herbal therapies, and/or supplements.Allergy ReviewAllergy List was reviewed and/or updated during this visit.Provider Calculated and Reviewed all Clinical Protocols for patient today. Review of Systems General: Denies dizziness, fatigue. Cardiovascular: Denies chest pain. Respiratory: Denies shortness of breath. Gastrointestinal: Denies diarrhea, constipation. Genitourinary: Denies incomplete emptying. Physical ExamGeneral Appearance: well nourished, well hydrated, no acute distressNeck: FROM. No bony point tenderness and no muscle spasm.Respiratory, Auscultation: clear to auscultation bilaterally; no rales, rhonchi, or wheezesRespiratory, Effort: no intercostal retractions or use of accessory musclesCardiovascular, Auscultation: S1, S2 audible; no murmur, rub, or gallop; RRRGait & Station: normalMotor, Tone, & Strength: Strength 5/5 bilateral upper extremities.Orientation: oriented to time, place, and personMood & Affect: no depression, anxiety, or agitationJudgment & Insight: intactCare Management Plan Transitions of CareInboundRate Your HealthIn general, would you say your health is? FairAssessment & Plan Problems:Added: Sprain of ligaments of cervical spine, initial encounter (ICD-847.0) (VJZ57-B71.4xxA) Assessment: Instructions: Distinct from his typical chronic pain and most consistent with strain or sprain.Encouraged heat, rest and OTC pain medications.Recheck one month for lab and chronic problem follow up, sooner as needed.Patient Instructions/Care Plan: Sprain of ligaments of cervical spine- initial encounter: Distinct from his typical chronic pain and most consistent with strain or sprain.Encouraged heat, rest and OTC pain medications.Recheck one month for lab and chronic problem follow up, sooner as needed. Plan developed in collaboration with patient and/or familyMedications:HYDROCORTISONE ACETATE 25 MG RECTAL SUPPOSITORYCYCLOBENZAPRINE HCL 10 MG ORAL TABLETMETHOCARBAMOL 750 MG ORAL TABLETGABAPENTIN 800 MG ORAL TABLETAllergies:PENICILLIN (Critical)Orders:Adult - Ofc Vst, EST, Level III [CPT-88640] Name Value Range Interpretation Code Description Data Colette rce(s) Supporting Document(s) ID Date Data Source [id number] 09/19/2019 08:06:14 AM EDT [facility] Labs In-House Blood TestsDate/Time Colle cted: September 19, 2019 8:06 AMTest Result Reference Range Normal ValueComments: blood draw done in offcie done in the right ac tolerated well Corbin Lacy MA, September 19, 2019 8:06 AMAssessment & Plan Orders:54825-Ehd Vst-Est Level I [CPT-84277] 65956 - Venipuncture [CPT-13427] Name Value Range Interpretation Code Description Data Colette rce(s) Supporting Document(s) ID Date Data Source [id number] 09/19/2019 08:05:00 AM EDT [facility] Name Value Range Interpretation Code Description Data Colette rce(s) Supporting Document(s) HCT 48.1 % 42.0-52.0 [facility] HGB 16.0 g/dL 13.5-17.5 N [facility] MCH 33.3 G/DL pg 32.0-36.5 N [facility] MCHC 31.3 PG % 27.0-33.0 [facility] PLATELETS 185 10 10*3/mm3 150-450 N [facility] RBC 5.12 10 10*6/mm3 4.30-6.10 [facility] RDW 12.3 % 11.5-14.5 [facility] WBC TOTAL 6.4 4.0-10.0 [facility] ID Date Data Source [id number] 09/19/2019 08:05:00 AM EDT [facility] Name Value Range Interpretation Code Description Data Colette rce(s) Supporting Document(s) BG FASTING 93 mg/dL 70-100 N [facility] T4, FREE 0.97 ng/dL 0.76-1.46 N [facility] TSH 1.280 microintl units/mL 0.358-3.740 [facility] ID Date Data Source [id number] 08/09/2019 09:57:01 AM EDT [facility] Measurements & CalculationsHeight: 66 inches (5 ft. 6 in.) 167.64 cm Weight: 188 pounds 3 oz. 85.54 kg Body Mass Index (BMI): 30.48BMI Interpretation: ObeseBody Surface Area (BSA): 1.95Weight Management Education Done (Nutrition/Physical Activity)Vital SignsTemperature: 98.7F tympanic Pulse Rate: 75 beats/minuteRespi ratory Rate: 16 respirations/minuteBlood Pressure: 122/86 right arm sitting automaticO2 Saturation: 97% room airVital Signs performed by: Luis Antonio Fernández MA, August 09, 2019 10:04 AMInitial Intake Information From: patientRoom #: 13Infectious Disease / Travel ScreeningRecent travel for you or any close contacts? NoHave you had any close contact with anyone diagnosed with or under investigation for COVID-19 (coronavirus)? NoFever? NoRespiratory symptoms: cough, cold, congestion, shortness of breath, difficulty breathing? NoLoss of smell? NoLoss of taste? NoSmoking, Tobacco, Vaping or Smoke Exposure StatusTobacco Use: YesAdv to Quit: YesDo you vape? NoPassive Smoke Exposure: YesHealthcare HistorySince your last office visit...Have you been admitted to the hospital? NoHave you been to an emergency room (ER) or urgent care clinic? NoHave you seen another healthcare provider? NoHave you seen a dentist? Yes - [facility]Int[facility] performed by: Luis Antonio Fernández MA, August 09, 2019 10:00 AM Rate Your HealthIn general, would you say your health is? FairPain AssessmentAre you currently having any pain which... You would like your provider to address? No Affects your activity level? NoDepression Screening - PHQ-2Over the last two weeks, have you... Had little interest or pleasure in doing things? Not at all Been feeling down, depressed, or hopeless? Not at all PHQ- 2 Score: 0Anxiety Screening - ARNEL-2Over the last two weeks, have you been... Feeling nervous, anxious, or on edge? Not at all Unable to stop or control worrying? Not at all ARNEL-2 Score: 0Food InsecurityWithin the past year...Did you worry whether your food would run out before you got money to buy more? NoWas there a time when the food you bought didn't last and you didn't have money to get more? NoScreening, Brief Intervention, & Referral to Treatment (SBIRT)Pre- Screening Questions How many times have you have 5 or more drinks in a day? 0How many times have you used an illegal drug or used a prescription medication for a non-medical reason? 0Performed by: Luis Antonio Fernández MA, August 09, 2019 10:00 AMPatient History Medical History:ddd Surgical History:Lymph node removed javier shoulder surgery Family History:father-msSocial/Personal History: Advised to Quit/Tobacco Education: YesChief Complaintlab results/ stitches left hand removal RM 13History of Present Illness (HPI)48 yr old male Pt here today for lab results and to have stitches removed from left middle finger. Pt denies pain at this time. Pt states he has been taking all medications with no side effects. Pt states he needs refills Gabapntin and methocarbamol. I, Quinten Mancilla MA, am scribing for, and in the presence of, Julio Zarate, p states he needs a refill on his medications. pt is also here today to get sutures removed. Transitions of Care InboundProblem ReviewProblem List was reviewed and/or updated during this visit.Medication Reconciliation & ReviewMedication List was reviewed and/or updated during this visit, including review of any bjms-pkq-nhtfzot medications, herbal therapies, and/or supplements.Allergy ReviewAllergy List was reviewed and/or updated during this visit.Adult Preventive CareProvider Calculated and Reviewed all Clinical Protocols for patient today. Screening Tobacco Screening: Smoking Status: current every day smoker (08/02/2019) Tobacco Use: Currently (08/09/2019) Advised to Quit: Yes (08/09/2019)Labs/Meds/Other Counseling- Nutrition and Physical Activity:BMI Interpretation: Obese (08/09/2019) Counseling: Done (08/09/2019) Physical Activity: Done (08/09/2019)Review of Systems General: Denies loss of appetite, chills, dizziness, fatigue, fever, continued fever, headache, feeling ill, sweats, night sweats, sleep disturbances, weight loss. Cardiovascular: Denies chest pain, palpitations, feeling faint, trouble breathing w/exertion, SOB upon lying down, SOB at night, peripheral edema, elevated blood pressure, decreased heart rate. Respiratory: Denies cough, difficulty breathing, shortness of breath, excessive sputum, coughing up blood, wheezing, chest pain. Musculoskeletal: Complains of joint pain, recent injury. Skin: Complains of see HPI. Physical ExamGeneral Appearance: well nourished, well hydrated, no acute distressPeripheral Circulation: no clubbing, cyanosis, edema, or varicositiesGait & Station: normalUpper Extremity, Left: 12 sutures remove left middle finger, semilunar injury, C&DOrientation: oriented to time, place, and personMood & Affect: no depression, anxiety, or agitationJudgment & Insight: intactCare Management Plan Transitions of CareInboundRate Your HealthIn general, would you say your health is? FairAssessment & Plan Problems:Added: Laceration without foreign body of left middle finger with damage to nail, subsequent encounter (ICD10- S61.313D)Right thoracic outlet syndrome (HYD42-T76.0) Assessment: OMTAssessment not SavedLaceration without foreign body of left middle finger with damage to nail; subsequent encounter (BNM58-P44.313D): sutures remov edMedications:HYDROCORTISONE ACETATE 25 MG RECTAL SUPPOSITORYCYCLOBENZAPRINE HCL 10 MG ORAL TABLETMETHOCARBAMOL 750 MG ORAL TABLETGABAPENTIN 800 MG ORAL TABLETMedication Changes:Refilled:METHOCARBAMOL 750 MG ORAL TABLET-take one tablet by mouth daily as needed. Qty: 30[Tablet] Refills: 2 Method: ElectronicGABAPENTIN 800 MG ORAL TABLET-One po bid Qty: 60[Tablet] Refills: 2 Method: ElectronicAllergies:PENICILLIN (Critical)Orders:Adult - Ofc Vst, EST, Level III [CPT-28366] Medications:GABAPENTIN 800 MG ORAL TABLET (GABAPENTIN) One po bid #60[Tablet] x 2 Route:ORAL Entered and Authorized by: Julio Zarate DO Method used: Electronically to [facility] (retail) [address] [place] [address] Note to Pharmacy: Route: ORAL; RxID: [id number] 750 MG ORAL TABLET (METHOCARBAMOL) take one tablet by mouth daily as needed. #30[Tablet] x 2 Route:ORAL Entered and Authorized by: Julio Zarate DO Method used: Electronically to [facility] (retail) [address] [place] [address] Note to Pharmacy: Route: ORAL; Indications: PERIPHERAL NEUROPATHIC PAIN RxID: [id number] signed by Julio Zarate DO on 08/09/2019 at 10:21 AM Name Value Range Interpretation Code Description Data Colette rce(s) Supporting Document(s) ID Date Data Source [id number] 08/02/2019 11:10:38 AM EDT [facility] Measurements & CalculationsHeight: 66 inches (5 ft. 6 in.) 167.64 cm Weight: 184 pounds 83.64 kg Body Mass Index (BMI): 29.81BMI Interpretation: OverweightBody Surface Area (BSA): 1.93Weight Management Education Done (Nutrition/Physical Activity)Vital SignsTemperature: 98.8F axillary Pulse Rate: 92 beats/minuteRespiratory Rate: 20 respirations/minuteBlood Pressure: 109/75 left arm standing automaticO2 Saturation: 98% room airVital Signs performed by: Luis Antonio Fernández MA, August 02, 2019 11:22 AMInitial Intake Information From: patientRoom #: 14Infectious Disease / Travel ScreeningRecent travel for you or any close contacts? NoHave you had any close contact with anyone diagnosed with or under investigation for COVID-19 (coronavirus)? NoFever? NoRespiratory symptoms: cough, cold, congestion, shortness of breath, difficulty breathing? NoLoss of smell? NoLoss of taste? NoSmoking, Tobacco, Vaping or Smoke Exposure StatusSmoke Status: current every day smokerTobacco Use: YesAdv to Quit: YesDo you vape? NoPassive Smoke Exposure: YesHealthcare HistorySince your last office visit...Have you been admitted to the hospital? NoHave you been to an emergency room (ER) or urgent care clinic? Yes - [facility] EREmergency room (ER) or urgent care date reported today: 07/28/2019Have you seen another healthcare provider? NoHave you seen a dentist? Yes - [facility] performed by: Lusi Antonio Fernández MA, August 02, 2019 11:13 AMRate Your HealthIn general, would you say your health is? PoorPain AssessmentAre you currently having any pain which... You would like your provider to address? Yes Affects your activity level? YesPain AssessmentPain ScaleNumeric Rating Scale: 10 / 10Location: buttocksDuration: 2-3 daysFrequency: DailyCharacter/Quality: burning, throbbing, pressure and stingingIs the pain radiating? NoScreening, Brief Intervention, & Referral to Treatment (SBIRT)Pre- Screening Questions How many times have you have 5 or more drinks in a day? 0How many times have you used an illegal drug or used a prescription medication for a non-medical reason? 0Performed by: Luis Antonio Fernández MA, August 02, 2019 11:15 AMPatient History Medical History:ddd Surgical History:Lymph node removed javier shoulder surgery Family History:father-msSocial/Personal History: Advised to Quit/Tobacco Education: YesChief Complainthemorrhoids RM 14 History of Present Illness (HPI)48 yr old male PT here today with complaints of hemorrhoid pain. Pt states the pain has gotten worse everyday for the past 3 days. Also c/o LBP an d his right leg gives out at times. Also c/o LBP and neck pain.Transitions of Care InboundProblem ReviewProblem List was reviewed and/or updated during this visit.Medication Reconciliation & ReviewMedication List was reviewed and/or updated during this visit, including review of any pkuo-thl-gokeozg medications, herbal therapies, and/or supplements.Allergy ReviewAllergy List was reviewed and/or updated during this visit.Adult Preventive CareProvider Calculated and Reviewed all Clinical Protocols for patient today. Screening Tobacco Screening: Smoking Status: current every day smoker (08/02/2019) Tobacco Use: Currently (08/02/2019) Advised to Quit: Yes (08/02/2019)Labs/Meds/Other Counseling- Nutrition and Physical Activity:BMI Interpretation: Overweight (08/02/2019) Counseling: Done (08/02/2019) Physical Activity: Done (08/02/2019)Review of Systems General: Complains of sleep disturbances. Denies loss of appetite, chills, dizziness, fatigue, fever, continued fever, headache, feeling ill, sweats, night sweats, weight loss. Cardiovascular: Denies chest pain, palpitations, feeling faint, trouble breathing w/exertion, SOB upon lying down, SOB at night, peripheral edema, elevated blood pressure, decreased heart rate. Respiratory: Denies cough, difficulty breathing, shortness of breath, excessive sputum, coughing up blood, wheezing, chest pain. Gastrointestinal: Complains of burning, itching, constipation, feeling any lumps or bumps. Musculoskeletal: Complains of back pain, leg pain. Physical ExamGeneral Appearance: well nourished, well hydrated, no acute distressAbdomen: large ext hemorrhoidsGait & Station: uses caneHead & Neck: spasm C2-4 on leftBack: L4-5 on right, right piriformisOrientation: oriented to time, place, and personMood & Affect: no depression, anxiety, or agitationJudgment & Insight: intactCare Management Plan Transitions of CareInboundRate Your HealthIn general, would you say your health is? PoorAssessment & Plan Problems:Added: External hemorrhoids without mention of complication (ICD-455.3) (OUL26-R15.4)Spasm of right piriformis muscle (XUD52-F23.838) Assessment: OMT doneAssessed:Peripheral neuropathic pain (ICD- 729.2) (DHL89-U05.2) Assessment: OT done w/reliefAssessment not SavedExternal hemorrhoids without mention of complication (JXI29-W02.4): cream ordered, Sitz bathsMedications:HYDROCORTISONE FE-PRAMOXINE 2.5-1 % RECTAL CREA MCYCLOBENZAPRINE HCL 10 MG ORAL TABLETMETHOCARBAMOL 750 MG ORAL TABLETGABAPENTIN 800 MG ORAL TABLETMedication Changes:New Prescription:HYDROCORTISONE ACETATE 25 MG RECTAL SUPPOSITORY-one supp MT qhs Qty: 12[Suppository] Refills: 0 Method: ElectronicCYCLOBENZAPRINE HCL 10 MG ORAL TABLET-one tab po TID prn spasm Qty: 30[Tablet] Refills: 1 Method: ElectronicHYDROCORTISONE FE-PRAMOXINE 2.5-1 % RECTAL CREAM-1 applicatorful MT qHS prn hemorrhoids Qty: 1[Tube] Refills: 1 Method: ElectronicRemoved:HYDROCORTISONE ACETATE 25 MG RECTAL SUPPOSITORY-one supp MT qhs Qty: 12[Suppository] Refills: 0Allergies:PENICILLIN (Critical)Orders:Adult - Ofc Vst, EST, Level IV [CPT-03926] Medications:HYDROCORTISONE FE-PRAMOXINE 2.5-1 % RECTAL CREAM (HYDROCORTISONE FE-PRAMOXINE) 1 applicatorful MT qHS prn hemorrhoids #1[Tube] x 1 Route:RECTAL Entered and Authorized by: Julio Zarate DO Method used: Electronically to [facility] ([facility]) [address] [place] [address] Fax: Note to Pharmacy: Route: RECTAL; RxID: [id number] HYDROCORTISONE ACETATE 25 MG RECTAL SUPPOSITORY (HYDROCORTISONE ACETATE) one supp MT qhs #12[Suppository] x 0 Route:RECTAL Entered and Authorized by: Julio Zarate DO Method used: Electronically to [facility] ([facility]) [address] [place] [address] RxID: [id number] HCL 10 MG ORAL TABLET (CYCLOBENZAPRINE HCL) one tab po TID prn spasm #30[Tablet] x 1 Route:ORAL Entered and Authorized by: Julio Zarate DO Method used: Electronically to [facility] (retail) [address] [place] [address] Note to Pharmacy: Route: ORAL; RxID: [id number] ACETATE 25 MG RECTAL SUPPOSITORY (HYDROCORTISONE ACETATE) one supp MT qhs #12[Suppository] x 0 Route:RECTAL Entered and Authorized by: Julio Zarate DO Method used: Electronically to [facility] (retail) [address] [place] [address] Fax: Note to Pharmacy: Route: RECTAL; RxID: [id number] Administered/Entered:Vaccination Group: InfluenzaSeries: 1 NOT GIVENVaccination: Flucelvax Quadrivalent PF (4y+) AdultReason Not Given: Patient decisionEntered Date: 08/02/2019 12:00 AMComments: PT refusedEntered by: Luis Antonio Fernández MA Name Value Range Interpretation Code Description Data Colette rce(s) Supporting Document(s) ID Date Data Source [id number] 07/30/2019 10:04:26 AM EDT [facility] Labs In-House Blood TestsDate/Time Colle cted: July 30, 2019 10:04 AMTest Result Reference Range Normal ValueComments: blood draw done in office, taken from left ac, tolerated well..Yamel Elena, July 30, 2019 10:05 AMAssessment & Plan Orders:[id number] Vst-Est Level I [CPT-32615] 78123 - Venipuncture [CPT-16247] Name Value Range Interpretation Code Description Data Colette rce(s) Supporting Document(s) ID Date Data Source [id number] 07/30/2019 10:00:00 AM EDT [facility] Name Value Range Interpretation Code Description Data Colette rce(s) Supporting Document(s) BG FASTING 110 mg/dL 70-100 [facility] T4, FREE 0.98 ng/dL 0.76-1.46 [facility] TSH 1.530 microintl units/mL 0.358-3.740 [facility] ID Date Data Source [id number] 07/30/2019 10:00:00 AM EDT [facility] Name Value Range Interpretation Code Description Data Colette rce(s) Supporting Document(s) HCT 48.2 % 42.0-52.0 [facility] HGB 16.2 g/dL 13.5-17.5 [facility] MCH 33.6 G/DL pg 32.0-36.5 [facility] MCHC 31.2 PG % 27.0-33.0 [facility] PLATELETS 208 10 10*3/mm3 150-450 [facility] RBC 5.19 10 10*6/mm3 4.30-6.10 [facility] RDW 12.5 % 11.5-14.5 [facility] WBC TOTAL 9.3 4.0-10.0 [facility] ID Date Data Source [id number] 07/30/2019 09:34:00 AM EDT [facility] [address] [place] [address] PHONE: [phone] FAX: [phone] Name .................. : SHANNON Mcelroy Acct Number.................. : [id number] ROOM. ................. : TR-03 Number ................... : [id number] Stay type ............. : E/R Discharge Date......... ... : Admit Date ......... : 07/28/19 Admit Phys .................... : ZURINORM Date of ....... : 1970 Family Phys ................... : GALE HARD Phone .................. : [phone] Age ................................ : 48 Film# .................. .:[id number] Sex ................................. : M Unsigned transcriptions are preliminary reports and do not represent a medical or legal document [facility] [id number] COMPLETE:07/28/19 12:19 37119 Reason(s): Trauma/Injury LEFT THIRD FINGER X-RAY: FINDINGS: Osteoarthritic changes are noted in the distal interphalangeal joint of the left third digit. There is no fracture, subluxation or focal osseous lesion. Soft tissue foreign body is not seen. 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 Otherwise, unremarkable radiograph of the left third finger that is without evidence of acute osseous or joint space abnormality. Electronically Reviewed and Signed By Kimmy Marks MD , 07/30/19 09:34, KGG Transcribe Initials: JENARO , Transcribe Date: 07/28/19 12:45, Dictation Date: Copy for: Z[facility] Franklin Copy for: EMERGENCY DEPT via modem Copy for: 710 MED REC DISCHARGED Page 1 of 1 Name Value Range Interpretation Code Description Data Colette rce(s) Supporting Document(s) ID Date Data Source [id number] 07/28/2019 12:00:00 PM EDT [facility] 1 OrderSheet [facility] Emergency Department [address] [place] [address] Phone #: ext- [phone] 07/28/2019 11:57 Patient: JEISON ORTEGA Sex: M : 1970 Age: 48yWEIGHT:83.9 kg (S) HEIGHT:66 inches (S) BMI:29.9ALLERGIES: PenicillinsCHIEF COMPLAINT: wrist, Lt, hand, Lt, middle fingerDIAGNOSIS: Laceration - InjuryLAB ORDERSOrder Description Priority Entered Acknowledged InitialedDIAGNOSTIC STUDY ORDERSOrder Description Priority Entered Acknowledged InitialedFingers Left STAT 12:19 07/28/2019 12:29 Reese,(Oxygen?(No)) Aliya Stokes MD; Louisa AguirreNShayy NOTES: laceration distal volar finger near dip joint Reason for Study: Trauma/InjuryMEDICATION/IV/DRIP/FLUID ORDERSOrder Description Priority Entered Acknowledged InitialedTdap IM 0.5 mL 13:33 07/28/2019 13:51 Zuri Leigh Norma MD; Louisa R.NShayyClindamycin PO 13:33 07/28/2019 13:52 Reese,300 mg (NOW x1) Aliya Stokes MD; Louisa R.NShayyGENERAL ORDERSOrder Description Priority Entered Acknowledged Initialed[Electronically signed by Aliya Stokes MD (14:01 07/28/2019)][Electronically signed by Louisa Leigh R.N. (14:07/28/2019)][Electronically locked by Louisa Leigh R.N. (14:07/28/2019)] Name Value Range Interpretation Code Description Data Colette rce(s) Supporting Document(s) ID Date Data Source [id number] 07/28/2019 12:00:00 PM EDT [facility] 1 Medication Reconciliation Report [facility] Emergency Department [address] [place] [address] Phone #: ext- [phone] 07/28/2019 11:57 Patient: JEISON ORTEGA Sex: M : 1970 Age: 48yWeight: 83.9 kgHeight/Length: 66 in.BMI: 29.9ALLERGIES: PenicillinsThe patient's Home Medications are listed below:CONTINUE TAKING THE FOLLOWING MEDICATIONS: Gabapentin Oral (800 mg) 1 tablet, 3x a dayThe source(s) of the original Home Medication informatio n:patientThe following Medications were given to the patient in the Emergency Department:TDAP [IM] IM 0.5 mL, administered: 07/28/2019 1:51:00 PMClindamycin [PO] PO 300 mg, administered: 07/28/2019 1:52:00 PMThe following Medications were prescribed to the patient:Acetaminophen (available over the counter): take according to label instructions. -- Aliya Stokes, MDMotrin (available over the counter): take according to label instructions. -- Aliya Stokes, MDprescription written on paper. Dr. Mayen is not up and working yet for me. -- Aliya Stokes MDClindamycin 300 mg: -- Aliya Stokes MD Name Value Range Interpretation Code Description Data Colette rce(s) Supporting Document(s) ID Date Data Source [id number] 07/28/2019 12:00:00 PM EDT [facility] 1 Medication Administration Record [facility] Emergency Department [address] [place] [address] Phone #: ext- [phone] 07/28/2019 11:57 Patient: JEISON ORTEGA Sex: M : 1970 Age: 48yWeight: 83.9 kgHeight/Length: 66 inBMI: 29.9ALLERGIES: Penicillins Date/Time Medication Administered Medication OrderedGiven TDAP [IM] Tdap IM 0.5 mL13:51 07/28/2019 Dose: 0.5 mL IMWaLouisa fields, R.N.Given CLINDAMYCIN [PO] Clindamycin PO 300 mg (NOW x1)13:52 07/28/2019 Dose: 300 mg POWLouisa duong, R.N. Name Value Range Interpretation Code Description Data Colette rce(s) Supporting Document(s) ID Date Data Source [id number] 07/28/2019 12:00:00 PM EDT [facility] 1 General Instructions [facility] Emergency Department [address] [place] [address] Phone #: ext- [phone] 07/28/2019 11:57 Patient: JEISON ORTEGA Sex: M : 1970 Age: 48y Single laceration to the left middle finger. Complicated repair. No foreign body present or left fingernail injury.INSTRUCTIONS Apply ice. Elevate affected areas above chest level. Protect wound and keep wound area clean. Change dressing twice daily. You may wash wounds briefly, then dry. Apply bacitracin twice daily. Sutures should be removed in seven days. No restrictions to activity (keep wound covered with gloves if you need to work). No dietary r estrictions. Warnings: COMPLICATIONS: Complications from this condition are possible. INFECTION: Watch for signs of infection (increasing heat and redness, pus-like drainage, swelling, or increased pain). Return or see your doctor if these signs occur. TETANUS: You were given a tetanus shot during your visit. Make a note for future reference. GENERAL WARNINGS: Return or contact your physician immediately if your condition worsens or changes unexpectedly, if not improving as expected, or if other problems arise. Your Current Medications: Your current home medications have been reviewed. CONTINUE TAKING THE FOLLOWING MEDICATIONS: Gabapentin Oral : Tablet 800 mg, 1 tablet 3x a day. Prescription Medications: Clindamycin 300 mg: prescription written on paper. Dr. Mayen is not up and working yet for me. OTC Medications: Acetaminophen (available over the counter): take according to label instructions. Motrin (available over the counter): take according to label instructions. Understanding of the discharge instructions verbalized by patient. Follow-up with: Follow up in seven days even if well and for suture removal. Call for an appointment. Reason for referral: evaluation and return to ED or f/u with pcp if concern for infection of wound. Summary 2 G eneral Instructions [facility] Emergency Department [address] [place] [address] Phone #: ext- [phone] 07/28/2019 11:57 Patient: JEISON ORTEGA Sex: M : 1970 Age: 48y of care provided to patient via paper. ADDITIONAL INFORMATIONLaceration: All ClosuresA laceration is a cut through the skin. This will usually require stitches (sutures) or gina if it is deep.Minor cuts may be treated with a surgical tape closure or skin glue.Home care Your healthcare provider may prescribe an antibiotic. This is to help prevent infection. Follow all instructions for taking this medicine. Take the medicine every day until it is gone or you are told to stop. You should not have any left over. The healthcare provider may prescribe medicines for pain. If no pain medicines were prescribed, you can use bsxp-bse-omuwlwe pain medicines. Follow instructions for taking any pain medicines. (Note: If you have chronic liver or kidney disease, or ever had a stomach ulcer or gastrointestinal bleeding, talk with your doctor before using these medicines.) Follow the healthcare provider's instructions on how to care for the cut. Keep the wound clean and dry. Do not get the wound wet until you are told it is OK to do so. If the area gets wet, gently pat it dry with a clean cloth. Replace the wet bandage with a dry one. 3 General Instructions [facility] Emergency Department [address] [place] [address] Phone #: ext- [phone] 07/28/2019 11:57 Patient: JEISON ORTEGA Sex: M : 1970 Age: 48y If a bandage was applied and it becomes wet or dirty, replace it. Otherwise, leave it in place for the first 24 hours. Caring for sutures or gina: Once you no longer need to keep them dry, clean the wound daily. First, remove the bandage. Then wash the area gently with soap and warm water, or as directed by the healthcare provider. Use a wet cotton swab to loosen and remove any blood or crust that forms. After cleaning, apply a thin layer of antibiotic ointment if advised. Then put on a new bandage unless you are told not to. Caring for skin glue: Don't put apply liquid, ointment, or cream on the wound while the glue is in place. Avoid activities that cause heavy sweating. Protect the wound from sunlight. Do not scratch, rub, or pick at the adhesive film. Do not place tape directly over the film. The glue should peel off within 5 to 10 days. Caring for surgical tape: Keep the area dry. If it gets wet, blot it dry with a clean towel. Surgical tape usually falls off within 7 to 10 days. If it has not fallen off after 10 days, you can take it off yourself. Put mineral oil or petroleum jelly on a cotton ball and gently rub the tape until it is removed. Once you can get the wound wet, you may shower as usual but do not soak the wound in water (no tub baths or swimming) Even with proper treatment, a wound infection may sometimes occur. Check the wound daily for signs of infection listed below.Scalp woundsDuring the first 2 days, you may carefully rinse your hair in the shower to remove blood, glass or dirtparticles. After two days, you may shower and shampoo your hair normally. Do not soak your scalp inthe tub or go swimming until the stitches or gina have been removed. Talk with your healthcareprovider before applying any antibiotic ointment to the wound.Mouth woundsEat soft foods to reduce pain. If the cut is inside of your mouth, clean by rinsing after each meal andat bedtime with a mixture of equal parts water and hydrogen peroxide (do not swallow!). Or, you canuse a cotton swab to directly apply hydrogen peroxide onto the cut. You may also be prescribed achlorhexidine solution to rise with. Mouth wounds can be painful when eating. You may use rbcsrg-qfh-ncrmywr local numbing solution for pain relief. If this is not available, you may use anynumbing solution intended for teething babies. You may apply this directly to the sores with acotton-tip swab or with your valorie aguirreFollow-up care 4 General Instructions [facility] Emergency Department [address] [place] [address] Phone #: ext- [phone] 07/28/2019 11:57 Patient: JEISON ORTEGA Sex: M : 1970 Age: 48yFollow up with your healthcare provider as advised. Ask your healthcare provider how long suturesshould be left in place. Be sure to return for suture removal as directed. If dissolving stitches wereused in the mouth, these should fall out or dissolve without the need for removal. If tape closureswere used, remove them yourself when your provider recommends if they have not fallen off on theirown. If skin glue was used, the film will wear off by itself. Generally, you should keep healing woundsout of direct sunlight for the first couple of months to try to lessen scarring.When to seek medical adviceCall your healthcare provider right away if any of these occur: Signs of infection, including increasing pain in the wound, increasing wound redness or swelling, or pus or bad odor coming from the wound Fever of 100.4F (38.C) or higher, or as directed by your healthcare provider Stitches or gina come apart or fall out or surgical tape falls off before 7 days Wound edges reopen Wound changes colors Numbness around the wound after any numbing medicine should have worn off Decreased movement around the injured areaCall 911Call 911 if you can't control the wound bleeding with direct pressure. [id number] [employer]. [address] [place] [address]. All rights reserved. This information is not intended as asubstitute for professional medical care. Always follow your healthcare professional's instructions.Laceration: All ClosuresA laceration is a cut through the skin. This will usually require stitches (sutures) or gina if it is deep.Minor cuts may be treated with a surgical tape closure or skin glue. 5 General Instructions [facility] Emergency Department [address] [place] [address] Phone #: ext- [phone] 07/28/2019 11:57 Patient: JEISON ORTEGA Sex: M : 1970 Age: 48yHome care Your healthcare provider may prescribe an antibiotic. This is to help prevent infection. Follow all instructions for taking this medicine. Take the medicine every day until it is gone or you are told to stop. You should not have any left over. The healthcare provider may prescribe medicines for pain. If no pain medicines were prescribed, you can use hrqy-pen-uqqnlms pain medicines. Follow instructions for taking any pain medicines. (Note: If you have chronic liver or kidney disease, or ever had a stomach ulcer or gastrointestinal bleeding, talk with your doctor before using these medicines.) Follow the healthcare provider's instructions on how to care for the cut. Keep the wound clean and dry. Do not get the wound wet until you are told it is OK to do so. If the area gets wet, gently pat it dry with a clean cloth. Replace the wet bandage with a dry one. If a bandage was applied and it becomes wet or dirty, replace it. Otherwise, leave it in place for the first 24 hours. Caring for sutures or gina: Once you no longer need to keep them dry, clean the wound daily. First, remove the bandage. Then wash the area gently with soap and warm water, or as directed by the healthcare provider. Use a wet cotton swab to loosen and remove any blood or crust that forms. Af ter cleaning, apply a thin layer of antibiotic ointment if advised. Then put on a new bandage unless you are told not to. Caring for skin glue: Don't put apply liquid, ointment, or cream on the wound while the glue is 6 General Instructions [facility] Department [address] [place] [address] Phone #: ext- [phone] 07/28/2019 11:57 Patient: JEISON ORTEGA Sex: M : 1970 Age: [address] Avoid activities that cause heavy sweating. Protect the wound from sunlight. Do not scratch, rub, or pick at the adhesive film. Do not place tape directly over the film. The glue should peel off within 5 to 10 days. Caring for surgical tape: Keep the area dry. If it gets wet, blot it dry with a clean towel. Surgical tape usually falls off within 7 to 10 days. If it has not fallen off after 10 days, you can take it off yourself. Put mineral oil or petroleum jelly on a cotton ball and gently rub the tape until it is removed. Once you can get the wound wet, you may shower as usual but do not soak the wound in water (no tub baths or swimming) Even with proper treatment, a wound infection may sometimes occur. Check the wound daily for signs of infection listed below.Scalp woundsDuring the first 2 days, you may carefully rinse your hair in the shower to remove blood, glass or dirtparticles. After two days, you may shower and shampoo your hair normally. Do not soak your scalp inthe tub or go swimming until the stitches or gina have been removed. Talk with your healthcareprovider before applying any antibiotic ointment to the wound.Mouth woundsEat soft foods to reduce pain. If the cut is inside of your mouth, clean by rinsing after each meal andat bedtime with a mixture of equal parts water and hydrogen peroxide (do not swallow!). Or, you canuse a cotton swab to directly apply hydrogen peroxide onto the cut. You may also be prescribed achlorhexidine solution to rise with. Mouth wounds can be painful when eating. You may use zbjwqd-mxm-shzpbew local numbing solution for pain relief. If this is not available, you may use anynumbing solution intended for teething babies. You may apply this directly to the sores with acotton-tip swab or with your finger.Follow-up careFollow up with your healthcare provider as advised. Ask your healthcare provider how long suturesshould be left in place. Be sure to return for suture removal as directed. If dissolving stitches wereused in the mouth, these should fall out or dissolve without the need for removal. If tape closureswere used, remove them yourself when your provider recommends if they have not fallen off on theirown. If skin glue was used, the film will wear off by itself. Generally, you should keep healing woundsout of direct sunlight for the first couple of months to try to lessen scarring.When to seek medical adviceCall your healthcare provider right away if any of these occur: 7 General Instructions [facility] Department [address] [place] [address] Phone #: ext- [phone] 07/28/2019 11:57 Patient: JEISON ORTEGA Sex: M : 1970 Age: 48y Signs of infection, including increasing pain in the wound, increasing wound redness or swelling, or pus or bad odor coming from the wound Fever of 100.4F (38.C) or higher, or as directed by your healthcare provider Stitches or gina come apart or fall out or surgical tape falls off before 7 days Wound edges reopen Wound changes colors Numbness around the wound after any numbing medicine should have worn off Decreased movement around the injured areaCall 911Call 911 if you can't control the wound bleeding with direct pressure. 1418-9874 [employer]. [address] [place] [address]. All rights reserved. This information is not intended as asubstitute for professional medical care. Always follow your healthcare professional's instructions.Extremity Laceration: Stitches, Gina, or TapeA laceration is a cut through the skin. If it is deep, it may require stitches or gina to close so it canheal. Minor cuts may be treated with surgical tape closures, or skin glue.X-rays may be done if something may have entered the skin through the cut. You may also need atetanus shot if you are not up to date on this vaccine.Home care Follow the healthcare provider's instructions on how to care for the cut. Wash your hands with soap and warm water before and after caring for your wound. This is to help prevent infection. Keep the wound clean and dry. If a bandage was applied and it becomes wet or dirty, replace it. Otherwise, leave it in place for the first 24 hours, then change it once a day or as directed. If stitches or gina were used, clean the wound daily: o After removing the bandage, wash the area with soap and water. Use a wet cotton swab to loosen and remove any blood or crust that forms. o After cleaning, keep the wound clean and dry. Talk with your healthcare provider before putting any antibiotic ointment on the wound. Reapply the bandage. 8 General Instructions [facility] Emergency Department [address] [place] [address] Phone #: ext- [phone] 07/28/2019 11:57 Patient: JEISON ORTEGA Sex: M : 1970 Age: 48y You may remove the bandage to shower as usual after the first 24 hours, but don't soak the area in water (no swimming) until the stitches or gina are removed. If surgical tape closures were used, keep the area clean and dry. If it becomes wet, blot it dry with a towel. Let the surgical tape fall off on its own. The healthcare provider may prescribe an antibiotic cream or ointment to prevent infection. He or she may also prescribe an antibiotic pill. Don't stop taking this medicine until you have finished it all or the provider tells you to stop. The provider may also prescribe medicine for pain. Follow the instructions for taking these medicines. Don't do activities that may reopen your wound.Follow-up careFollow up with your [facility] are provider, or as advised. Most skin wounds heal within 10 days. But aninfection may sometimes occur even with proper treatment. Check the wound daily for the signs ofinfection listed below. Stitches and gina should be removed within 7 to14 days. If surgical tapeclosures were used, you may remove them after 10 days if they have not fallen off by then.When to seek medical adviceCall your healthcare provider right away if any of these occur: Wound bleeding not controlled by direct pressure Signs of infection, including increasing pain in the wound, increasing wound redness or s welling, or pus or bad odor coming from the wound Fever of 100.4F (38C) or higher, or as directed by your healthcare provider Stitches or gina come apart or fall out or surgical tape falls off before 7 days Wound edges reopen Wound changes colors Numbness occurs around the wound Decreased movement around the injured area [id number] [employer]. [address] [place] [address]. All rights reserved. This information is not intended as asubstitute for professional medical care. Always follow your healthcare professional's instructions.Laceration: How to Minimize Scarring 9 General Instructions [facility] [address] [place] [address] Phone #: ext- [phone] 07/28/2019 11:57 Patient: JEISON ORTEGA Sex: M : 1970 Age: 48yA laceration is a cut through one or more layers of the skin. Cuts heal as the edges of the cut growtogether and heal. After the cut heals, the skin may not look exactly the same. The sandra left behind iscalled a scar. Scars are a natural part of the healing process. They are hard to avoid. How much youmay scar depends on the depth of the cut, its location on your body, your age, and how your skinheals. Some people tend to heal with more scarring than others. Most scars fade and become lessnoticeable over time. You can take steps to help this process along.NOTE: Please inform the staff of your last tetanus shot and if your wound was caused by a clover ordirty object.What you can doThe tips below can help reduce scarring as your wound heals. Keep the wound clean. Unless you are told to keep the area dry, gently wash the area with mild soap and water. You don't need to use antibacterial soap. Keep the wound moist. Apply petroleum jelly to the wound to keep it moist and prevent a scab from forming. Scabs lengthen the time it takes a wound to heal. Cover the wound. Use a non-adhesive bandage or gauze pad with paper tape. Change the bandage daily or if it gets wet or dirty. Try hydrating or silicone gel sheets. Thes e dressings keep the wound moist and may help it heal faster with less scarring. They may be useful for larger wounds, scrapes, sores, gallardo, or wounds with persistent redness. Ask your healthcare provider whether you should use this product on your wound. If you have stitches (sutures), follow your healthcare provider's instructions. Care for the wound as instructed. Also, return to have stitches removed on time. If you wait, scarring might be worse. Use sunscreen. Once the wound heals, apply sunscreen to the area daily. Sun may cause the scar to be more visible and discolored. Once the wound heals, there is some evidence that apim-kan-sitggbc scar creams can reduce the appearance of a scar.Follow upMake a follow-up appointment as directed by our staff. If you are advised to see a specialist or youhave concerns about scarring, please contact a hospital cleaning specialist.When to seek medical adviceWhen to seek medical advice 10 General Instructions [facility] [address] [place] [address] Phone #: ext- [phone] 07/28/2019 11:57 Patient: JEISON ORTEGA Sex: M : 1970 Age: 48y Call your health care provider right away if any of these occur: Shaking chills or fever above 100.4F (38C) Bleeding that soaks the dressing [place] fluid weeping from the wound Increased drainage from the wound or drainage that is yellow, yellow-green, or has a foul odor Increased swelling, pain, or redness in the skin around the wound A change in the color or size of the wound Increased fatigue Loss of appetite Sutures pulling away from the wound or pulling apart [id number] [employer]. [address] [place] [address]. All rights reserved. This information is not intended as asubstitute for professional medical care. Always follow your healthcare professional's instructions.Wound Check, InfectionYou have a wound that has become infected. The wound will not heal properly unless the infection iscleared. Infection in a wound may also spread if it is not treated. In most cases, antibiotic medicinesare prescribed to treat a wound infection.Symptoms of a wound infection include: Redness or swelling around the wound Warmth coming from the wound New or worsening pain Red streaks around the wound Draining pus FeverHome careFollow all directions you are given to treat the infection.Medicines 11 General Instructions [facility] [address] [place] [address] Phone #: ext- [phone] 07/28/2019 11:57 Patient: JEISON ORTEGA Sex: M : 1970 Age: 48yTake all medicines as prescribed. If you were given antibiotics, take them until they are gone or your healthcare provider tells you to stop. It is vital to finish the antibiotics even if you feel better. If you don't finish them, the infection may come back and be harder to treat. If your in fection is not responding to the medicines you are taking, you may be prescribed new medicines. Take medicine for pain as directed by your healthcare provider.Wound careCare for your wound as directed by your healthcare provider. Apply a warm compress (clean cloth soaked in hot water) to the infected area for about 5 to 10 minutes at a time. Be very careful not to burn yourself. Test the cloth on a non-infected area to make sure it is not too hot. Continue to change the dressing daily. If it becomes wet, stained with wound fluid, or dirty, change it sooner. To change it: o Wash your hands with soap and water before changing the dressing. o Carefully remove the dressing and tape. If it sticks to the wound, you may need to wet it a little to remove it. (Don't do this if your healthcare provider has told you not to.) o Gently clean the wound with clean water (or saline) using gauze, a clean washcloth, or cotton swab. o Don't use soap, alcohol, peroxide or other cleansers. o If you were told to dry the wound before putting on a new dressing, gently pat. Don't rub. o Throw out the old dressing. o Wash your hands again before opening the new, clean dressing. o Wash your hands again when you are done.Follow-up careFollow up with your healthcare provider as advised. If a culture was done, you will be notified if yourtreatment needs to change. Call as directed for the results.When to seek medical advice 12 General Instructions [facility] [address] [place] [address] Phone #: ext- [phone] 07/28/2019 11:57 Patient: JEISON ORTEGA Sex: M : 1970 Age: 48yCall your healthcare provider right away if any of these occur: Symptoms of infection don't start to improve within 2 days of starting antibiotics Symptoms of infection get worse New symptoms, such as red streaks around the wound Fever of 100.4F (38.0C) or higher for more than 2 days after starting the antibiotics, or as advised by your healthcare provider [phone] [employer]. [address] [place] [address]. All rights reserved. This information is not intended as asubstitute for professional medical care. Always follow your healthcare professional's instructions. You have been given the following additional information: Laceration: All Closures Laceration: All Closures Laceration, Extremity: Stitches, Staple, or Tape Laceration: How to Minimize Scarring Wound Check (Infection) No restrictions to activity (keep wound covered with gloves if you need to work).(Electronically signed by Aliya Stokes MD 07/28/2019 14:01) Name Value Range Interpretation Code Description Data Colette rce(s) Supporting Document(s) ID Date Data Source [id number] 07/28/2019 12:00:00 PM EDT [facility] 1 Clinical Report - Nurses [facility] [address] [place] [address] Phone #: ext- [phone] 07/28/2019 11:57 Patient: JEISON ORTEGA Sex: M : 1970 Age: 48yTRIAGEArrived by private vehicle. Historian: patient. Accompanied by friend.Triage time: 11:58 07/28/2019. Acuity: LEVEL 4.Chief Complaint: LACERATION.Alert. No acute distress.Location of injuries: tip of left middle finger. Occurred (cousins house). Occurred late entry - 11:. ( Pt states he took off the back top portion of a toilet and it smashed on his left middle fingerand sustained a lac.).Treatment VOCATIONAL REHAB CONSULTANT:None.SEPSIS SCREEN: NEGATIVE (12:07/28/2019). --12:01 07/28/19 Eladia Perrin R.N.11:58 07/28/19. BP: 149/99. MAP: 115. HR: 90. RR: 18. O2 saturation: 98% on room air. Temp: 98.7 F(temporal). Pain level now: 0/10. --12:01 07/28/19 Eladia Perrin R.N.Weight: 83.9 kg stated. Height/Length: 66 inches Per Patient. BMI: 29.9. --11:57 07/28/19 Eladia Perrin R.N.MedicationsGabapentin Oral (Tablet 800 mg) 1 tablet, 3x a day. --11:59 07/28/19 Eladia Perrin R.N.AllergiesPenicillins. --11:59 07/28/19 Eladia Perrin R.N.PROBLEMS:Back Pain.Shoulder pain. --12:00 07/28/19 Eladia Perrin R.N.Medication/allergy information source: the romel ent. --12:01 07/28/19 Eladia Perrin R.N.ADDITIONAL SURGERIES:Shoulder Surgery. --12:00 07/28/19 Eladia Perrin R.N.HistoryPAST MEDICAL HX: Immunizations: up-to-date. Tetanus immunization status is not up-to-date.SOCIAL HX: Current every day heavy tobacco smoker (cigarette)- less than 1 pack per day. History ofoccasional drug use: marijuana. No alcohol use. The patient was offered HIV testing but declined. 2 Clinical Report - Nurses [facility] [address] [place] [address] Phone #: ext- [phone] 07/28/2019 11:57 Patient: JEISON ORTEGA Sex: M : 1970 Age: 48y Patient education was provided. The patient was offered hepatitis C testing but declined. Patient education was provided. ( COVID screen negative). The patient has not traveled outside the [place] Infectious disease exposure: No infectious disease exposure. Patient is not a known carrier of tuberculosis, hepatitis, HIV, MRSA or VRE. Patient is not a known carrier of CRE. SELF HARM ASSESSMENT: Self harm assessment was performed. The patient answered "no" to the question(s) "Do you have thoughts of harming or killing yourself?" and "Do you have a plan for harming or killing yourself?". ABUSE ASSESSMENT: Abuse assessment. The patient had positive responses to the question(s) "Do you feel safe in your home?". Abuse denied. No suspicion of abuse. No report of abuse. NUTRITIONAL RISK ASSESSMENT: The nutritional risk assessment revealed no deficiencies. FUNCTIONAL ASSESSMENT: Functional assessment: no impairments noted. LEARNING NEEDS ASSESSMENT: The learning needs assessment revealed no barriers. FALL RISK ASSESSMENT: Fall risk assessment completed. No risk factors identified. SKIN INTEGRITY ASSESSMENT: Skin integrity risk assessment completed. No skin integrity risk identified. --12:07/28/19 Eladia Perrin R.N. Interventions Identification band on patient. --12:07/28/19 Eladia Perrin R.N.PHYSICAL ASSESSMENTAmbulatory to room.GENERAL / NEURO / PSYCH: Alert. Oriented X 4. Appears in pain.HEENT: Pupils equal, round and reactive to light.RESPIRATORY: Respirations not labored.CVS: Normal heart rate and rhythm. Pulses within normal limits.EXTREMITIES: Neuro-vascular status intact to the extremity. Left hand. Left middle finger: (laceration- 3cm).SKIN: Skin is warm and dry. Bleeding is present. (third digit on left hand). --12:09 07/28/19 Louisa Leigh R.N. EXTREMITIES: Left middle finger: (numbness to third digit. pain with palpation). --12:09 07/28/19 Louisa Leigh R.N.NURSING PROGRESS NOTESReassurance given. Wound cleansed with sterile water and Betadine. Call light placed in reach. Siderails up. Brakes of bed on. Patient ready for evaluation. --12:07 07/28/19 Louisa Leigh R.N. 3 Clinical Report - Nurses [facility] [address] [place] [address] Phone #: ext- [phone] 07/28/2019 11:57 Patient: JEISON ORTEGA Sex: M : 1970 Age: 48y Patient transported to radiology by wheelchair. --12:33 07/28/19 Louisa Leigh R.N. 12:40 07/28/19. Patient returned from radiology by wheelchair. --13:29 07/28/19 Louisa Leigh R.N. WOUND REPAIR: Wound repair performed by ED physician (). Assisted by one nurse. The wound is located on the left hand and left middle finger. --13:31 07/28/19 Louisa Leigh R.N. 13:51 07/28/2019 TDAP IM 0.5 mL given(Lot#: [id number], expiration date: 05/08/2021, Maintenance Shop Technician: [employer]). Given in the right deltoid. Allergies verified and confirmed 5 rights. Information reviewed with patient. Vaccine information statement provided to the patient. --13:51 07/28/19 Louisa Leigh R.N. 13:52 07/28/2019 Clindamycin PO 300 mg given. Allergies verified and confirmed 5 rights. Information reviewed with patient. Verbalizes understanding. --13:52 07/28/19 Louisa Leigh R.N.DISPOSITION / DISCHARGE No learning barriers present. Discharge instructions provided and reviewed with the patient. Reviewed medication(s) side effects, precautions, dosing and course information. Prescription(s) given to the patient. Reviewed wound care, rest and elevation instructions. Reviewed referral to a primary care physician. Activity restrictions (minimal use of injured extremity) reviewed. Patient verbalized understanding. Written instructions provided in Kitt[place]. --14:05 07/28/19 Louisa Leigh R.N. 14:01 07/28/19. BP: 146/101. HR: 87. RR: 18. O2 saturation: 99%. Temp: 98.1 F. Pain level now 0/10. --14:05 07/28/19 Louisa Leigh R.N. Departure time: 14:05 07/28/2019. --14:05 07/28/19 Louisa Leigh R.N.Locked/Released at 07/28/2019 14:05 by Louisa Leigh R.N. Name Value Range Interpretation Code Description Data Colette rce(s) Supporting Document(s) ID Date Data Source [id number] 07/28/2019 12:00:00 PM EDT [facility] 1 Clinical Report - Physicians/Mid Levels [facility] Department [address] [place] [address] Phone #: ext- [phone] 07/28/2019 11:57 Patient: JEISON ORTEGA Sex: M : 1970 Age: 48y Time Seen: 12:15 07/28/2019; initial patient contact. Arrived- By private vehicle. Historian- patient. Disposition decision: 13:51 07/28/2019.HISTORY OF PRESENT ILLNESS Chief Complaint: Injury to the hand and left wrist and left middle finger. The injury happened just prior to arrival. (friend's house). ( pt was repairing a toilet seat. he states the cover to the seat cut his left middle finger. pt does not think his td is utd). The patient sustained a laceration. Patient is experiencing mild pain. No injury to the head or neck.REVIEW OF SYSTEMSThe patient sustained a laceration. No swelling, tingling, weakness, foreign body or chills. No fever,double vision, ear pain, nasal congestion or runny nose. No sore throat, calf pain, chest pain, cough orabdominal pain. No constipation, diarrhea, nausea, vomiting or hematuria. No back pain, neck pain,alteration in mental status, headache or seizure. No easy bruising or anxiety. The patient sustained skinlaceration.PAST HISTORYpt has chronic back pain. The patient's dominant hand is the right. Tetanus immunization status isunknown. Problems: Back Pain. Shoulder pain. Additional Surgeries: Shoulder Surgery. Medications: Gabapentin Oral (Tablet 800 mg) 1 tablet, 3x a day. Allergies: Penicillins.SOCIAL HISTORYCurrent every day smoker (cigarette). No drug use.PHYSICAL EXAMAppearance: Alert. Oriented X3. No acute distress. but apparent distress. Does not appear to beanxious. 2 Clinical Report - Physicians/Mid Levels [facility] [address] [place] [address] Phone #: ext- [phone] 07/28/2019 11:57 Patient: JEISON ORTEGA Sex: M : 1970 Age: 48y Head: Head atraumatic. Eyes: Pupils equal, round and reactive to light. Eyes normal inspection. ENT: Ears normal. Nose normal. Pharynx normal. Neck: Normal inspection. Neck supple. No decreased ROM in the neck. CVS: Normal heart rate and rhythm. Heart sounds normal. Pulses normal. Respiratory: No respiratory distress. Painless inspiration. Breath sounds normal. Chest nontender. Abdomen: No visible injury. Soft and nontender. Bowel sounds normal. Back: No tenderness. Normal inspection. ROM normal. No limitation in ROM. Skin: No cyanosis. Skin warm. Skin not cool on palpation. (laceration 4cm to volar aspect of left middle finger). No diaphoresis or poor skin turgor. Extremities: Left middle finger: subcutaneous avulsion with controlled bleeding and 4.0 cm laceration with controlled bleeding of the volar aspect- SEE LACERATION PROCEDURE NOTE #1. Neurovascular intact distally. No foreign body or deformity. No limitation in movement. No subungual hematoma or amputation present. No bony tenderness. No signs of infection present. No wrist injury. No hand injury. Neuro, Vascular and Tendons: Vascular status intact. Sensory deficit over the left middle finger (pt has very mild decreased sensation to the distal tip of the finger). Motor intact. Tendon function intact. Neuro: Oriented X 3. No alteration in mental status. No motor deficit. Sensory deficit present. (slight decrease sensation to distal tip).LABS, X-RAYS, AND EKGX-Rays: X-rays are normal and reveal no acute disease (no frx, no foreign body). The X- rays wereindependently viewed by me and interpreted by the radiologist.PROGRESS AND PROCEDURESDigital Nerve Block - Finger: Digital nerve block performed on the left middle finger. Dorsal approachutilized. Total volume of 5 mL 1% Lidocaine and 0.25% Marcaine infiltrated via two punctures using [id number] needle. Patient cooperative during procedure. No complications encountered. Excellentanesthesia achieved.Laceration Repair: Time: 13:15 07/28/2019. Location: left middle finger. Time-out completedimmediately before the procedure. Length: 4.0cm. Complexity: complex (requiring revision of woundmargins) and simple (local anesthesia used). Distal neuro/vascular/tendon status normal. Sensory deficitpresent distally. Anesthesia provided by digital block using 1% lidocaine with epi and 0.25% Marcaine.Wound explored, cleansed, irrigated and examined to the base in bloodless field extensively with normalsaline. Debrided. No foreign material removed. Closure of skin: interrupted 4-0 Prolene. Post-procedure:he is stable and there are no complications. Bleeding is controlled. Dressing applied. Tetanusimmunization up-to-date. Estimated blood loss: 2 mL. Course of C are: 13:49 07/28/19. pt sustained a laceration to his left middle finger. he was repairing a toilet. he is right hand dominant. xray showed no frx or foreign body. a digital block done. laceration repaired without any complications. antibiotic ointment applied and dressed. his td was updated. he was given clindamycin. a rx for clindamycin written. I encouraged pt to return in 7 days for suture removal or sooner if any evidence of infection including redness, swelling, significant pain or pus coming out of the wound. pt voiced understanding of instructions. 3 Clinical Report - Physicians/Mid Levels [facility] Emergency Department [address] [place] [address] Phone #: [phone] 07/28/2019 11:57 Patient: JEISON ORTEGA Sex: M : 1970 Age: 48y Disposition: Discharged. Condition: good and stable.CLINICAL IMPRESSION Single laceration to the left middle finger. Complicated repair. No foreign body present or left fingernail injury.INSTRUCTIONS Apply ice. Elevate affected areas above chest level. Protect wound and keep wound area clean. Change dressing twice daily. You may wash wounds briefly, then dry. Apply bacitracin twice daily. Sutures should be removed in seven days. No restrictions to activity (keep wound covered with gloves if you need to work). No dietary restrictions. Warnings: COMPLICATIONS: Complications from this condition are possible. INFECTION: Watch for signs of infection (increasing heat and redness, pus-like drainage, swelling, or increased pain). Return or see your doctor if these signs occur. TETANUS: You were given a tetanus shot during your visit. Make a note for future reference. GENERAL WARNINGS: Return or contact your physician immediately if your condition worsens or changes unexpectedly, if not improving as expected, or if other problems arise. Your Current Medications: Your current home medications have been reviewed. CONTINUE TAKING THE FOLLOWING MEDICATIONS: Gabapentin Oral : Tablet 800 mg, 1 tablet 3x a day. Prescription Medications: Clindamycin 300 mg: prescription written on paper. Dr. Mayen is not up and working yet for me. OTC Medications: Acetaminophen (available over the counter): take according to label instructions. Motrin (available over the counter): take according to label instructions. Understanding of the discharge instructions verbalized by patient. Follow-up with: Follow up in seven days even if well and for suture removal. Call for an appointment. Reason for referral: evaluation and return to ED or f/u with pcp if concern for infection of wound. Summary 4 Clinical Report - Physicians/Mid [facility] Emergency Department [address] [place] [address] Phone #: [phone] 07/28/2019 11:57 Patient: JEISON ORTEGA Sex: M : 1970 Age: 48y of care provided to patient via paper.(Electronically signed by Aliya Stokes MD 07/28/2019 14:01) Name Value Range Interpretation Code Description Data Colette rce(s) Supporting Document(s) ID Date Data Source [id number] 06/27/2019 01:45:57 PM EDT [facility] Measurements & CalculationsHeight: 66 inches (5 ft. 6 in.) 167.64 cm Weight: 185 pounds 4 oz. 84.20 kg Body Mass Index (BMI): 30.01BMI Interpretation: ObeseBody Surface Area (BSA): 1.94Weight Management Education Done (Nutrition/Physical Activity)Vital SignsTemperature: 98.2FPulse Rate: 88 beats/minuteRespiratory Rate: 14 respirations/minuteBlood Pressure: 121/85 Vital Signs performed by: Yamel Elena, June 27, 2019 1:46 PMVital Signs performed by: Yamel Elena, June 27, 2019 1:46 PMInitial Intake Information from: patientRoom #: 13Smoking, Tobacco, Vaping or Smoke Exposure StatusSmoke Status: former smokerTobacco Use: NoDo you vape? NoPassive Smoke Exposure: NoHealthcare HistorySince your last office visit...Have you been admitted to the hospital? NoHave you been to an emergency room (ER) or urgent care clinic? NoHave you seen another healthcare provider? Yes - orthoHave you seen a dentist? Yes - [facility] Intake performed by: Yamel Elena, June 27, 2019 1:48 PMRate Your HealthIn general, would you say your health is? FairPain AssessmentAre you currently having any pain which... You would like your provider to address? No Affects your activity level? NoDepression Screening - PHQ-2Over the last two weeks, have you... Had little interest or pleasure in doing things? Not at all Been feeling down, depressed, or hopeless? Not at all PHQ-2 Score: 0Anxiety Screening - ARNEL-2Over the last two weeks, have you been... Feeling nervous, anxious, or on edge? Not at all Unable to stop or control worrying? Not at all ARNEL-2 Score: 0Food InsecurityWithin the past year...Did you worry whether your food would run out before you got money to buy more? NoWas there a time when the food you bought didn't last and you didn't have money to get more? NoInfectious Disease / Travel ScreeningRecent travel for you or any close contacts? NoHave you had any close contact with anyone diagnosed with or under investigation for COVID-19 (coronavirus)? NoHave you had any of the following symptoms recently? Fever? NoRespiratory symptoms: cough, cold, congestion, shortness of breath, difficulty breathing? NoScreening, Brief Intervention, & Referral to Treatment (SBIRT)Pre-Screening Questions How many times have you have 5 or more drinks in a day? 0How many times have you used an illegal drug or used a prescription medication for a non-medical reason? 0Performed by: Yamel Elena, June 27, 2019 1:49 PMPatient History Medical History:ddd Surgical History:Lymph node removed javier shoulder surgery Family History:father- msSocial/Personal History: Chief Complaintfollow up labsHistory of Present Illness (HPI)His triglycerides are over 400 and his HDL is less than 40. He has not been told before that his cholesterols are off. He does try to stay active but he is limited in this by chronic leg pain bilaterally that has been diagnosed in the past as neuropathic to some degree. No response to multiple attempts at treatment including medications from multiple different classes.His WBCs were high at 14. He has been feeling well lately.Telemedicine visit with patient's location at [facility] and provider's location at offsite office. Additional person(s)participating in the visit: None.HPI performed by: James Cornejo MD, June 27, 2019 2:08 PMTransitions of Care InboundProblem ReviewProblem List was reviewed and/or updated during this visit.Medication Reconciliation & ReviewMedication List was reviewed and/or updated during this visit, including review of any wgpc-jpe-nbyrhku medications, herbal therapies, and/or supplements.Allergy ReviewAllergy List was reviewed and/or updated during this visit.Adult Preventive CareProvider Calculated and Reviewed all Clinical Protocols for patient today. Labs/Meds/Other Counseling- Nutrition and Physical Activity:BMI Interpretation: Obese (06/27/2019) Counseling: Done (06/27/2019) Physical Activity: Done (06/27/2019)Review of Sys tems General: Denies chills, fever. Cardiovascular: Denies chest pain. Respiratory: Denies cough, shortness of breath. Physical ExamGeneral Appearance: well nourished, well hydrated,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 and lids normal, EOMIExternal Ears: normal, no lesions or defo rmitiesHearing: grossly intactOtoscopy: canals clear, tympanic membranes intact, no fluid, light reflex intact bilaterallyExternal Nose: normal, no lesions or deformitiesNasal: mucosa, septum, and turbinates normal, nares patentLips/Teeth/Gums: normal dentition, no gingival inflammation, no labial lesionsPharynx: tongue normal, posterior pharynx without erythema or exudate, no thrush/aphthous ulcerRespiratory, Auscultation: clear to auscultation bilaterally; no rales, rhonchi, or wheezesRespiratory, Effort: no intercostal retractions or use of accessory musclesCardiovascular, Auscultation: S1, S2 au dible; no murmur, rub, or gallop; RRRPeripheral Circulation: no clubbing, cyanosis, edema, or varicositiesAbdomen: soft, non-tender, no masses, bowel sounds normalGait & Station: normalHead & Neck: Spinous processes NTTP. + paralcervical spasms FROM with pain. MNVI. negative to 45 degrees. Gait intactBack: Spinous processes NTTP. + paralumbar spasms FROM with pain. MNVI. SLR positive to 30 degrees. Gait intactSkin, Inspection: no rashes, lesions, or ulcerationsOrientation: oriented to time, place, and personMood & Affect: no depression, anxiety, or agitationJudgment & Insight: intactCare Management Plan Transitions of CareInboundRate Your HealthIn general, would you say your health is? GoodAssessment & Plan Problems:Added: Pain in unspecified hand (ICD-729.5) (SAQ66-J23.643) Assessment: Instructions: Counseled patient on all diagnoses/ treatments. Return to clinic/ ER for any worsening symptoms or concernsOrtho consuiltAssessed:Tobacco use (ICD-305.1) (EQI48-U31.0) Assessment: Instructions: Counseled on tobacco cessation for 10 min.Neck pain (ICD-723.1) (XXN90-J99.2) Assessment: Instructions: Counseled patient on all diagnoses/ treatments. Return to clinic/ ER for any worsening symptoms or concernsMRI C-spine orderedNS referralPatient Instructions/Care Plan: Tobacco use: Counseled on tobacco cessation for 10 min.Neck pain: Counseled patient on all diagnoses/ treatments. Return to clinic/ ER for any worsening symptoms or concernsMRI C-spine orderedNS referralMedication issuedPain in unspecified hand: Counseled patient on all diagnoses/ treatments. Return to clinic/ ER for any worsening symptoms or concernsOrtho consuilt Plan developed in collaboration with patient and/or familyMedications:LYRICA 75 MG ORAL CAPSULEGABAPENTIN 400 MG ORAL CAPSULEMedication Changes:New Prescription:GABAPENTIN 400 MG ORAL CAPSULE-1 po tid prn neuropathic pain Qty: 90[Capsule] Refills: 3 Method: ElectronicLYRICA 75 MG ORAL CAPSULE-1 po tid prn pain Qty: 90[Capsule] Refills: 0 Method: ElectronicAllergies:PENICILLIN (Critical)Orders:MRI SPINAL CANAL CERVICAL W/O CONTRAST MATRL [CPT-29401] Neurosurgery [CPT-24351] Orthopaedics Consult [CPT-15098] Adult - Ofc Vst, EST, Level IV [CPT-61159] Follow-Up Return to clinic: in 30 days for f/uAdditional Follow-Up: Counseled patient on all diagnoses/ treatments. Return to clinic/ ER for any worsening symptoms or concernsClinical Visit Summary Declined Name Value Range Interpretation Code Description Data Colette rce(s) Supporting Document(s) ID Date Data Source [id number] 02/20/2019 12:26:43 PM [facility] Patient History Social/Personal History: Smoking Status: current some day smokerAdvised to Quit/Tobacco Education: YesCurrent Problems: Tobacco use (ICD- 305.1) (HRH46-P85.0)Shoulder pain, right, chronic (ICD-719.41) (ICD10- M25.511)Shoulder pain, left, chronic (ICD-719.41) (DLY23-O65.512)Low back pain (ICD-724.2) (HEO70-D09.5)Neck pain (ICD-723.1) (TBH19-B85.2)Current Allergies: PENICILLIN (Critical) Dental Chart: Procedures:Type - CDT Code - Description B - (D1110) Prophylaxis, adult (Performed by Sade Washington RDH) Chart Notes:luz marina (Feb 20 2019 1:11PM): OH-GoodAdult prophyLight calculus the linguals and interproximal mostly sextant 5/ trace biofilm. Tissue significant recession on the lingual of #25/ generalized recession on the facials; light bleeding with hand scaling and ultrasonic use. Med Hx reviewed wwith pt- no changes. 6 month recall. Exc pt. Sade Washington RDH by luz marina (02/20/2019 1:10 PM): Tooth Notes and Watches:- Tooth 8 Note: RTC and crown done as a child; trauma related. Sade Washington RDH by luz marina (02/20/2019 1:11 PM): Assessment & Plan Allergies:PENICILLIN (Critical)Clinical Visit Summary DeclinedSmoking, Tobacco or Smoke Exposure StatusSmoke Status: current some day smokerTobacco Use: YesAdv to Quit: YesClinical List ReviewProblem ReviewProblem List was reviewed and/or updated during this visit.Medication Reconciliation & ReviewMedication List was reviewed and/or updated during this visit, including review of any bxkm-agf-pnziofu medications, herbal therapies, and/or supplements.Allergy ReviewAllergy List was reviewed and/or updated during this visit. Name Value Range Interpretation Code Description Data Colette rce(s) Supporting Document(s) ID Date Data Source [id number] 02/19/2019 09:57:40 AM [facility] Patient History Social/Personal History: Smoking Status: current some day smokerAdvised to Quit/Tobacco Education: YesCurrent Problems: Tobacco use (ICD- 305.1) (ZMA31-S21.0)Shoulder pain, right, chronic (ICD-719.41) (ICD10- M25.511)Shoulder pain, left, chronic (ICD-719.41) (XLU37-L93.512)Low back pain (ICD-724.2) (QWH50-V73.5)Neck pain (ICD-723.1) (ZUZ31-F52.2)Current Allergies: PENICILLIN (Critical) Dental Chart: Procedures:Type - CDT Code - Description B - (D0150) Comprehensive oral evaluation - new or established patient (Performed by Xochitl Arana DDS) B - (D0274) Bitewings, 4 radiographic images (Performed by Sade Washington RDH) B - (D0230) Intraoral, periapical, each additional radiographic image on Tooth # 11 on Tooth Surface I (Performed by Sade Washington RDH) B - (D0230) Intraoral, periapical, each additional radiographic image on Tooth # 25 on Tooth Surface I (Performed by Sade Washnigton RDH) B - (D0220) Intraoral, periapical, first radiographic image on Tooth # 6 on Tooth Surface I (Performed by Sade Washington RDH) B - (D0230) Intraoral, periapical, each additional radiographic image on Tooth # 8 on Tooth Surface I (Performed by Sade Washington RDH) Existing:Type - CDT Code - Description[E] [place] - Porcelain Fused To Kaye Metal On #8[E] [employer] [place] On #1 Surface OL, #14 Surface OL, #15 Surface OL, #18 Surface O, #2 Surface O, #3 Surface OL, #31 Surface O[E] Root Canal On #8 Region A[E] Resin- Based Composite - Direct On #19 Surface O, #29 Surface DO, #30 Surface O Chart Notes:humphrey (Feb 19 2019 11:22AM): [facility](-). CC: none. Reviewed Xrays. Exam: no caries detected. OCS: WNL, IO/ EO completed, No significant hard findings upon clinical exam Pt was cooperative.OHI givenReferral: N/ANV:recallSade Washington RDH by humphrey (02/19/2019 11:22 AM): ; luz marina (Feb 19 2019 11:12AM): OH-Fair to GoodPt was being seen every 6 months months at [facility], until they stopped seeing adult patients. Pt denies any discomfort.Comprehensive perio exam, 4BW's, Pa's-#6,8,11 and 25Pt states he usually brushes in the am only, and does not floss. Stressed TB techque with soft TB only; generalized recession. Light calculus seen visually along the linguals of sextant 5 (significant recession on the lingual of #25- previous tongue ring wearer/ no mobility present.)Tissue several perio probings of 5mm along the distal of several wisdom teeth, otherwise perio probings of 3mm or less. Minimal BOP. Pt is an occassional smoker; discussed the correlation between smoking and periodontal disease. No caries detected on exam. Pt is seen here in adult med- pt denes any changes. Exc pt.N/V-Prophy. Sade Washington RDH by luz marina (02/19/2019 11:12 AM): Tooth Notes and Watches: Assessment & Plan Problems:Added: Tobacco use (ICD- 305.1) (LRL64-W81.0)Allergies:PENICILLIN (Critical)Clinical Visit Summary DeclinedSmoking, Tobacco or Smoke Exposure StatusSmoke Status: current some day smokerTobacco Use: YesAdv to Quit: YesClinical List ReviewProblem ReviewProblem List was reviewed and/or updated during this visit.Medication Reconciliation & ReviewMedication List was reviewed and/or updated during this visit, including review of any culb-qhk-gfpxrtz medications, herbal therapies, and/or supplements.Allergy ReviewAllergy List was reviewed and/or updated during this visit. Name Value Range Interpretation Code Description Data Colette rce(s) Supporting Document(s) Procedure Vital Signs ID Date Data Source UNK Name Value Range Interpretation Code Description Data Source(s) Systolic blood pressure 164 mm[Hg] 164 mm[Hg] A THENA ([facility]) Diastolic blood pressure 82 mm[Hg] 82 mm[Hg] MIRTHA ([facility]) Systolic blood pressure 164 mm[Hg] 164 mm[Hg] A THENA ([facility]) Diastolic blood pressure 82 mm[Hg] 82 mm[Hg] MIRTHA ([facility]) Systolic blood pressure 135 mm[Hg] 135 mm[Hg] A THENA ([facility]) Diastolic blood pressure 83 mm[Hg] 83 mm[Hg] MIRTHA ([facility]) Systolic blood pressure 135 mm[Hg] 135 mm[Hg] A THENA ([facility]) Diastolic blood pressure 83 mm[Hg] 83 mm[Hg] MIRTHA ([facility]) Systolic blood pressure 135 mm[Hg] 135 mm[Hg] A THENA ([facility]) Diastolic blood pressure 83 mm[Hg] 83 mm[Hg] MIRTHA ([facility]) Body weight 3078 [oz_av] 3078 [oz_av] MIRTHA ([facility]) Systolic blood pressure 146 mm[Hg] 146 mm[Hg] A THENA ([facility]) Body mass index (BMI) [Ratio] 31 kg/m2 31 kg/ m2 MIRTHA ([facility]) Body height 66 [in_i] 66 [in_i] MIRTHA ([facility]) Systolic blood pressure 164 mm[Hg] 164 mm[Hg] A THENA ([facility]) Diastolic blood pressure 94 mm[Hg] 94 mm[Hg] IMRTHA ([facility]) Systolic blood pressure 164 mm[Hg] 164 mm[Hg] A THENA ([facility]) Diastolic blood pressure 94 mm[Hg] 94 mm[Hg] MIRTHA ([facility]) Systolic blood pressure 164 mm[Hg] 164 mm[Hg] A THENA ([facility]) Diastolic blood pressure 94 mm[Hg] 94 mm[Hg] IMRTHA ([facility]) Systolic blood pressure 164 mm[Hg] 164 mm[Hg] A THENA ([facility]) Diastolic blood pressure 94 mm[Hg] 94 mm[Hg] MIRTHA ([facility]) Body surface area Derived from formula 1.98 m2 1.98 m2 MEDKATHRIN ([facility], ) Body weight 88.452 kg 88.452 kg PHILLIP ([facility]) [place] body weight 142 [lb_av] 142 [lb_av] [facility] ([facility]) Body mass index (BMI) [Ratio] 31.5 kg/m2 31.5 k g/m2 [facility] ([facility]) Body weight 195.00 [lb_av] 195.00 [lb_av] [facility] Body height 66 [in_i] 66 [in_i] [facility] ([facility]) 5'6" Diastolic blood pressure 88 mm[Hg] 88 mm[Hg] [facility] ([facility]) Systolic blood pressure 142 mm[Hg] 142 mm[Hg] M EDKATHRIN ([facility]) Body weight 3026.08 [oz_av] 3026.08 [oz_av] ATH COSTA ([facility]) Systolic blood pressure 134 mm[Hg] 134 mm[Hg] A [facility] ([facility]) Body height 66 [in_i] 66 [in_i] MIRTHA ([facility]) Diastolic blood pressure 77 mm[Hg] 77 mm[Hg] MIRTHA ([facility]) Body weight 2896 [oz_av] 2896 [oz_av] MIRTHA ([facility]) Systolic blood pressure 123 mm[Hg] 123 mm[Hg] A [facility] ([facility]) Body height 66 [in_i] 66 [in_i] MIRTHA ([facility]) Diastolic blood pressure 83 mm[Hg] 83 mm[Hg] MIRTHA ([facility]) Body weight 2896 [oz_av] 2896 [oz_av] MIRTHA ([facility]) Systolic blood pressure 125 mm[Hg] 125 mm[Hg] A [facility] ([facility]) Body height 66 [in_i] 66 [in_i] MIRTHA ([facility]) Diastolic blood pressure 73 mm[Hg] 73 mm[Hg] MIRTHA ([facility]) Body weight 3011.04 [oz_av] 3011.04 [oz_av] ATH [place] ([facility]) Systolic blood pressure 122 mm[Hg] 122 mm[Hg] A THENA ([facility]) Body height 66 [in_i] 66 [in_i] MIRTHA ([facility]) Diastolic blood pressure 86 mm[Hg] 86 mm[Hg] MIRTHA ([facility]) Body weight 2944 [oz_av] 2944 [oz_av] MIRTHA ([facility]) Systolic blood pressure 109 mm[Hg] 109 mm[Hg] A THENA ([facility]) Body height 66 [in_i] 66 [in_i] MIRTHA ([facility]) Diastolic blood pressure 75 mm[Hg] 75 mm[Hg] MIRTHA ([facility]) Body weight 2964 [oz_av] 2964 [oz_av] MIRTHA ([facility]) Systolic blood pressure 121 mm[Hg] 121 mm[Hg] [facility] Body height 66 [in_i] 66 [in_i] MIRTHA ([facility]) Diastolic blood pressure 85 mm[Hg] 85 mm[Hg] MIRTHA ([facility]) Body mass index (BMI) [Ratio] 29.2 kg/m2 29.2 k g/m2 MEDENT ([facility]) Body weight 186.25 [lb_av] 186.25 [lb_av] MEDEN T ([facility]) Body height 67 [in_i] 67 [in_i] [facility] ([facility]) 5'7" Body weight 2964 [oz_av] 2964 [oz_av] MIRTHA ([facility]) Systolic blood pressure 129 mm[Hg] 129 mm[Hg] A THENA ([facility]) Body height 66 [in_i] 66 [in_i] MIRTHA ([facility]) Diastolic blood pressure 78 mm[Hg] 78 mm[Hg] MIRTHA ([facility]) Body mass index (BMI) [Ratio] 29.9 kg/m2 29.9 k g/m2 [facility] ([facility] Heart rate 74 /min 74 /min [facility] ([facility] Diastolic blood pressure 74 mm[Hg] 74 mm[Hg] [facility] ([facility] Systolic blood pressure 154 mm[Hg] 154 mm[Hg] M EDKATHRIN ([facility] Body weight 185.00 [lb_av] 185.00 [lb_av] MEDEN T ([facility] Body height 66 [in_i] 66 [in_i] MEDKATHRIN ([facility] 5'6" Body weight 2937.6 [oz_av] 2937.6 [oz_av] ATHEN A ([facility]) Systolic blood pressure 114 mm[Hg] 114 mm[Hg] [facility] Body height 66 [in_i] 66 [in_i] MIRTHA ([facility]) Diastolic blood pressure 76 mm[Hg] 76 mm[Hg] MIRTHA ([facility]) Body weight 2963.2 [oz_av] 2963.2 [oz_av] ATHEN A ([facility]) Systolic blood pressure 164 mm[Hg] 164 mm[Hg] [facility] Body height 66 [in_i] 66 [in_i] MIRTHA ([facility]) Diastolic blood pressure 96 mm[Hg] 96 mm[Hg] MIRTHA ([facility]) Patient Treatment Plan of Care Planned Activity Planned Date Details Description Data Source (s) tramadol hydrochloride 50 MG Oral Tablet MIRTHA ([facility]) tizanidine 4 MG Oral Tablet MIRTHA ([facility]) pregabalin 75 MG Oral Capsule MIRTHA ([facility]) POLYETHYLENE GLYCOL 3350 105 MG/ML / Pot assium Chloride 0.85495 MEQ/ML / Sodium Bicarbonate 0.017 MEQ/ML / Sodium Chloride 0.0479 MEQ/ML Oral Solution MIRTHA ([facility]) Hydrocortisone 10 MG/ML / Neomycin 3.5 M G/ML / Polymyxin B 04306 UNT/ML Otic Solution MIRTHA ([facility]) Methocarbamol 750 MG Oral Tablet MIRTHA ([facility]) Ketorolac Tromethamine 10 MG Oral Tablet MIRTHA ([facility]) hydrocortisone acetate 25 MG Rectal Suppository MIRTHA ([facility]) gabapentin 400 MG Oral Capsule MIRTHA ([facility]) duloxetine 60 MG Delayed Release Oral Capsule MIRTHA ([facility]) duloxetine 30 MG Delayed Release Oral Capsule MIRTHA ([facility]) Cyclobenzaprine hydrochloride 10 MG Oral Tablet MIRTHA ([facility]) Clindamycin 150 MG Oral Capsule MIRTHA ([facility]) Chantix Starting Month Box 0.5 mg (11)-1 mg (42) tablets in dose pack USE DIRECTED MIRTHA ([facility]) ammonium lactate 120 MG/ML Topical Cream MIRTHA ([facility])
[2020-04-18] MEDS ORDERED: NS 1,000 ML IV ONE (08:00)
--- NOTE | 2020-04-18 09:08 | ROOR ---
Patient Name: Jeison Singleton Procedure Date: 04/18/2020 8:41 AM Date of : 1970 Age: 49 Room: [facility] Gender: Male Note Status: Finalized Procedure: Colonoscopy Indications: High risk colon cancer surveillance: Personal history of colonic polyps, Family history of colon cancer in multiple second-degree relatives Providers: Burak ROD MD Referring MD: James MANRIQUEZ MD Requesting Provider: Medicines: Monitored Anesthesia Care Complications: No immediate complications. Procedure: Pre-Anesthesia Assessment: - The heart rate, respiratory rate, oxygen saturations, blood pressure, adequacy of pulmonary ventilation, and response to care were monitored throughout the procedure. The Colonoscope was introduced through the anus and advanced to the terminal ileum, with identification of the appendiceal orifice and IC valve. The colonoscopy was performed without difficulty. The patient tolerated the procedure well. The quality of the bowel preparation was good. Findings: The perianal and digital rectal examinations were normal. A 5 mm polyp was found in the sigmoid colon. The polyp was sessile. The polyp was removed with a cold snare. Resection and retrieval were complete. The ileocecal valve was mildly lipomatous. One 10 mm mucosal nodule was found at the ileocecal valve. The polyp was removed with a cold snare. Resection and retrieval were complete. Small Internal Hemorrhoids. The exam was otherwise without abnormality on direct and retroflexion views. Impression: - One 5 mm polyp in the sigmoid colon, removed with a cold snare. Resected and retrieved. 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 Resected and retrieved. - Small Internal Hemorrhoids. - The examination was otherwise normal on direct and retroflexion views. Recommendation: - Telephone endoscopist for pathology results in 2 weeks. - If the pathology report reveals adenomatous tissue, then repeat the colonoscopy for surveillance in 3 years. - If the pathology report indicates hyperplastic polyp, then repeat colonoscopy for screening purposes in 5 years. Procedure Code(s): --- Professional --- 22820, Colonoscopy, flexible; with removal of tumor(s), polyp(s), or other lesion(s) by snare technique Diagnosis Code(s): --- Professional --- Z80.0, Family history of malignant neoplasm of digestive organs K63.5, Polyp of colon Z86.010, Personal history of colonic polyps K63.89, Other specified diseases of intestine CPT copyright 2019 [employer]. All rights reserved. The codes documented in this report are preliminary and upon retail asset protection specialist review may be revised to meet current compliance requirements. Burak Rod MD Burak ROD MD 04/18/2020 9:08:07 AM Electronically signed by Burak ROD MD Number of Addenda: 0 Note Initiated On: 04/18/2020 8:41 AM Estimated Blood Loss: Estimated blood loss: none.
[2020-04-18 09:32] VITALS: BP 118/72
== END 2020-06-09 13:23 | disposition home or self-care (01) ==
LOC: M OPP 07:12
PROVIDERS: ATTEND Internal Medicine Gastroenterology
DX: Z12.11 Encounter for screening for malignant neoplasm of colon (principal); Z86.010 Personal history of colon polyps; Z80.0 Family history of malignant neoplasm of digestive organs; D12.5 Benign neoplasm of sigmoid colon; K64.8 Other hemorrhoids; K63.89 Other specified diseases of intestine; R12 Heartburn; M19.90 Unspecified osteoarthritis, unspecified site; G43.909 Migraine, unspecified, not intractable, without status migrainosus; F17.210 Nicotine dependence, cigarettes, uncomplicated; M54.2 Cervicalgia; Z88.0 Allergy status to penicillin; Z79.899 Other long term (current) drug therapy; Z82.69 Family history of other diseases of the musculoskeletal system and connective tissue

== ENCOUNTER 2020-07-18 07:34 | Emergency (ER) | payer OTHER ==
[~2020-07-18] VITALS: Ht 167.6 cm; Wt 87.9 kg
[~2020-07-18 07:34] MED LIST changes: -LIDOCAINE 2% 100MG/5ML SDV (FOR ANES.) As Ordered ONE; -propofoL 200 MG/20 ML VIAL As Ordered ONE
[2020-07-18 07:35] VITALS: BP 144/80
[2020-07-18] MEDS ORDERED: TRAM50TA2 PO (07:42)
[2020-07-18] MEDS ORDERED: LIDOCAINE 5% (LIDODERM) PATCH TD ONE (09:05)
[2020-07-18 09:38] LABS: BASO # 0.1 10^3/uL (0.0-0.2); BASO % 0.7 % (0.0-1.0); EOS # 0.1 10^3/uL (0.0-0.5); EOS % 0.8 % (0.0-3.0); HEMATOCRIT 47.5 % (42.0-52.0); HEMOGLOBIN 15.7 g/dl (13.5-17.5); LYMPH # 1.6 10^3/uL (1.5-5.0); LYMPH % 20.9 % (24.0-44.0); MEAN CORPUSCULAR HEMOGLOBIN 31.2 pg (27.0-33.0); MEAN CORPUSCULAR HGB CONC 33.1 g/dl (32.0-36.5); MEAN CORPUSCULAR VOLUME 94.2 fl (80.0-96.0); MONO # 0.5 10^3/uL (0.0-0.8); MONO % 6.7 % (2.0-8.0); NEUTROPHILS # 5.3 10^3/uL (1.5-8.5); NEUTROPHILS % 70.4 % (36.0-66.0); PLATELET COUNT, AUTOMATED 202 10^3/uL (150-450); RED BLOOD COUNT 5.04 10^6/uL (4.30-6.10); WHITE BLOOD COUNT 7.5 10^3/uL (4.0-10.0)
[2020-07-18 10:15] LABS: ALBUMIN 3.8 GM/DL (3.2-5.2); ALT/SGPT 31 U/L (12-78); AMYLASE 27 U/L (25-115); BILIRUBIN,DIRECT < 0.1 MG/DL (0.0-0.2); BILIRUBIN,TOTAL 0.4 MG/DL (0.2-1.0); CK-MB VALUE MASS < 1.0 NG/ML (<3.6); CPK CREATINE PHOSPHOKINASE 120 U/L (39-308); LIPASE 84 U/L (73-393); MB/CK RELATIVE INDEX 0.83 (< OR =4); TOTAL PROTEIN 7.3 GM/DL (6.4-8.2); TROPONIN I < 0.02 NG/ML (< 0.10)
[2020-07-18] MEDS ORDERED: **NOTE PATIENT COMMENT** MISC XX SCH (21:00)
== END 2020-07-18 09:39 | disposition left against medical advice (07) ==
LOC: M ED 07:34
DX: M54.9 Dorsalgia, unspecified (principal); Z53.9 Procedure and treatment not carried out, unspecified reason; F17.200 Nicotine dependence, unspecified, uncomplicated; F12.10 Cannabis abuse, uncomplicated; Z88.0 Allergy status to penicillin

== ENCOUNTER 2020-07-18 11:53 | Emergency (ER) | payer OTHER ==
[~2020-07-18] VITALS: Ht 167.6 cm; Wt 87.3 kg
[~2020-07-18 11:53] MED LIST changes: +TRAM50TA2 PO
--- NOTE | 2020-07-18 17:48 | REP ---
INDICATION: right flank pain. COMPARISON: None. TECHNIQUE: Right upper quadrant sonography. FINDINGS: Scanning through the right upper quadrant of the abdomen demonstrates a normal sized, thin-walled gallbladder without evidence of stone or polyp. Common bile duct is normal measuring 0.4 cm in greatest diameter. No focal liver lesion is seen. Liver size is normal. No pancreatic abnormality is observed. No right renal abnormality is seen. There is no evidence of ascites. The right kidney measures 11.1 x 5.5 x 5.6 cm. IMPRESSION: Negative right upper quadrant sonography. <Electronically signed by Kj Saha > 07/18/20 [id number]
[2020-07-18 18:25] VITALS: BP 156/80
--- NOTE | 2020-07-18 20:02 | ECGEPIP ---
[facility] - ED Test Date: 2020-07-18 Pat Name: TROY ORTEGA Department: Room: - Gender: Male Florist: herb : 1970 Requested By: FORD DAY PA-C. Order Number: [id number] Reading MD: Akua Gillette Measurements Intervals [place] Rate: 59 P: 29 RI: 184 QRS: 19 QRSD: 94 T: 15 QT: 390 QTc: 386 Interpretive Statements Sinus bradycardia with premature supraventricular complexes decreased rate 04/21/18 Electronically Signed on 07-18-2020 20:03:25 EDT by Akua Gillette
== END 2020-07-18 18:29 | disposition home or self-care (01) ==
LOC: M ED 11:53
DX: R10.9 Unspecified abdominal pain (principal); R00.1 Bradycardia, unspecified; F17.200 Nicotine dependence, unspecified, uncomplicated; Z88.0 Allergy status to penicillin

== ENCOUNTER → 2020-08-08 | Outpatient (CLI) | payer OTHER ==
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
== END ==
LOC: M PAIN 08:30
PROVIDERS: ATTEND Nurse Practitioner Family
DX: M54.2 Cervicalgia (principal); G89.29 Other chronic pain; R25.1 Tremor, unspecified; F17.200 Nicotine dependence, unspecified, uncomplicated; Z88.0 Allergy status to penicillin; Z79.899 Other long term (current) drug therapy

== ENCOUNTER → 2020-09-23 | Outpatient (CLI) | payer OTHER ==
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
== END ==
LOC: M PAIN 10:30
PROVIDERS: ATTEND Nurse Practitioner Family
DX: M54.5 Low back pain (principal); G89.29 Other chronic pain; M46.1 Sacroiliitis, not elsewhere classified; G25.81 Restless legs syndrome; F17.210 Nicotine dependence, cigarettes, uncomplicated; Z88.0 Allergy status to penicillin; Z79.899 Other long term (current) drug therapy

== ENCOUNTER → 2021-07-29 | Outpatient (CLI) | payer OTHER | LOC: M PAIN 09:30 | PROVIDERS: ATTEND Nurse Practitioner Family | DX: M54.50 Low back pain, unspecified (principal); G89.29 Other chronic pain; F17.210 Nicotine dependence, cigarettes, uncomplicated; Z88.0 Allergy status to penicillin; Z79.899 Other long term (current) drug therapy ==

== ENCOUNTER → 2021-09-10 | Outpatient (CLI) | payer OTHER | LOC: M PAIN 10:30 | PROVIDERS: ATTEND Nurse Practitioner Family | DX: M51.16 Intervertebral disc disorders with radiculopathy, lumbar region (principal); G89.29 Other chronic pain; R25.1 Tremor, unspecified; F17.210 Nicotine dependence, cigarettes, uncomplicated; Z88.0 Allergy status to penicillin; Z79.899 Other long term (current) drug therapy ==

== ENCOUNTER → 2021-11-24 | Outpatient (CLI) | payer OTHER | LOC: M LABSMTC 09:26 | PROVIDERS: ATTEND Anesthesiology | DX: Z01.812 Encounter for preprocedural laboratory examination (principal); Z20.822 Contact with and (suspected) exposure to COVID-19 ==

== ENCOUNTER → 2021-11-25 | Outpatient (CLI) | payer OTHER | LOC: M PAIN 10:30 | PROVIDERS: ATTEND Nurse Practitioner Family | DX: M79.10 Myalgia, unspecified site (principal); G89.29 Other chronic pain; F17.210 Nicotine dependence, cigarettes, uncomplicated; Z88.0 Allergy status to penicillin; Z79.899 Other long term (current) drug therapy ==

== ENCOUNTER → 2021-11-26 | Outpatient (CLI) | payer OTHER ==
[~2021-11-26] MED LIST changes: +ISOVUE-M 300 61% 15ML VIAL As Ordered ONE; +LIDOCAINE 1% SDV 30ML VIAL As Ordered ONE; +NORCO, ANEXSIA 5/325MG TABLET (HYDROcodone/ACETAMINOPHEN) As Ordered ONE; +diazePAM 5MG TABLET As Ordered ONE; +methylPREDNISolone SUSP 40MG/ML 1ML VIAL (DEPO MEDROL) As Ordered ONE
== END ==
LOC: M PAIN 08:30
PROVIDERS: ATTEND Anesthesiology
DX: M51.16 Intervertebral disc disorders with radiculopathy, lumbar region (principal); F17.210 Nicotine dependence, cigarettes, uncomplicated; Z88.0 Allergy status to penicillin; Z79.899 Other long term (current) drug therapy
CPT/HCPCS: 62323; J1030; Q9967

== ENCOUNTER → 2021-12-15 | Outpatient (CLI) | payer OTHER ==
[~2021-12-15] MED LIST changes: -ISOVUE-M 300 61% 15ML VIAL As Ordered ONE; -LIDOCAINE 1% SDV 30ML VIAL As Ordered ONE; -NORCO, ANEXSIA 5/325MG TABLET (HYDROcodone/ACETAMINOPHEN) As Ordered ONE; -diazePAM 5MG TABLET As Ordered ONE; -methylPREDNISolone SUSP 40MG/ML 1ML VIAL (DEPO MEDROL) As Ordered ONE
== END ==
LOC: M SOG 08:51
PROVIDERS: ATTEND Physician Assistant
DX: M25.532 Pain in left wrist (principal); M77.8 Other enthesopathies, not elsewhere classified

== ENCOUNTER → 2022-01-05 | Outpatient (CLI) | payer OTHER | LOC: M LABSMTC 09:09 | PROVIDERS: ATTEND Anesthesiology | DX: Z01.812 Encounter for preprocedural laboratory examination (principal); Z20.822 Contact with and (suspected) exposure to COVID-19 ==

== ENCOUNTER 2022-01-08 05:58 | Day surgery (SDC) | payer OTHER ==
[~2022-01-08] VITALS: Ht 167.6 cm; Wt 88.5 kg
[2022-01-08] MEDS ORDERED: LR 1,000 ML IV SCH ×2 (06:25→08:10)
[2022-01-08] MEDS ORDERED: propofoL 200 MG/20 ML VIAL As Ordered ONE (07:10)
[2022-01-08] MEDS ORDERED: fentaNYL 100 MCG/2 ML INJECTION As Ordered ONE (07:10)
[2022-01-08] MEDS ORDERED: ONDANSETRON 4MG 2ML VIAL As Ordered ONE (07:10)
[2022-01-08] MEDS ORDERED: MIDAZOLAM INJ 2MG/2ML VIAL (J2250 PER 1MG) As Ordered ONE (07:10)
[2022-01-08] MEDS ORDERED: BUPIVACAINE HCL 0.25% 30ML VIAL As Ordered ONE (07:17)
[2022-01-08] MEDS ORDERED: HYDROmorphone HCL 2MG/ML 1ML VIAL As Ordered ONE (07:59)
[2022-01-08] MEDS ORDERED: KETOROLAC 60MG 2ML VIAL As Ordered ONE (08:07)
[2022-01-08] MEDS ORDERED: fentaNYL 100 MCG/2 ML INJECTION IV PRN (08:10)
[2022-01-08] MEDS ORDERED: ONDANSETRON 4MG 2ML VIAL IV PRN (08:10)
[2022-01-08] MEDS ORDERED: oxyCODONE 5MG TAB PO PRN (08:10)
[2022-01-08] MEDS ORDERED: HYDROMORPHONE HCL 0.5 MG/ 0.5 ML SYRINGE (J1170 PER 1) IV PRN (08:10)
[2022-01-08 09:18] VITALS: BP 153/86
== END 2022-01-08 09:43 | disposition home or self-care (01) ==
LOC: M SDC 05:58
PROVIDERS: ATTEND Orthopaedic Surgery Hand Surgery
DX: G56.02 Carpal tunnel syndrome, left upper limb (principal); M54.50 Low back pain, unspecified; Z79.899 Other long term (current) drug therapy; F17.210 Nicotine dependence, cigarettes, uncomplicated
CPT/HCPCS: 29848; J1170; J1885; J2250; J2405; J3010

== ENCOUNTER → 2022-02-08 | Outpatient (CLI) | payer OTHER | LOC: M PAIN 11:15 | PROVIDERS: ATTEND Nurse Practitioner Family | DX: M51.16 Intervertebral disc disorders with radiculopathy, lumbar region (principal); G89.29 Other chronic pain; E78.49 Other hyperlipidemia; G62.9 Polyneuropathy, unspecified; K64.4 Residual hemorrhoidal skin tags; K21.9 Gastro-esophageal reflux disease without esophagitis; M54.2 Cervicalgia; R25.1 Tremor, unspecified; M25.512 Pain in left shoulder; M25.511 Pain in right shoulder; G56.02 Carpal tunnel syndrome, left upper limb; F17.210 Nicotine dependence, cigarettes, uncomplicated; Z79.899 Other long term (current) drug therapy; Z88.0 Allergy status to penicillin ==

== ENCOUNTER → 2022-02-24 | Outpatient (CLI) | payer OTHER | LOC: M LABSMTC 11:00 | PROVIDERS: ATTEND Anesthesiology | DX: Z01.812 Encounter for preprocedural laboratory examination (principal); Z20.822 Contact with and (suspected) exposure to COVID-19 ==

== ENCOUNTER → 2022-03-01 | Outpatient (CLI) | payer OTHER ==
[~2022-03-01] MED LIST changes: +BUPIVACAINE HCL 0.25% 10ML VIAL As Ordered ONE; +BUPIVACAINE HCL 0.25% 30ML VIAL As Ordered ONE; +TRIAMCINOLONE ACETONIDE SUSP 40 MG/ML VIAL (J3301) As Ordered ONE; +diazePAM 5MG TABLET As Ordered ONE; +oxyCODONE 5MG TAB As Ordered ONE
== END ==
LOC: M PAIN 10:30
PROVIDERS: ATTEND Anesthesiology
DX: M79.10 Myalgia, unspecified site (principal); G89.29 Other chronic pain; F17.210 Nicotine dependence, cigarettes, uncomplicated; Z88.0 Allergy status to penicillin; Z79.899 Other long term (current) drug therapy
CPT/HCPCS: 20552; J3301

== ENCOUNTER → 2022-03-12 | Outpatient (CLI) | payer OTHER ==
[~2022-03-12] MED LIST changes: -BUPIVACAINE HCL 0.25% 10ML VIAL As Ordered ONE; -BUPIVACAINE HCL 0.25% 30ML VIAL As Ordered ONE; -TRIAMCINOLONE ACETONIDE SUSP 40 MG/ML VIAL (J3301) As Ordered ONE; -diazePAM 5MG TABLET As Ordered ONE; -oxyCODONE 5MG TAB As Ordered ONE
== END ==
LOC: M PAIN 11:15
PROVIDERS: ATTEND Nurse Practitioner Family
DX: M79.10 Myalgia, unspecified site (principal); G89.29 Other chronic pain; F17.210 Nicotine dependence, cigarettes, uncomplicated; Z88.0 Allergy status to penicillin; Z79.899 Other long term (current) drug therapy

== ENCOUNTER → 2022-04-11 | Outpatient (CLI) | payer OTHER | LOC: M LABSMTC 10:01 | PROVIDERS: ATTEND Anesthesiology | DX: Z01.812 Encounter for preprocedural laboratory examination (principal); Z20.822 Contact with and (suspected) exposure to COVID-19 ==

== ENCOUNTER → 2022-04-13 | Outpatient (CLI) | payer MEDICARE, OTHER ==
[~2022-04-13] MED LIST changes: +BUPIVACAINE HCL 0.25% 30ML VIAL As Ordered ONE; +ISOVUE-M 300 61% 15ML VIAL As Ordered ONE; +LIDOCAINE 1% SDV 30ML VIAL As Ordered ONE; +NORCO, ANEXSIA 5/325MG TABLET (HYDROcodone/ACETAMINOPHEN) As Ordered ONE; +diazePAM 5MG TABLET As Ordered ONE
== END ==
LOC: M PAIN 12:30
PROVIDERS: ATTEND Anesthesiology
DX: M51.16 Intervertebral disc disorders with radiculopathy, lumbar region (principal); G89.29 Other chronic pain; F17.210 Nicotine dependence, cigarettes, uncomplicated; Z88.0 Allergy status to penicillin; Z79.899 Other long term (current) drug therapy
CPT/HCPCS: 64483; J1100; Q9967

== ENCOUNTER → 2022-05-06 | Outpatient (CLI) | payer OTHER ==
[~2022-05-06] MED LIST changes: -BUPIVACAINE HCL 0.25% 30ML VIAL As Ordered ONE; -ISOVUE-M 300 61% 15ML VIAL As Ordered ONE; -LIDOCAINE 1% SDV 30ML VIAL As Ordered ONE; -NORCO, ANEXSIA 5/325MG TABLET (HYDROcodone/ACETAMINOPHEN) As Ordered ONE; -diazePAM 5MG TABLET As Ordered ONE
== END ==
LOC: M PAIN 11:30
PROVIDERS: ATTEND Nurse Practitioner Family
DX: M47.816 Spondylosis without myelopathy or radiculopathy, lumbar region (principal); G89.29 Other chronic pain; M47.817 Spondylosis without myelopathy or radiculopathy, lumbosacral region; F17.210 Nicotine dependence, cigarettes, uncomplicated; Z88.0 Allergy status to penicillin; Z79.899 Other long term (current) drug therapy

== ENCOUNTER → 2022-06-07 | Outpatient (CLI) | payer OTHER | LOC: M PAIN 10:00 | PROVIDERS: ATTEND Nurse Practitioner Family | DX: M79.10 Myalgia, unspecified site (principal); G89.29 Other chronic pain; F17.210 Nicotine dependence, cigarettes, uncomplicated; Z88.0 Allergy status to penicillin; Z88.8 Allergy status to other drugs, medicaments and biological substances; Z79.899 Other long term (current) drug therapy ==

== ENCOUNTER → 2022-06-30 | Outpatient (CLI) | payer OTHER, MEDICARE ==
[~2022-06-30] MED LIST changes: +BUPIVACAINE HCL 0.25% 30ML VIAL As Ordered ONE; +ISOVUE-M 300 61% 15ML VIAL As Ordered ONE; +LIDOCAINE 1% SDV 30ML VIAL As Ordered ONE
== END ==
LOC: M PAIN 10:30
PROVIDERS: ATTEND Anesthesiology
DX: M47.817 Spondylosis without myelopathy or radiculopathy, lumbosacral region (principal); G89.29 Other chronic pain; F17.210 Nicotine dependence, cigarettes, uncomplicated; Z88.0 Allergy status to penicillin; Z88.8 Allergy status to other drugs, medicaments and biological substances; Z79.899 Other long term (current) drug therapy
CPT/HCPCS: 64493; 64494; Q9967; S0020

== ENCOUNTER → 2022-06-30 | Outpatient (CLI) | payer OTHER ==
[~2022-06-30] MED LIST changes: -BUPIVACAINE HCL 0.25% 30ML VIAL As Ordered ONE; -ISOVUE-M 300 61% 15ML VIAL As Ordered ONE; -LIDOCAINE 1% SDV 30ML VIAL As Ordered ONE
== END ==
LOC: M LABSMTC 11:10
PROVIDERS: ATTEND Anesthesiology
DX: Z01.818 Encounter for other preprocedural examination (principal); Z11.52 Encounter for screening for COVID-19

== ENCOUNTER → 2022-07-23 | Outpatient (CLI) | payer OTHER, MEDICARE | LOC: M PAIN 11:15 | PROVIDERS: ATTEND Nurse Practitioner Family | DX: M47.816 Spondylosis without myelopathy or radiculopathy, lumbar region (principal); M47.817 Spondylosis without myelopathy or radiculopathy, lumbosacral region; F17.210 Nicotine dependence, cigarettes, uncomplicated; Z88.0 Allergy status to penicillin; Z88.8 Allergy status to other drugs, medicaments and biological substances; Z79.899 Other long term (current) drug therapy ==

== ENCOUNTER → 2022-08-16 | Outpatient (CLI) | payer MEDICARE, OTHER | LOC: M PAIN 09:00 | PROVIDERS: ATTEND Nurse Practitioner Family | DX: M79.10 Myalgia, unspecified site (principal); G89.29 Other chronic pain; F17.210 Nicotine dependence, cigarettes, uncomplicated; Z88.0 Allergy status to penicillin; Z88.8 Allergy status to other drugs, medicaments and biological substances; Z79.899 Other long term (current) drug therapy ==

== ENCOUNTER → 2022-08-24 | Outpatient (REF) | payer OTHER, MEDICARE ==
[2022-08-24 13:40] LABS: ALBUMIN 3.7 G/DL (3.2-5.2); ALKALINE PHOSPHATASE 116 U/L (46-116); ALT/SGPT 20 U/L (7.0-40); AST/SGOT 12 U/L (<34); BILIRUBIN,TOTAL 0.3 MG/DL (0.3-1.2); BLOOD UREA NITROGEN 21 MG/DL (9-23); CALCIUM LEVEL 9.2 MG/DL (8.5-10.1); CARBON DIOXIDE LEVEL 23 MMOL/L (20-31); CHLORIDE LEVEL 110 MMOL/L (98-107); CHOLESTEROL LEVEL 132 MG/DL (<200); CHOLESTEROL RISK RATIO 4.23 (<5); CREATININE FOR GFR 0.78 MG/DL (0.70-1.30); GLOMERULAR FILTRATION RATE > 60.0 (>56); GLUCOSE, FASTING 97 MG/DL (60-100); HDL CHOLESTEROL 31.2 MG/DL (>40); LDL CHOLESTEROL 60.4 MG/DL (<100); NON-HDL-C 100.8 MG/DL; POTASSIUM SERUM 4.2 MMOL/L (3.5-5.1); SODIUM LEVEL 139 MMOL/L (136-145); TOTAL PROTEIN 6.6 G/DL (5.7-8.2); TRIGLYCERIDES LEVEL 202 MG/DL (<150)
[2022-08-24 13:42] LABS: FREE T4 0.95 NG/DL (0.89-1.76); THYROID STIMULATING HORMONE 1.829 uIU/ML (0.55-4.78)
== END ==
LOC: M LAB REF 13:00
PROVIDERS: ATTEND Family Medicine Addiction Medicine
DX: E78.49 Other hyperlipidemia (principal)

== ENCOUNTER → 2022-09-06 | Outpatient (CLI) | payer OTHER ==
[~2022-09-06] MED LIST changes: +ISOVUE-M 300 61% 15ML VIAL As Ordered ONE; +LIDOCAINE 1% SDV 30ML VIAL As Ordered ONE
== END ==
LOC: M PAIN 08:00
PROVIDERS: ATTEND Anesthesiology
DX: M47.817 Spondylosis without myelopathy or radiculopathy, lumbosacral region (principal); G89.29 Other chronic pain; F17.210 Nicotine dependence, cigarettes, uncomplicated; Z88.0 Allergy status to penicillin; Z88.8 Allergy status to other drugs, medicaments and biological substances; Z79.899 Other long term (current) drug therapy
CPT/HCPCS: 64493; 64494; Q9967

== ENCOUNTER → 2022-10-13 | Outpatient (CLI) | payer OTHER ==
[~2022-10-13] MED LIST changes: -ISOVUE-M 300 61% 15ML VIAL As Ordered ONE; -LIDOCAINE 1% SDV 30ML VIAL As Ordered ONE
== END ==
LOC: M PAIN 09:15 → M TMPAIN 09:15
PROVIDERS: ATTEND Anesthesiology
DX: M47.817 Spondylosis without myelopathy or radiculopathy, lumbosacral region (principal); G89.29 Other chronic pain; F17.210 Nicotine dependence, cigarettes, uncomplicated; Z88.0 Allergy status to penicillin; Z88.8 Allergy status to other drugs, medicaments and biological substances; Z79.899 Other long term (current) drug therapy

== ENCOUNTER → 2022-12-17 | Outpatient (CLI) | payer OTHER, MEDICAID ==
[~2022-12-17] MED LIST changes: +LIDOCAINE 1% SDV 30ML VIAL As Ordered ONE; +dexAMETHasone 10MG/1ML VIAL PRES.FREE As Ordered ONE; +diazePAM 5MG TABLET As Ordered ONE; +oxyCODONE 5MG TAB As Ordered ONE
== END ==
LOC: M PAIN 14:30
PROVIDERS: ATTEND Anesthesiology
DX: M47.816 Spondylosis without myelopathy or radiculopathy, lumbar region (principal); G89.29 Other chronic pain; F17.200 Nicotine dependence, unspecified, uncomplicated; E66.01 Morbid (severe) obesity due to excess calories; Z68.42 Body mass index [BMI] 45.0-49.9, adult; Z79.899 Other long term (current) drug therapy
CPT/HCPCS: 64635; 64636; J0665; J1100

== ENCOUNTER → 2023-01-03 | Outpatient (CLI) | payer OTHER, MEDICAID ==
[~2023-01-03] MED LIST changes: -LIDOCAINE 1% SDV 30ML VIAL As Ordered ONE; -dexAMETHasone 10MG/1ML VIAL PRES.FREE As Ordered ONE; -diazePAM 5MG TABLET As Ordered ONE; -oxyCODONE 5MG TAB As Ordered ONE
== END ==
LOC: M PAIN 10:45
PROVIDERS: ATTEND Anesthesiology
DX: M79.2 Neuralgia and neuritis, unspecified (principal); G89.29 Other chronic pain; F17.200 Nicotine dependence, unspecified, uncomplicated; Z88.0 Allergy status to penicillin; E66.01 Morbid (severe) obesity due to excess calories; Z68.42 Body mass index [BMI] 45.0-49.9, adult; Z79.899 Other long term (current) drug therapy

== ENCOUNTER → 2023-03-16 | Outpatient (CLI) | payer OTHER, MEDICAID | LOC: M PAIN 11:45 | PROVIDERS: ATTEND Anesthesiology | DX: M47.816 Spondylosis without myelopathy or radiculopathy, lumbar region (principal); M51.16 Intervertebral disc disorders with radiculopathy, lumbar region; G89.29 Other chronic pain; F17.200 Nicotine dependence, unspecified, uncomplicated; Z88.0 Allergy status to penicillin; E66.01 Morbid (severe) obesity due to excess calories; Z68.43 Body mass index [BMI] 50.0-59.9, adult; Z79.899 Other long term (current) drug therapy ==

== ENCOUNTER → 2023-05-04 | Outpatient (CLI) | payer OTHER, MEDICAID | LOC: M PAIN 11:30 | PROVIDERS: ATTEND Anesthesiology | DX: M47.816 Spondylosis without myelopathy or radiculopathy, lumbar region (principal); M51.16 Intervertebral disc disorders with radiculopathy, lumbar region; G89.29 Other chronic pain; Z79.899 Other long term (current) drug therapy; Z88.0 Allergy status to penicillin; F17.200 Nicotine dependence, unspecified, uncomplicated ==

== ENCOUNTER → 2023-07-27 | Outpatient (CLI) | payer OTHER, MEDICAID | LOC: M PAIN 09:00 | PROVIDERS: ATTEND Anesthesiology | DX: M51.16 Intervertebral disc disorders with radiculopathy, lumbar region (principal); M47.816 Spondylosis without myelopathy or radiculopathy, lumbar region; F17.200 Nicotine dependence, unspecified, uncomplicated; Z79.891 Long term (current) use of opiate analgesic; Z79.899 Other long term (current) drug therapy ==

== ENCOUNTER → 2023-08-25 | Day surgery (SDC) | payer OTHER, MEDICAID ==
[~2023-08-25] VITALS: Ht 167.6 cm; Wt 89.4 kg
[~2023-08-25] MED LIST changes: +NS 1,000 ML IV ONE; +OMEP-173 PO
== END | disposition home or self-care (01) ==
LOC: M OPP 08:01
PROVIDERS: ATTEND Internal Medicine Gastroenterology
DX: Z86.010 Personal history of colon polyps (principal); Z80.0 Family history of malignant neoplasm of digestive organs; Z53.8 Procedure and treatment not carried out for other reasons

== ENCOUNTER 2023-11-01 07:46 | Day surgery (SDC) | payer OTHER, MEDICAID ==
[~2023-11-01] VITALS: Ht 167.6 cm; Wt 86.6 kg
[~2023-11-01 07:46] MED LIST changes: -NS 1,000 ML IV ONE
[2023-11-01] MEDS: NS 1,000 ML IV ONE (08:01)
[2023-11-01] MEDS ORDERED: LIDOCAINE 2% 100MG/5ML SDV (FOR ANES.) As Ordered ONE (08:24)
[2023-11-01] MEDS ORDERED: propofoL 200 MG/20 ML VIAL As Ordered ONE (08:24)
[2023-11-01 09:43] VITALS: TEMP 98.5
[2023-11-01 09:59] VITALS: BP 136/75; O2SAT 97
== END 2023-11-01 10:23 | disposition home or self-care (01) ==
LOC: M OPP 07:46
PROVIDERS: ATTEND Internal Medicine Gastroenterology
DX: Z86.010 Personal history of colon polyps (principal); Z80.0 Family history of malignant neoplasm of digestive organs; D12.2 Benign neoplasm of ascending colon; C7A.012 Malignant carcinoid tumor of the ileum; F17.200 Nicotine dependence, unspecified, uncomplicated; Z79.891 Long term (current) use of opiate analgesic; Z79.899 Other long term (current) drug therapy; Z88.0 Allergy status to penicillin

== ENCOUNTER → 2023-11-28 | Outpatient (CLI) | payer OTHER, MEDICAID ==
[~2023-11-28] MED LIST changes: +CHOL400T PO; +GABA-1635 PO; -GABA800T4 PO
== END ==
LOC: M PAIN 09:00
PROVIDERS: ATTEND Nurse Practitioner Family
DX: M47.812 Spondylosis without myelopathy or radiculopathy, cervical region (principal); G89.29 Other chronic pain; F17.200 Nicotine dependence, unspecified, uncomplicated; Z79.899 Other long term (current) drug therapy; Z88.0 Allergy status to penicillin

== ENCOUNTER → 2023-12-20 | Outpatient (CLI) | payer OTHER, MEDICAID ==
[~2023-12-20] MED LIST changes: +CEFD1CAP9 PO; +CVS1CAP2 PO; +D-10TAB2 PO; +DOXY-440 PO
== END ==
LOC: M PLAIMG 07:39
PROVIDERS: ATTEND Surgery
DX: C7A.012 Malignant carcinoid tumor of the ileum (principal)

== ENCOUNTER 2023-12-22 09:18 | Inpatient (IN) | payer OTHER, MEDICAID ==
[2023-12-22] VITALS (7 sets, daily range): BP systolic 137–147; BP diastolic 88–92; TEMP 97.9–98.2; O2SAT 91–94
[~2023-12-22] VITALS: Ht 167.6 cm; Wt 84.2 kg
[~2023-12-22 09:18] MED LIST changes: -CEFD1CAP9 PO; -CVS1CAP2 PO; -D-10TAB2 PO; -DOXY-440 PO
[2023-12-22] MEDS ORDERED: LR 1,000 ML IV SCH (09:40)
[2023-12-22] MEDS ORDERED: OMEP-173 PO (10:46)
[2023-12-22] MEDS ORDERED: GABA-1635 PO (10:46)
[2023-12-22] MEDS ORDERED: HOME MED LIST COMPLETE! XX SCH (10:50)
[2023-12-22] MEDS ORDERED: MIDAZOLAM INJ 2MG/2ML VIAL As Ordered ONE (10:51)
[2023-12-22] MEDS ORDERED: LIDOCAINE 2% 100MG/5ML SDV (FOR ANES.) As Ordered ONE (10:51)
[2023-12-22] MEDS ORDERED: propofoL 200 MG/20 ML VIAL As Ordered ONE (10:51)
[2023-12-22] MEDS ORDERED: fentaNYL 250 MCG/5 ML INJECTION As Ordered ONE (10:51)
[2023-12-22] MEDS ORDERED: ROCURONIUM BROMIDE 50MG/5ML VIAL As Ordered ONE (10:51)
[2023-12-22] MEDS: metroNIDAZOLE 500 MG in IV 1 EA IV ONE (11:15)
[2023-12-22] MEDS ORDERED: PHENYLephrine 500MCG 5ML (100MCG/ML) SYRINGE As Ordered ONE (12:30)
[2023-12-22] MEDS ORDERED: HYDROmorphone HCL 2MG/ML 1ML VIAL As Ordered ONE (12:33)
[2023-12-22] MEDS ORDERED: ONDANSETRON 4MG 2ML VIAL As Ordered ONE (12:38)
[2023-12-22] MEDS ORDERED: ACETAMINOPHEN 1000MG 100ML IV BAG As Ordered ONE (12:38)
[2023-12-22] MEDS ORDERED: SUGAMMADEX SODIUM 500 MG/5 ML VIAL (BRIDION) As Ordered ONE (12:38)
[2023-12-22] MEDS: ceFAZolin SOD 2 GM in IV 1 EA IV ONE (12:42)
[2023-12-22] MEDS ORDERED: HYDROMORPHONE HCL 0.5 MG/ 0.5 ML SYRINGE IV PRN (15:05)
[2023-12-22] MEDS ORDERED: fentaNYL 100 MCG/2 ML INJECTION IV PRN (15:05)
[2023-12-22] MEDS ORDERED: ONDANSETRON 4MG 2ML VIAL IV PRN (15:05)
[2023-12-22] MEDS ORDERED: oxyCODONE 5MG TAB PO PRN (15:05)
[2023-12-22] MEDS ORDERED: PIPERACILLIN/TAZOBACTAM SOD 3.375 GM in D5W MINI-BAG PLUS 50 ML IV SCH (15:55)
[2023-12-22] MEDS: LR 1,000 ML IV SCH (17:16)
[2023-12-22] MEDS: NS 1,000 ML IV SCH (18:12)
[2023-12-22] MEDS: NORCO, ANEXSIA 5/325MG TABLET (HYDROcodone/ACETAMINOPHEN) PO PRN (19:44)
[2023-12-22] MEDS: SENOKOT S TAB PO SCH (19:45)
[2023-12-22] MEDS: ONDANSETRON 4MG 2ML VIAL IV PRN (21:37)
[2023-12-22] MEDS: MORPHINE 2 MG/ML 1ML VIAL IV PRN (21:37)
[2023-12-22] MEDS: KETOROLAC 30 MG/ML 1ML VIAL IV PRN (22:52)
[2023-12-23] VITALS (8 sets, daily range): BP systolic 128–142; BP diastolic 78–85; TEMP 97.5–98.1; O2SAT 94–96
[2023-12-23 06:10] LABS: HEMATOCRIT 38.7 % (42.0-52.0); HEMOGLOBIN 13.1 g/dl (13.5-17.5); MEAN CORPUSCULAR HEMOGLOBIN 30.8 pg (27.0-33.0); MEAN CORPUSCULAR HGB CONC 33.9 g/dl (32.0-36.5); MEAN CORPUSCULAR VOLUME 91.1 fl (80.0-96.0); PLATELET COUNT, AUTOMATED 161 10^3/uL (150-450); RED BLOOD COUNT 4.25 10^6/uL (4.30-6.10); WHITE BLOOD COUNT 10.5 10^3/uL (4.0-10.0)
[2023-12-23 06:48] LABS: ALBUMIN 3.1 G/DL (3.2-5.2); ALKALINE PHOSPHATASE 95 U/L (46-116); ALT/SGPT 16 U/L (7.0-40); AST/SGOT < 8 U/L (<34); BILIRUBIN,TOTAL 0.6 MG/DL (0.3-1.2); BLOOD UREA NITROGEN 13 MG/DL (9-23); CALCIUM LEVEL 8.5 MG/DL (8.5-10.1); CARBON DIOXIDE LEVEL 24 MMOL/L (20-31); CHLORIDE LEVEL 112 MMOL/L (98-107); CREATININE FOR GFR 0.82 MG/DL (0.70-1.30); GLOMERULAR FILTRATION RATE > 60.0 (>56); GLUCOSE, FASTING 110 MG/DL (60-100); POTASSIUM SERUM 4.1 MMOL/L (3.5-5.1); SODIUM LEVEL 141 MMOL/L (136-145); TOTAL PROTEIN 5.7 G/DL (5.7-8.2)
[2023-12-23] MEDS: PANTOPRAZOLE 40MG TAB (PROTONIX) PO SCH (08:40)
[2023-12-23] MEDS: ENOXAPARIN 40MG/0.4ML SYRINGE (J1650 PER 10MG) SC SCH (08:43)
[2023-12-23] MEDS: NORCO, ANEXSIA 5/325MG TABLET (HYDROcodone/ACETAMINOPHEN) PO PRN (14:22)
[2023-12-24] MEDS ORDERED: D-10TAB2 PO (06:23)
== END 2023-12-23 21:29 | disposition left against medical advice (07) | DRG 331 ==
LOC: M OR 09:18 → M MSPAV 16:28
PROVIDERS: ADMIT Surgery; ATTEND Surgery
PROC: 0DBB4ZZ Excision of Ileum, Percutaneous Endoscopic Approach (ICD-10-PCS; 2023-12-22)
PROC: 8E0W4CZ Robotic Assisted Procedure of Trunk Region, Percutaneous Endoscopic Approach (ICD-10-PCS; 2023-12-22)
PROC: 0DTH4ZZ Resection of Cecum, Percutaneous Endoscopic Approach (ICD-10-PCS; principal; 2023-12-22 11:20)
DX: C17.2 Malignant neoplasm of ileum (principal); K21.9 Gastro-esophageal reflux disease without esophagitis; Z88.0 Allergy status to penicillin

== ENCOUNTER 2023-12-24 01:23 | Inpatient (IN) | payer OTHER, MEDICAID ==
[2023-12-24] MEDS: NS 1,000 ML IV ONE (02:15)
[2023-12-24 02:19] LABS: BASO % 0.3 % (0.0-1.0); EOS % 0.3 % (0.0-3.0); HEMATOCRIT 42.3 % (42.0-52.0); HEMOGLOBIN 14.5 g/dl (13.5-17.5); LYMPH # 2.2 10^3/uL (1.5-5.0); MEAN CORPUSCULAR HEMOGLOBIN 31.5 pg (27.0-33.0); MEAN CORPUSCULAR HGB CONC 34.3 g/dl (32.0-36.5); MEAN CORPUSCULAR VOLUME 91.8 fl (80.0-96.0); MONO # 0.7 10^3/uL (0.0-0.8); MONO % 6.4 % (2.0-8.0); NEUTROPHILS # 8.6 10^3/uL (1.5-8.5); NEUTROPHILS % 73.7 % (36.0-66.0); PLATELET COUNT, AUTOMATED 188 10^3/uL (150-450); RED BLOOD COUNT 4.61 10^6/uL (4.30-6.10); WHITE BLOOD COUNT 11.6 10^3/uL (4.0-10.0)
[2023-12-24] MEDS ORDERED: ISOVUE-370 76% 100ML VIAL As Ordered ONE (02:21)
[2023-12-24] MEDS: HYDROMORPHONE HCL 0.5 MG/ 0.5 ML SYRINGE IV ONE (02:26)
[2023-12-24] MEDS: ONDANSETRON 4MG 2ML VIAL IV ONE (02:35)
[2023-12-24 02:57] LABS: ALBUMIN 3.5 G/DL (3.2-5.2); ALKALINE PHOSPHATASE 100 U/L (46-116); ALT/SGPT 18 U/L (7.0-40); AST/SGOT 9 U/L (<34); BILIRUBIN,TOTAL 0.8 MG/DL (0.3-1.2); BLOOD UREA NITROGEN 10 MG/DL (9-23); CALCIUM LEVEL 8.8 MG/DL (8.5-10.1); CARBON DIOXIDE LEVEL 22 MMOL/L (20-31); CHLORIDE LEVEL 111 MMOL/L (98-107); CREATININE FOR GFR 0.83 MG/DL (0.70-1.30); GLOMERULAR FILTRATION RATE > 60.0 (>56); GLUCOSE, FASTING 116 MG/DL (60-100); MAGNESIUM LEVEL 1.7 MG/DL (1.8-2.4); POTASSIUM SERUM 3.7 MMOL/L (3.5-5.1); SODIUM LEVEL 140 MMOL/L (136-145); TOTAL PROTEIN 6.2 G/DL (5.7-8.2)
[2023-12-24] MEDS: KCL 20MEQ in NS 1000ML 1,000 ML IV SCH (05:29)
[2023-12-24] MEDS: MAG SULF 1GM/100ML (MAG RUN) 1 GM in IV 1 EA IV ONE (05:29)
[2023-12-24 05:45] VITALS: BP 146/84; TEMP 97.9; O2SAT 98
[2023-12-24] MEDS ORDERED: ONDANSETRON 4MG 2ML VIAL IV PRN (05:55)
[2023-12-24] MEDS ORDERED: D-10TAB2 PO (06:23)
[2023-12-24] MEDS ORDERED: HOME MED LIST COMPLETE! XX SCH (06:25)
[2023-12-24] MEDS: ACETAMINOPHEN *IV* 1,000 MG in IV 1 EA IV PRN (06:25)
[2023-12-24] MEDS: PANTOPRAZOLE 40MG VIAL IV SCH (08:23)
[2023-12-24 10:07] LABS: HEMATOCRIT 42.5 % (42.0-52.0); HEMOGLOBIN 14.6 g/dl (13.5-17.5); MEAN CORPUSCULAR HEMOGLOBIN 31.6 pg (27.0-33.0); MEAN CORPUSCULAR HGB CONC 34.4 g/dl (32.0-36.5); PLATELET COUNT, AUTOMATED 180 10^3/uL (150-450); RED BLOOD COUNT 4.62 10^6/uL (4.30-6.10); WHITE BLOOD COUNT 10.5 10^3/uL (4.0-10.0)
[2023-12-24 11:11] LABS: BLOOD UREA NITROGEN 8 MG/DL (9-23); CALCIUM LEVEL 8.2 MG/DL (8.5-10.1); CARBON DIOXIDE LEVEL 23 MMOL/L (20-31); CHLORIDE LEVEL 110 MMOL/L (98-107); CREATININE FOR GFR 0.77 MG/DL (0.70-1.30); GLOMERULAR FILTRATION RATE > 60.0 (>56); GLUCOSE, FASTING 101 MG/DL (60-100); POTASSIUM SERUM 4.1 MMOL/L (3.5-5.1); SODIUM LEVEL 139 MMOL/L (136-145)
[2023-12-24 12:00] VITALS: BP 138/85; TEMP 98.6; O2SAT 93
[2023-12-24] MEDS ORDERED: MORPHINE 2 MG/ML 1ML VIAL IV PRN (12:20)
[2023-12-24] MEDS: ONDANSETRON 4MG 2ML VIAL IV PRN (12:41)
[2023-12-24] MEDS: MORPHINE 4 MG/ML 1ML VIAL IV PRN (12:42)
[2023-12-24 16:30] VITALS: BP 140/88; TEMP 97.7; O2SAT 95
[2023-12-24 19:58] VITALS: BP 130/95; TEMP 98.1
[2023-12-24] MEDS: diphenhydrAMINE 50MG/ML VIAL IV ONE (20:46)
[2023-12-24] MEDS ORDERED: ENOXAPARIN 40MG/0.4ML SYRINGE (J1650 PER 10MG) SC SCH (21:00)
[2023-12-24 21:54] VITALS: BP 130/95; TEMP 98.1; O2SAT 98
[2023-12-24 21:56] VITALS: BP 130/95; TEMP 98.1; O2SAT 98
[2023-12-24] MEDS ORDERED: SODIUM CHLORIDE NASAL 0.65% SPRAY BTL (OCEAN) PRN (23:50)
[2023-12-25 00:47] VITALS: BP 134/94; TEMP 98.1; O2SAT 93
[2023-12-25 04:00] VITALS: BP 144/84; TEMP 97.9; O2SAT 93
[2023-12-25 07:16] LABS: HEMATOCRIT 39.8 % (42.0-52.0); HEMOGLOBIN 13.7 g/dl (13.5-17.5); MEAN CORPUSCULAR HGB CONC 34.4 g/dl (32.0-36.5); PLATELET COUNT, AUTOMATED 164 10^3/uL (150-450); RED BLOOD COUNT 4.28 10^6/uL (4.30-6.10); WHITE BLOOD COUNT 9.3 10^3/uL (4.0-10.0)
[2023-12-25 07:35] LABS: BLOOD UREA NITROGEN 5 MG/DL (9-23); CALCIUM LEVEL 8.1 MG/DL (8.5-10.1); CARBON DIOXIDE LEVEL 25 MMOL/L (20-31); CHLORIDE LEVEL 110 MMOL/L (98-107); CREATININE FOR GFR 0.81 MG/DL (0.70-1.30); GLOMERULAR FILTRATION RATE > 60.0 (>56); GLUCOSE, FASTING 87 MG/DL (60-100); MAGNESIUM LEVEL 1.6 MG/DL (1.8-2.4); POTASSIUM SERUM 4.2 MMOL/L (3.5-5.1); SODIUM LEVEL 141 MMOL/L (136-145)
[2023-12-25 08:00] VITALS: BP 143/81; TEMP 97.9; O2SAT 98
[2023-12-25] MEDS: CHLORASEPTIC SPRAY MT PRN (09:05)
[2023-12-25 12:00] VITALS: BP 140/70; TEMP 97.9; O2SAT 93
[2023-12-25 16:00] VITALS: BP 133/81; TEMP 97.5; O2SAT 99
[2023-12-25] MEDS: MAG SULF 1GM/100ML (MAG RUN) 1 GM in IV 1 EA IV SCH (16:40)
[2023-12-25 19:51] VITALS: BP 142/81; TEMP 98.1; O2SAT 98
[2023-12-26 03:40] VITALS: BP 125/69; TEMP 98.2; O2SAT 94
[2023-12-26 07:20] LABS: BLOOD UREA NITROGEN 5 MG/DL (9-23); CALCIUM LEVEL 8.4 MG/DL (8.5-10.1); CARBON DIOXIDE LEVEL 21 MMOL/L (20-31); CHLORIDE LEVEL 112 MMOL/L (98-107); CREATININE FOR GFR 0.77 MG/DL (0.70-1.30); GLOMERULAR FILTRATION RATE > 60.0 (>56); GLUCOSE, FASTING 101 MG/DL (60-100); MAGNESIUM LEVEL 1.8 MG/DL (1.8-2.4); POTASSIUM SERUM 4.6 MMOL/L (3.5-5.1); SODIUM LEVEL 140 MMOL/L (136-145)
[2023-12-26] MEDS ORDERED: KETO10TAB PO ×2 (11:04→11:39)
[2023-12-26] MEDS ORDERED: CVS1CAP2 PO (11:15)
[2023-12-26 12:00] VITALS: BP_SYST 132; BP_SYST 142; BP_DIAS 79; BP_DIAS 85; TEMP 97.5; TEMP 97.7; O2SAT 97; O2SAT 98
[2023-12-26] MEDS ORDERED: DOXY-440 PO (18:57)
[2023-12-26] MEDS ORDERED: CEFD1CAP9 PO (18:57)
== END 2023-12-26 13:25 | disposition home or self-care (01) | DRG 394 ==
LOC: M ED 01:23 → M ED INP 04:31 → M MS5PR 05:50
PROVIDERS: ADMIT Preventive Medicine Undersea and Hyperbaric Medicine; ATTEND Student in an Organized Health Care Education/Training Program
DX: K91.89 Other postprocedural complications and disorders of digestive system (principal); K56.7 Ileus, unspecified; K62.5 Hemorrhage of anus and rectum; K56.609 Unspecified intestinal obstruction, unspecified as to partial versus complete obstruction; K21.9 Gastro-esophageal reflux disease without esophagitis; E83.42 Hypomagnesemia; M54.9 Dorsalgia, unspecified; G62.9 Polyneuropathy, unspecified; G89.29 Other chronic pain; Z90.49 Acquired absence of other specified parts of digestive tract; Z88.0 Allergy status to penicillin

== ENCOUNTER → 2024-01-02 | Outpatient (CLI) | payer OTHER, MEDICAID ==
[~2024-01-02] MED LIST changes: +CEFD1CAP9 PO; +CVS1CAP2 PO; +D-10TAB2 PO; +DOXY-440 PO
== END ==
LOC: M LAB 16:10
PROVIDERS: ATTEND Family Medicine Addiction Medicine
DX: R78.81 Bacteremia (principal)

== ENCOUNTER → 2024-02-01 | Outpatient (CLI) | payer OTHER, MEDICAID | LOC: M PLAIMG 01-20 12:18 → M RAD 06:15 | PROVIDERS: ATTEND Nurse Practitioner Family | DX: M47.812 Spondylosis without myelopathy or radiculopathy, cervical region (principal) ==

== ENCOUNTER → 2024-03-30 | Outpatient (CLI) | payer MEDICARE, MEDICAID ==
[~2024-03-30] MED LIST changes: +CALC500C16 PO
== END ==
LOC: M PAIN 15:30
PROVIDERS: ATTEND Nurse Practitioner Family
DX: M47.812 Spondylosis without myelopathy or radiculopathy, cervical region (principal); G89.29 Other chronic pain; F17.200 Nicotine dependence, unspecified, uncomplicated; Z79.899 Other long term (current) drug therapy; Z88.0 Allergy status to penicillin; E66.01 Morbid (severe) obesity due to excess calories; Z68.43 Body mass index [BMI] 50.0-59.9, adult

== ENCOUNTER → 2024-11-02 | Outpatient (CLI) | payer MEDICARE, MEDICAID ==
[~2024-11-02] MED LIST changes: +DIVA-41 PO; -DIVA500T94 PO; +LIDO1ADH93 TOP; -LIDO5DIS41 TOP
== END ==
LOC: M PLARAD 15:01
PROVIDERS: ATTEND Physician Assistant
DX: M51.362 Other intervertebral disc degeneration, lumbar region with discogenic back pain and lower extremity pain (principal); M47.816 Spondylosis without myelopathy or radiculopathy, lumbar region; M51.27 Other intervertebral disc displacement, lumbosacral region